=== PATIENT | female | born 1970 | race Caucasian/White ===

== ENCOUNTER 2017-04-27 04:14 | Emergency (ER) | payer OTHER ==
[2017-04-27] MEDS ORDERED: LORazepam 2 MG/ML MDV IVPUSH ONE (04:35)
[2017-04-27] MEDS ORDERED: Ondansetron 4 MG/2 ML SDV IVPUSH ONE (04:35)
[2017-04-27] MEDS ORDERED: Morphine 2 MG/ML Syringe IVPUSH ONE (04:37)
[2017-04-27] MEDS ORDERED: Sodium Chloride 0.9% 1,000 ML IV SCH (04:45)
--- NOTE | 2017-04-27 07:30 | EDM.PDOC ---
<Hodan Holguin - Last Filed: 04/27/17 07:24> ED HPI GENERAL MEDICAL PROBLEM - General Chief Complaint: Gastrointestinal Problem Stated Complaint: VOMITING Time Seen by Provider: 04/27/17 07:24 Source of Information: Reports: Patient History Limitations: Reports: No Limitations - History of Present Illness INITIAL COMMENTS - FREE TEXT/NARRATIVE: pt arrived with marked vomiting from the percocet for the shoulder surgery she had today. She has not been able to hold anything down. Onset: Today Duration: Hour(s): Location: Reports: Upper Extremity, Left Associated Symptoms: Reports: No Other Symptoms left shoulder pain. Pain Score (Numeric/FACES): 9 abdominal pain Pain Score (Numeric/FACES): 5 - Related Data Allergies Allergy/AdvReac Type Severity Reaction Status Date / Time hydromorphone [From Dilaudid] Allergy Nausea Verified 04/27/17 04:55 oxycodone Allergy Nausea and Verified 04/27/17 04:55 Vomiting Home Meds: Home Meds Levonorgestrel-Ethin Estradiol [Orsythia-28 Tablet] 1 tab PO DAILY 09/09/13 [ History] Valsartan/Hydrochlorothiazide [Valsartan-Hctz 80-12.5 mg Tab] 1 tab PO DAILY [History] Ca Citrate/Mgox/Vit D3/B6/Min [Calcium Citrate Plus Tablet] 1,200 mg PO DAILY [History] Fluticasone Propionate [Flonase] 2 spray NASBOTH DAILY PRN 04/03/14 [History] Omeprazole 20 mg PO BIDAC 04/03/14 [History] Topiramate [Topamax] 50 mg PO DAILY 04/03/14 [History] Cyanocobalamin (Vitamin B-12) [Vitamin B-12] 1,000 mcg SL DAILY 09/12/14 [ History] Multivitamin/Iron/Folic Acid [Multi-Day Plus Iron Tablet] 1 tab PO BID 10/24/14 [History] Dicyclomine [Bentyl] 10 mg PO QIDACANDBED PRN 09/23/16 [History] Metoclopramide HCl [Reglan] 10 mg PO Q6H PRN 09/23/16 [History] Ondansetron [Zofran ODT] 4 mg PO Q4H PRN 09/23/16 [History] Oxybutynin Chloride [Ditropan Xl] 5 mg PO DAILY 09/23/16 [History] Pantoprazole Sodium [Protonix] 40 mg PO BID 09/23/16 [History] Cyanocobalamin (Vitamin B-12) [Vitamin B-12] 1,000 mcg SL DAILY 04/27/17 [ History] Gabapentin [Neurontin] 300 mg PO BID 04/27/17 [History] Potassium Chloride [Klor-Con M10] 10 meq PO BID 04/27/17 [History] Thiamine [Vitamin B-1] 100 mg PO DAILY 04/27/17 [History] oxyCODONE [Oxycodone HCl] 10 mg PO Q4H PRN 04/27/17 [History] Past Medical History 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: Reports: Hypertension 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: - Infectious Disease History Infectious Disease History: Reports: Chicken Pox - Past Surgical History HEENT Surgical History: Reports: Tonsillectomy GI Surgical History: Reports: Appendectomy, Bariatric Procedure, Cholecystectomy , EGD, Hernia Repair/Other, Small Bowel Female Surgical History: Reports: Section Endocrine Surgical History: Reports: Other (See Below) Other Endocrine Surgeries/Procedures: partial thyroidectomy Musculoskeletal Surgical History: Reports: Knee Replacement, Shoulder Surgery Social & Family History - Tobacco Use Smoking Status *Q: Never Smoker Years of Tobacco use: 10 Used Tobacco, but Quit: Yes Month Tobacco Last Used: Dec 1995 Second Hand Smoke Exposure: No - Caffeine Use Caffeine Use: Reports: Soda - Alcohol Use Days Per Week of Alcohol Use: 0 Number of Drinks Per Day: 1 Total Drinks Per Week: 0 - Recreational Drug Use Recreational Drug Use: No ED ROS GENERAL - Review of Systems Review Of Systems: See Below Constitutional: Reports: No Symptoms HEENT: Reports: No Symptoms Respiratory: Reports: No Symptoms 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: Reports: No Symptoms Endocrine: Reports: No Symptoms GI/Abdominal: Reports: Vomiting : Reports: No Symptoms Musculoskeletal: Reports: No Symptoms Skin: Reports: No Symptoms ED EXAM, GI/ABD - Physical Exam Exam: See Below Text/Narrative:: pt had shoulder surgery today. She was given percocet and became very ill from that. She has vomited for many hours. Exam Limited By: No Limitations General Appearance: Alert, Anxious, Moderate Distress, Other (pt has uncontrolled pain in the shoulder) Eyes: Bilateral: Normal Appearance, EOMI Ears: Normal TMs Nose: Normal Inspection Throat/Mouth: Normal Inspection Head: Atraumatic Neck: Normal Inspection Respiratory/Chest: No Respiratory Distress 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: Regular Rate, Rhythm GI/Abdominal: Soft, Non-Tender, Other (pt has uncontrolled vomiting. ) Rectal (Female) Exam: Deferred Back Exam: Normal Inspection Extremities: Normal Inspection Neurological: Alert, Oriented, Normal Cognition Course - Vital Signs Last Recorded V/S: Last Vital Signs Temp 99.7 F 04/27/17 08:01 Pulse 76 04/27/17 08:01 Resp 16 04/27/17 08:01 BP 129/78 04/27/17 08:01 Pulse Ox 95 04/27/17 08:01 - Orders/Labs/Meds Orders: Active Orders 24 hr Category Date Time Status Sodium Chloride 0.9% [Normal Saline] 1,000 ml Med 04/27/17 04:45 Active IV ASDIRECTED Medication Orders Sodium Chloride (Normal Saline) 1,000 mls @ 999 mls/hr IV ASDIRECTED JOSE CRUZ Last Admin: 04/27/17 05:57 Dose: 999 mls/hr Meds: Medications Generic Name Dose Route Start Last Admin Trade Name Freq PRN Reason Stop Dose Admin Sodium Chloride 1,000 mls @ 999 mls/hr 04/27/17 04:45 04/27/17 05:57 Normal Saline IV 999 mls/hr ASDIRECTED JOSE CRUZ Administration Discontinued Medications Generic Name Dose Route Start Last Admin Trade Name Freq PRN Reason Stop Dose Admin Lorazepam 0.5 mg 04/27/17 04:35 04/27/17 05:41 Ativan IVPUSH 04/27/17 04:36 0.5 mg ONETIME ONE Administration Morphine Sulfate 2 mg 04/27/17 04:37 04/27/17 06:13 Morphine IVPUSH 04/27/17 04:38 2 mg ONETIME ONE Administration Ondansetron HCl 4 mg 04/27/17 04:35 04/27/17 04:55 Zofran IVPUSH 04/27/17 04:36 4 mg ONETIME ONE Administration - Re-Assessments/Exams Free Text/Narrative Re-Assessment/Exam: 04/27/17 07:31 pt was given zoforan and it appeared to make the vomiting worse. She was given ativan which helped/ She was given morphine 2 mg and the pain was better. Departure - Departure Time of Disposition: 07:43 Disposition: Home, Self-Care 01 Condition: fair Clinical Impression: Postoperative nausea and vomiting Medication side effect Qualifiers: Encounter type: initial encounter Qualified Code(s): T88.7XXA - Unspecified adverse effect of drug or medicament, initial encounter - Discharge Information Referrals: Todd Haines MD [Primary Care Provider] - Forms: ED Department Discharge Care Plan Goals: Advance diet as tolerated, and use hydrocodone for pain and avoid oxycodone. Call orthopedics for an update of your condition and for any treatment for nausea. <Abdirizak Rosales - Last Filed: 04/27/17 08:08> Course - Re-Assessments/Exams Free Text/Narrative Re-Assessment/Exam: 04/27/17 08:06 Patient slowly improved and rested quietly. She'll be discharged with 20 hydrocodone for pain, will hold the Percocet and update orthopedics this morning for any additional medications or treatment for nausea.
[2017-04-27 08:03] VITALS: BP 129/78
== END 2017-04-27 09:26 | disposition home or self-care (01) ==
LOC: JP.ED 04:14
DX: R11.2 Nausea with vomiting, unspecified (principal); T39.1X5A Adverse effect of 4-Aminophenol derivatives, initial encounter; M96.89 Other intraoperative and postprocedural complications and disorders of the musculoskeletal system; I10 Essential (primary) hypertension; Z90.49 Acquired absence of other specified parts of digestive tract; Z96.659 Presence of unspecified artificial knee joint; Z90.89 Acquired absence of other organs; Z79.899 Other long term (current) drug therapy; Z88.8 Allergy status to other drugs, medicaments and biological substances
CPT/HCPCS: 96361; 96374; 96375; 99284; J2060; J2270; J2405; J7040

== ENCOUNTER 2017-06-04 00:11 | Inpatient (IN) | payer OTHER ==
[2017-06-04] MEDS ORDERED: Ondansetron 4 MG/2 ML SDV IVPUSH ONE (00:37)
[2017-06-04] MEDS ORDERED: Sodium Chloride 0.9% 1,000 ML IV SCH (00:45)
[2017-06-04] MEDS ORDERED: Iopamidol 612 MG/ML 100 ML Bottle IV PRN (01:08)
[2017-06-04] MEDS ORDERED: Potassium Chloride 20 MEQ in Premix Bag 1 BAG IV ONE (02:23)
[2017-06-04] MEDS ORDERED: Ondansetron 4 MG Tab.DIS PO PRN (02:29)
[2017-06-04] MEDS ORDERED: Fluticasone Propionate Nasal Spray 16 GM Bottle NASBOTH PRN (02:29)
[2017-06-04] MEDS ORDERED: Albuterol 0.083% 2.5 MG/3 ML Neb Soln NEB PRN (02:29)
[2017-06-04] MEDS ORDERED: Zolpidem 5 MG Tab PO PRN (02:29)
--- NOTE | 2017-06-04 02:31 | EDM.PDOC ---
ED HPI GENERAL MEDICAL PROBLEM - General Chief Complaint: Gastrointestinal Problem Stated Complaint: NAUSEA / VOMITING Time Seen by Provider: 06/04/17 00:34 Source of Information: Reports: Patient, Family History Limitations: Reports: No Limitations - History of Present Illness INITIAL COMMENTS - FREE TEXT/NARRATIVE: nausea and vomiting; corinne landa is a 46 year old female presents to ER with , reports one days hisotyr of nausea, vomiting and diarrhea. She was at a all day, then drove back home to [place]. wWhe she did't feel good, then devlopes acute abdominal. reports nausea, vomiting, watery diarrhea and abdominal pain last meal someting today. 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 Upper Abdomen Pain Score (Numeric/FACES): 4 - Related Data Allergies Allergy/AdvReac Type Severity Reaction Status Date / Time hydromorphone [From Dilaudid] Allergy Nausea Verified 06/04/17 00:21 oxycodone Allergy Nausea and Verified 06/04/17 00:21 Vomiting Home Meds: Home Meds Levonorgestrel-Ethin Estradiol [Orsythia-28 Tablet] 1 tab PO DAILY 09/09/13 [ History] Valsartan/Hydrochlorothiazide [Valsartan-Hctz 80-12.5 mg Tab] 1 tab PO DAILY [History] Ca Citrate/Mgox/Vit D3/B6/Min [Calcium Citrate Plus Tablet] 1,200 mg PO DAILY [History] Fluticasone Propionate [Flonase] 2 spray NASBOTH DAILY PRN 04/03/14 [History] Omeprazole 20 mg PO BIDAC 04/03/14 [History] Topiramate [Topamax] 50 mg PO DAILY 04/03/14 [History] Multivitamin/Iron/Folic Acid [Multi-Day Plus Iron Tablet] 1 tab PO BID 10/24/14 [History] Dicyclomine [Bentyl] 10 mg PO QIDACANDBED PRN 09/23/16 [History] Metoclopramide HCl [Reglan] 10 mg PO Q6H PRN 09/23/16 [History] Ondansetron [Zofran ODT] 4 mg PO Q4H PRN 09/23/16 [History] Oxybutynin Chloride [Ditropan Xl] 5 mg PO DAILY 09/23/16 [History] Pantoprazole Sodium [Protonix] 40 mg PO BID 09/23/16 [History] Cyanocobalamin (Vitamin B-12) [Vitamin B-12] 1,000 mcg SL DAILY 04/27/17 [ History] Gabapentin [Neurontin] 300 mg PO BID 04/27/17 [History] Potassium Chloride [Klor-Con M10] 10 meq PO BID 04/27/17 [History] Thiamine [Vitamin B-1] 100 mg PO DAILY 04/27/17 [History] Past Medical History 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: Reports: Hypertension 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: - Infectious Disease History Infectious Disease History: Reports: Chicken Pox - Past Surgical History HEENT Surgical History: Reports: Tonsillectomy GI Surgical History: Reports: Appendectomy, Bariatric Procedure, Cholecystectomy , EGD, Hernia Repair/Other, Small Bowel Female Surgical History: Reports: Section Endocrine Surgical History: Reports: Other (See Below) Other Endocrine Surgeries/Procedures: partial thyroidectomy Musculoskeletal Surgical History: Reports: Knee Replacement, Shoulder Surgery Social & Family History - Tobacco Use Smoking Status *Q: Never Smoker Years of Tobacco use: 10 Used Tobacco, but Quit: Yes Month Tobacco Last Used: Dec 1995 Second Hand Smoke Exposure: No - Caffeine Use Caffeine Use: Reports: Soda - Alcohol Use Days Per Week of Alcohol Use: 0 Number of Drinks Per Day: 1 Total Drinks Per Week: 0 - Recreational Drug Use Recreational Drug Use: No - Living Situation & Occupation Living situation: Reports: (lives in [place], [place]. with , 10 children in ages 21 yr to 5 yrs. (10 adopted)) ED ROS GENERAL - Review of Systems Review Of Systems: See Below Constitutional: Reports: Fever, Chills, Malaise, Weight Gain Respiratory: Reports: No Symptoms 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: Reports: No Symptoms Endocrine: Reports: No Symptoms GI/Abdominal: Reports: Abdominal Pain, Diarrhea, Nausea, Vomiting : Reports: No Symptoms Musculoskeletal: Reports: Shoulder Pain (shoulder surgery 3 weeks ago.) Skin: Reports: Other (deer tick 2 weeks ago) Neurological: Reports: No Symptoms Psychiatric: Reports: No Symptoms Hematologic/Lymphatic: Reports: No Symptoms Immunologic: Reports: No Symptoms ED EXAM, GENERAL - Physical Exam Exam: See Below Exam Limited By: No Limitations General Appearance: Alert, WD/WN, Mild Distress Eye Exam: Bilateral Eye: Normal Inspection Ears: Normal External Exam, Normal Canal, Hearing Grossly Normal, Normal TMs Ear Exam: Bilateral Ear: Auricle Normal, Canal Normal, TM normal Nose: Normal Inspection Throat/Mouth: Normal Inspection, Normal Lips, Normal Teeth, Normal Gums, Normal Oropharynx, Normal Voice, No Airway Compromise Head: Atraumatic Neck: Normal Inspection, Supple, Non-Tender, Full Range of Motion Respiratory/Chest: No Respiratory Distress, Lungs Clear, Normal Breath Sounds, No Accessory Muscle Use, Chest Non-Tender 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: Normal Peripheral Pulses, Regular Rate, Rhythm, No Murmur GI/Abdominal: No Organomegaly, No Mass, Tender (epigastric area) (Female) Exam: Deferred Rectal (Female) Exam: Deferred Back Exam: Normal Inspection, Full Range of Motion, NT Extremities: Normal Inspection, Normal Range of Motion, Non-Tender, Normal Capillary Refill, No Pedal Edema Neurological: No Motor/Sensory Deficits Psychiatric: Normal Affect, Normal Mood Skin Exam: Warm, Dry, Intact, Normal Color, No Rash Lymphatic: No Adenopathy Course - Vital Signs Last Recorded V/S: Last Vital Signs Temp 36.7 C 06/04/17 01:30 Pulse 77 06/04/17 01:30 Resp 14 06/04/17 01:30 BP 134/64 06/04/17 01:30 Pulse Ox 98 06/04/17 01:30 - Orders/Labs/Meds Orders: Active Orders 24 hr Category Date Time Status Patient Status Manage Transfer [TRANSFER] Routine ADT 06/04/17 02:00 Active Abdomen Pelvis w Cont [CT] Stat Exams 06/04/17 00:38 Taken Sodium Chloride 0.9% [Normal Saline] 1,000 ml Med 06/04/17 00:45 Active IV ASDIRECTED Resuscitation Status Routine Resus Stat 06/04/17 02:01 Ordered Medication Orders Sodium Chloride (Normal Saline) 1,000 mls @ 999 mls/hr IV ASDIRECTED JOSE CRUZ Last Admin: 06/04/17 00:53 Dose: 999 mls/hr Potassium Chloride 20 meq/ (Premix) 100 mls @ 50 mls/hr IV ONETIME ONE Stop: 06/04/17 04:22 Labs: Laboratory Tests 06/04/17 06/04/17 06/04/17 Range/Units 00:47 00:47 01:08 WBC 14.4 H (4.5-11.0) K/uL RBC 4.29 (3.30-5.50) M/uL Hgb 13.3 (12.0-15.0) g/dL Hct 38.2 (36.0-48.0) % MCV 89 (80-98) fL MCH 31 (27-31) pg MCHC 35 (32-36) % Plt Count 295 (150-400) K/uL Neut % (Auto) 80 H (36-66) % Lymph % (Auto) 15 L (24-44) % [place] % (Auto) 5 (2-6) % Eos % (Auto) 1 L (2-4) % Baso % (Auto) 0 (0-1) % Sodium 141 (140-148) mmol/L Potassium 3.1 L (3.6-5.2) mmol/L Chloride 106 (100-108) mmol/L Carbon Dioxide 26 (21-32) mmol/L Anion Gap 12.1 (5.0-14.0) mmol/L BUN 16 (7-18) mg/dL Creatinine 0.7 (0.6-1.0) mg/dL Est Cr Clr Drug Dosing 82.16 mL/min Estimated GFR (MDRD) > 60 (>60) Glucose 113 H (74-106) mg/dL Calcium 8.5 (8.5-10.1) mg/dL Magnesium 2.1 (1.8-2.4) mg/dL Total Bilirubin 0.3 (0.2-1.0) mg/dL AST 26 (15-37) U/L ALT 45 (12-78) U/L Alkaline Phosphatase 74 (46-116) U/L Troponin I < 0.017 (0.000-0.056) ng/mL Total Protein 7.4 (6.4-8.2) g/dL Albumin 3.7 (3.4-5.0) g/dL Globulin 3.7 H (2.3-3.5) g/dL Albumin/Globulin Ratio 1.0 L (1.2-2.2) Amylase 147 H D (25-115) U/L Lipase 1850 H (73-393) U/L Urine Color Yellow Urine Appearance Clear Urine pH 5.0 (4.5-8.0) Ur Specific [place] 1.020 (1.008-1.030) Urine Protein Negative (NEGATIVE) mg/dL Urine Glucose (UA) Normal (NEGATIVE) mg/dL Urine Ketones Negative (NEGATIVE) mg/dL Urine Occult Blood Large (NEGATIVE) Urine Nitrite Negative (NEGATIVE) Urine Bilirubin Small (NEGATIVE) Urine Urobilinogen Normal (NORMAL) mg/dL Ur Leukocyte Esterase Negative (NEGATIVE) Urine RBC 0-5 (0-5) Urine WBC 0-5 (0-5) Ur Epithelial Cells Few Amorphous Sediment Not seen Urine Bacteria Few Urine Mucus Not seen Meds: Medications Generic Name Dose Route Start Last Admin Trade Name Freq PRN Reason Stop Dose Admin Sodium Chloride 1,000 mls @ 999 mls/hr 06/04/17 00:45 06/04/17 00:53 Normal Saline IV 999 mls/hr ASDIRECTED JOSE CRUZ Administration Potassium Chloride 20 meq/ 100 mls @ 50 mls/hr 06/04/17 02:23 Premix IV 06/04/17 04:22 ONETIME ONE Discontinued Medications Generic Name Dose Route Start Last Admin Trade Name Freq PRN Reason Stop Dose Admin Sodium Chloride 70 mls @ 3 mls/sec 06/04/17 01:08 06/04/17 01:14 Normal Saline IV 06/04/17 01:09 3 mls/sec ASDIRECTED ONE Administration Iopamidol 100 ml 06/04/17 01:08 06/04/17 01:14 Isovue-300 (61%) IV 06/04/17 01:09 100 ml . DIRECTED PRN Administration RADIOLOGY EXAM Ondansetron HCl 4 mg 06/04/17 00:37 06/04/17 00:52 Zofran IVPUSH 06/04/17 00:38 4 mg ONETIME ONE Administration - Re-Assessments/Exams Free Text/Narrative Re-Assessment/Exam: 06/04/17 02:39 IV fluids, Iv zofran given in ER with improvement labs; K+3.1, glucose 113, amylase 147, lipase 1850, cr 0.69 CT abdomen pelvis impression; findings worrisone mfor atleast partial small bowel obstruction with transition point near the distal small bowel anastomosis for gastric bypass involving the biliary enteric limb. fecal loading of the colon. plan; admit for small bowel obstruction and acute pancreatitis consult to Dr. Stevens in the morning. Departure - Departure Time of Disposition: 02:46 Disposition: Admitted As Inpatient 65 Condition: Fair Clinical Impression: Small bowel obstruction, Pancreatitis - Discharge Information - My Orders Last 24 Hours: My Active Orders 06/04/17 00:38 Abdomen Pelvis w Cont [CT] Stat 06/04/17 00:45 Sodium Chloride 0.9% [Normal Saline] 1,000 ml IV ASDIRECTED 06/04/17 02:00 Patient Status Manage Transfer [TRANSFER] Routine 06/04/17 02:01 Resuscitation Status Routine - Assessment/Plan Last 24 Hours: My Active Orders 06/04/17 00:38 Abdomen Pelvis w Cont [CT] Stat 06/04/17 00:45 Sodium Chloride 0.9% [Normal Saline] 1,000 ml IV ASDIRECTED 06/04/17 02:00 Patient Status Manage Transfer [TRANSFER] Routine 06/04/17 02:01 Resuscitation Status Routine
[2017-06-04] MEDS: Lactated Ringers 1,000 ML IV SCH ×3 (02:39→17:53)
--- NOTE | 2017-06-04 03:03 | PCM.HP ---
H&P History of Present Illness - General Date of Service: 06/04/17 Admit Problem/Dx: small bowel obstruction, panceatitis Source of Information: Patient, Family () - History of Present Illness Initial Comments - Free Text/Narative: abdominal pain for one day. this is a 46 year old female presents to ER with ,concerns of abdominal pain , nausea, vomiting since early afternoon. She reports a past history of pancreatitis, this is similar to past illness. hx of gastric bypass. -last meal at 6pm -intermittent watery diarrha -nauesea all day, vomiting this afternoon and evening. Duration of Symptoms: Reports: Constant, Getting Worse Location: Reports: Abdomen Quality: Reports: Same as Previous Episode Improves with: Reports: None Worsens with: Reports: None Associated Symptoms: Reports: Fever/Chills, Nausea/Vomiting Upper Abdomen Pain Score (Numeric/FACES): 4 - Related Data Allergies/Adverse Reactions: Allergies Allergy/AdvReac Type Severity Reaction Status Date / Time hydromorphone [From Dilaudid] Allergy Nausea Verified 06/04/17 00:21 oxycodone Allergy Nausea and Verified 06/04/17 00:21 Vomiting Home Medications: Home Meds Levonorgestrel-Ethin Estradiol [Orsythia-28 Tablet] 1 tab PO DAILY 09/09/13 [ History] Valsartan/Hydrochlorothiazide [Valsartan-Hctz 80-12.5 mg Tab] 1 tab PO DAILY [History] Ca Citrate/Mgox/Vit D3/B6/Min [Calcium Citrate Plus Tablet] 1,200 mg PO DAILY [History] Fluticasone Propionate [Flonase] 2 spray NASBOTH DAILY PRN 04/03/14 [History] Omeprazole 20 mg PO BIDAC 04/03/14 [History] Topiramate [Topamax] 50 mg PO DAILY 04/03/14 [History] Multivitamin/Iron/Folic Acid [Multi-Day Plus Iron Tablet] 1 tab PO BID 10/24/14 [History] Dicyclomine [Bentyl] 10 mg PO QIDACANDBED PRN 09/23/16 [History] Metoclopramide HCl [Reglan] 10 mg PO Q6H PRN 09/23/16 [History] Ondansetron [Zofran ODT] 4 mg PO Q4H PRN 09/23/16 [History] Oxybutynin Chloride [Ditropan Xl] 5 mg PO DAILY 09/23/16 [History] Pantoprazole Sodium [Protonix] 40 mg PO BID 09/23/16 [History] Cyanocobalamin (Vitamin B-12) [Vitamin B-12] 1,000 mcg SL DAILY 04/27/17 [ History] Gabapentin [Neurontin] 300 mg PO BID 04/27/17 [History] Potassium Chloride [Klor-Con M10] 10 meq PO BID 04/27/17 [History] Thiamine [Vitamin B-1] 100 mg PO DAILY 04/27/17 [History] Past Medical History 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: Reports: Hypertension [employer]ING [employer]INE [employer]ATOR History: Reports: - Infectious Disease History Infectious Disease History: Reports: Chicken Pox - Past Surgical History HEENT Surgical History: Reports: Tonsillectomy GI Surgical History: Reports: Appendectomy, Bariatric Procedure, Cholecystectomy , EGD, Hernia Repair/Other, Small Bowel Female Surgical History: Reports: Section Endocrine Surgical History: Reports: Other (See Below) Other Endocrine Surgeries/Procedures: partial thyroidectomy Musculoskeletal Surgical History: Reports: Knee Replacement, Shoulder Surgery Social & Family History - Tobacco Use Smoking Status *Q: Never Smoker Years of Tobacco use: 10 Used Tobacco, but Quit: Yes Month Tobacco Last Used: Dec 1995 Second Hand Smoke Exposure: No - Caffeine Use Caffeine Use: Reports: Soda - Alcohol Use Days Per Week of Alcohol Use: 0 Number of Drinks Per Day: 1 Total Drinks Per Week: 0 - Recreational Drug Use Recreational Drug Use: No - Living Situation & Occupation Living situation: Reports: (lives in [place], [place]. with , 10 children in ages 21 yr to 5 yrs. (10 adopted)) H&P Review of Systems - Review of Systems: Review Of Systems: See Below General: Reports: Fever, Chills HEENT: Reports: No Symptoms Pulmonary: Reports: No Symptoms 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: Reports: No Symptoms Gastrointestinal: Reports: Abdominal Pain, Decreased Appetite, Distension, Nausea, Vomiting Genitourinary: Reports: No Symptoms Musculoskeletal: Reports: Shoulder Pain (left; surgery 3 - 4 weeks ago) Skin: Reports: Pallor Psychiatric: Reports: No Symptoms Neurological: Reports: No Symptoms Hematologic/Lymphatic: Reports: No Symptoms Immunologic: Reports: No Symptoms Exam - Exam Exam: See Below - Vital Signs Vital Signs: Last Vital Signs Temp 36.7 C 06/04/17 01:30 Pulse 77 06/04/17 01:30 Resp 14 06/04/17 01:30 BP 134/64 06/04/17 01:30 Pulse Ox 98 06/04/17 01:30 Weight: 68.039 kg - Exam General: Alert, Oriented, Mild Distress HEENT: PERRLA, Hearing Intact, Mucosa Moist & [place], Nares Patent, Normal Nasal Septum, Posterior Pharynx Clear, Conjunctiva Clear, EOMI, EACs Clear, TMs Clear Neck: Supple, Trachea Midline, 2 Lungs: Clear to Auscultation, Normal Respiratory Effort 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: Regular Rate, Normal S1, Normal S2 Abdomen: Soft, Pelvis Stable, Tenderness, Hypoactive Bowel Sounds (Female) Exam: Deferred Rectal (Female) Exam: Deferred Back Exam: Normal Inspection Extremities: Normal Inspection Skin: Warm, Dry, Intact, Incision Neurological: Strength Equal Bilateral Neuro Extensive - Mental Status: Alert, Oriented x3, Normal Mood/Affect, Normal Cognition, Memory Intact Neuro Extensive - Motor, Sensory, Reflexes: Normal Gait, Normal Reflexes Psychiatric: Alert, Normal Affect, Normal Mood - Patient Data Result Diagrams: 06/04/17 00:47 06/04/17 00:47 *Q Meaningful Use (ADM) - VTE *Q VTE Criteria *Q: - Stroke *Q Stroke Criteria *Q: - AMI *Q AMI Criteria *Q: - Problem List (1) Pancreatitis SNOMED Code(s): 16275207 ICD Code: K85.90 - ACUTE PANCREATITIS WITHOUT NECROSIS OR INFECTION, UNSP Status: Acute Priority: High Current Visit: Yes Qualifiers: Chronicity: acute Pancreatitis type: unspecified pancreatitis type Acute pancreatitis complication: unspecified Qualified Code(s): K85.90 - Acute pancreatitis without necrosis or infection, unspecified (2) Small bowel obstruction SNOMED Code(s): 696287616 ICD Code: K56.69 - OTHER INTESTINAL OBSTRUCTION Status: Acute Priority: High Current Visit: Yes (3) Hx of bariatric surgery SNOMED Code(s): 104919213, 705324903 ICD Code: Z98.84 - BARIATRIC SURGERY STATUS Status: Chronic Priority: High Current Visit: Yes (4) Hypokalemia SNOMED Code(s): 51196791 ICD Code: E87.6 - HYPOKALEMIA Status: Acute Priority: High Current Visit: Yes Problem List Initiated/Reviewed/Updated: Yes Orders Last 24hrs: Active Orders 24 hr Category Date Time Status Hydrochlorothiazide Med 06/04/17 09:00 Active 12.5 mg PO DAILY Potassium Chloride [KCL 20 MEQ in Water 100 ML] 20 meq Med 06/04/17 02:23 Ordered Premix Bag 1 bag IV ONETIME Medication Orders Hydrocodone Bitart/Acetaminophen ([place] 325-5 Mg) 1 tab PO Q4H PRN PRN Reason: Abdominal Pain Albuterol (Proventil Neb Soln) 2.5 mg NEB Q4H PRN PRN Reason: Shortness Of Breath/wheezing Fluticasone Propionate (Flonase) 0 gm NASBOTH DAILY PRN PRN Reason: Allergies Gabapentin (Neurontin) 300 mg PO BID JOSE CRUZ Hydrochlorothiazide (Hydrochlorothiazide) 12.5 mg PO DAILY JOSE CRUZ Potassium Chloride 20 meq/ (Premix) 100 mls @ 50 mls/hr IV ONETIME ONE Stop: 06/04/17 04:22 Lactated Ringer's (Ringers, Lactated) 1,000 mls @ 125 mls/hr IV ASDIRECTED JOSE CRUZ Last Admin: 06/04/17 02:39 Dose: 125 mls/hr Lorazepam (Ativan) 1 mg IV Q6H PRN PRN Reason: Nausea/Vomiting Non-Formulary Medication (Levonorgestrel-Ethin Estradiol [Orsythia-28 Tablet]) 1 tab PO DAILY JOSE CRUZ Ondansetron HCl (Zofran Odt) 4 mg PO Q6H PRN PRN Reason: Nausea able to take PO Pantoprazole Sodium (Protonix Iv) 40 mg IV DAILY [facility] Potassium Chloride (Potassium Chloride) 10 meq PO BIDMEALS JOSE CRUZ Thiamine HCl (Vitamin B-1) 100 mg PO DAILY JOSE CRUZ Topiramate (Topamax) 50 mg PO DAILY JOSE CRUZ Valsartan (Diovan) 80 mg PO DAILY JOSE CRUZ Zolpidem Tartrate (Ambien) 5 mg PO BEDTIME PRN PRN Reason: Sleep Assessment/Plan Comment:: ASSESSMENT / PLAN -This is a 46 year old female present to ER with complaints of abdominal pain starting in afternoon, she decided to come to the hospital/ER for further care and treatment Plan Small Bowel Obstruction Pancreatitis hx of gastric bypass -keep NPO -IV LR -consult to Surgery Team; Dr. Fabricio Stevens -labs order for am Hypokalemia -IV Potassium 20 meq -order for am PO Potassium -repeat bmp Maintenance issues -Orders home meds: -Nutrition: NPO diet -Zamora catheter not indicated at this time -DVT: SCD -PPI; IV Protonix 40mg daily CODE STATUS: FULL CODE Admission status: Admit to [address] [place] [address] Admission justification. This patient will be admitted for inpatient services and is medically appropriate meeting medical necessity for inpatient admission as outlined in my documentation. I reasonably expect the patient will require inpatient services that span. Time over 2 midnights. I reasonably expect this patient to be discharged or transferred within 96 hours after admission to the [facility]. Disposition; home Primary care provider: Hospitalist: Dr. Pineda
[2017-06-04] MEDS: LORazepam 2 MG/ML MDV IV PRN (03:42)
[2017-06-04] MEDS: Potassium Chloride 10 MEQ Cap.ER PO SCH ×2 (08:32→17:41)
[2017-06-04] MEDS: Topiramate 25 MG Tab PO SCH (08:33)
[2017-06-04] MEDS: Thiamine 100 MG Tab PO SCH (08:34)
[2017-06-04] MEDS: Hydrochlorothiazide 12.5 MG Cap PO SCH (08:35)
[2017-06-04] MEDS: Gabapentin 300 MG Cap PO SCH ×2 (08:35→20:52)
[2017-06-04] MEDS: Pantoprazole 40 MG Vial IV SCH (08:45)
[2017-06-04] MEDS ORDERED: LEVONORGESTREL ETHIN ESTRADIOL PO SCH (09:00)
[2017-06-04] MEDS: Oxybutynin 5 MG Tab PO SCH ×2 (10:41→20:52)
[2017-06-04] MEDS: Ondansetron 4 MG/2 ML SDV IV PRN ×3 (12:03→22:24)
[2017-06-04] MEDS: ETHINYL ESTRADIOL PO SCH (12:07)
[2017-06-04] MEDS: LEVONORGESTREL PO SCH (12:07)
[2017-06-04] MEDS: Acetaminophen/HYDROcodone 325-5 MG Tab PO PRN ×3 (13:52→22:24)
[2017-06-05] MEDS: Lactated Ringers 1,000 ML IV SCH (03:15)
[2017-06-05] MEDS: Ondansetron 4 MG/2 ML SDV IV PRN ×2 (03:24→19:34)
[2017-06-05] MEDS: Acetaminophen/HYDROcodone 325-5 MG Tab PO PRN ×3 (03:24→23:33)
[2017-06-05] MEDS: LORazepam 2 MG/ML MDV IV PRN (04:40)
[2017-06-05] MEDS ORDERED: SODIUM CHLORIDE 0.9% IV ONE (05:40)
[2017-06-05] MEDS ORDERED: POTASSIUM ACETATE IV ONE (05:40)
[2017-06-05] MEDS ORDERED: Bupivacaine 0.5%/EPINEPHrine 1:200,000 50 ML MDV ONE (06:48)
[2017-06-05] MEDS ORDERED: Ondansetron 4 MG/2 ML SDV ONE (07:18)
[2017-06-05] MEDS ORDERED: Rocuronium 50 MG/5 ML Vial ONE (07:18)
[2017-06-05] MEDS ORDERED: Neostigmine Methylsulfate 1 MG/ML 5 ML Syringe ONE (07:18)
[2017-06-05] MEDS ORDERED: Succinylcholine/Normal Saline 200 MG/10 ML Syringe ONE (07:18)
[2017-06-05] MEDS ORDERED: fentaNYL 250 MCG/5 ML SDV ONE ×2 (07:18→09:23)
[2017-06-05] MEDS ORDERED: Dexamethasone 4 MG/ML SDV ONE (07:18)
[2017-06-05] MEDS ORDERED: Propofol 200 MG/20 ML SDV ONE (07:18)
[2017-06-05] MEDS ORDERED: Meropenem 500 MG SDV ONE (07:55)
[2017-06-05] MEDS: Potassium Chloride 10 MEQ Cap.ER PO SCH ×2 (07:56→18:03)
[2017-06-05] MEDS: Hydrochlorothiazide 12.5 MG Cap PO SCH (08:09)
[2017-06-05] MEDS: Thiamine 100 MG Tab PO SCH (08:10)
[2017-06-05] MEDS: Oxybutynin 5 MG Tab PO SCH ×2 (08:10→21:05)
[2017-06-05] MEDS: Topiramate 25 MG Tab PO SCH (08:10)
[2017-06-05] MEDS: Gabapentin 300 MG Cap PO SCH ×2 (08:10→21:06)
[2017-06-05] MEDS ORDERED: cefOXitin 2 GM in Sodium Chloride 0.9% 50 ML IV ONE ×2 (09:30→11:00)
[2017-06-05] MEDS ORDERED: Lactated Ringers 1,000 ML ONE (09:32)
[2017-06-05] MEDS ORDERED: Meperidine 300 MG/30 ML PCA Vial IV PRN (10:07)
[2017-06-05] MEDS ORDERED: Naloxone 0.4 MG/ML SDV IV PRN (10:07)
[2017-06-05] MEDS ORDERED: hydrOXYzine HCl 100 MG/2 ML SDV IM ONE (10:30)
--- NOTE | 2017-06-05 10:59 | PN ---
DATE OF SERVICE: 06/04/2017 The patient has been afebrile with stable vital signs overnight. Generally, she looks very comfortable at this point. She does report that the abdominal discomfort that she had quite severely yesterday has been present for several weeks intermittently indicating we are dealing with more of a chronic partial obstruction. Of note, her amylase and lipase are mildly elevated, but liver function tests are unremarkable. It is uncertain what the cause of that would be, but overall, it appeared we are primarily dealing with a partial small bowel obstruction. Her abdomen is nontender this morning and only minimally distended. The patient will be to have things decompressed somewhat today. We will proceed with a laparoscopy, possible laparotomy tomorrow with small bowel obstruction release along with bowel resection if indicated. However, we will restart some of her oral pain medications today. Recheck some labs tomorrow, particularly looking at the amylase and lipase once again and work on maximizing activity and pulmonary toilet. Fabricio Stevens MD /[id number]
[2017-06-05] MEDS: Potassium Acetate 20 MEQ, Lidocaine 1% 2 ML in Sodium Chloride 0.9% 100 ML IV SCH ×2 (11:48→15:48)
[2017-06-05] MEDS: Pantoprazole 40 MG Vial IV SCH (11:50)
[2017-06-05] MEDS ORDERED: Dextrose 5%-Lactated Ringers 1,000 ML IV SCH (12:15)
[2017-06-05] MEDS: cefOXitin 2 GM in Sodium Chloride 0.9% 50 ML IV SCH ×2 (14:15→21:01)
[2017-06-05] MEDS: ETHINYL ESTRADIOL PO SCH (14:16)
[2017-06-05] MEDS: LEVONORGESTREL PO SCH (14:16)
[2017-06-05] MEDS: diphenhydrAMINE 50 MG/ML SDV IVPUSH PRN (21:44)
[2017-06-06] MEDS: cefOXitin 2 GM in Sodium Chloride 0.9% 50 ML IV SCH (01:55)
[2017-06-06] MEDS: LORazepam 2 MG/ML MDV IV PRN ×2 (01:55→19:30)
[2017-06-06] MEDS ORDERED: Iohexol 647 MG/ML 50 ML SDV PO STA (02:11)
[2017-06-06] MEDS: Acetaminophen/HYDROcodone 325-5 MG Tab PO PRN (04:19)
[2017-06-06] MEDS ORDERED: Sodium Chloride 0.9% 10 ML Syringe IV SCH (07:45)
[2017-06-06] MEDS ORDERED: Dextrose 5%-Lactated Ringers 1,000 ML IV SCH (07:45)
[2017-06-06] MEDS: Acetaminophen/HYDROcodone 325-7.5 MG Tab PO PRN ×4 (07:59→20:51)
[2017-06-06] MEDS: Hydrochlorothiazide 12.5 MG Cap PO SCH (08:00)
[2017-06-06] MEDS: Oxybutynin 5 MG Tab PO SCH ×2 (08:02→20:53)
[2017-06-06] MEDS: Potassium Chloride 10 MEQ Cap.ER PO SCH ×2 (08:02→16:17)
[2017-06-06] MEDS: Thiamine 100 MG Tab PO SCH (08:02)
[2017-06-06] MEDS: Topiramate 25 MG Tab PO SCH (08:06)
[2017-06-06] MEDS: Pantoprazole 40 MG Vial IV SCH (08:12)
--- NOTE | 2017-06-06 09:18 | CR ---
UGI wo KUB HISTORY: Pain, prior gastric bypass. COMPARISON: CT scan 06/04/2017. FINDINGS: 2 KUB images after oral contrast was administered. There is no obstruction or extravasatio n of contrast. No free air seen. The second image demonstrates contrast within normal caliber distal small bowel. Impression: No acute findings.
[2017-06-06] MEDS: Polyethylene Glycol 3350 Powder 119 GM Bottle PO SCH ×2 (09:50→14:25)
[2017-06-06] MEDS: Gabapentin 300 MG Cap PO SCH ×2 (10:03→20:54)
[2017-06-06] MEDS: ETHINYL ESTRADIOL PO SCH (11:46)
[2017-06-06] MEDS: LEVONORGESTREL PO SCH (11:46)
[2017-06-06] MEDS: Magnesium Sulfate/Water 2 GM in Premix Bag 1 BAG IV SCH ×2 (11:55→18:09)
[2017-06-07] MEDS: Acetaminophen/HYDROcodone 325-7.5 MG Tab PO PRN (00:19)
[2017-06-07] MEDS: Magnesium Sulfate/Water 2 GM in Premix Bag 1 BAG IV SCH ×2 (00:20→05:29)
[2017-06-07] MEDS: diphenhydrAMINE 50 MG/ML SDV IVPUSH PRN (00:56)
[2017-06-07] MEDS ORDERED: hydrOXYzine HCl 100 MG/2 ML SDV IM ONE (03:02)
[2017-06-07] MEDS ORDERED: Meperidine PF 75 MG/ML Syringe IM ONE (03:02)
[2017-06-07] MEDS ORDERED: Pantoprazole 40 MG Tab.CR PO SCH (07:30)
[2017-06-07] MEDS: Potassium Chloride 10 MEQ Cap.ER PO SCH (07:40)
[2017-06-07] MEDS ORDERED: Celecoxib 200 MG Cap PO ONE (09:00)
[2017-06-07] MEDS: Hydrochlorothiazide 12.5 MG Cap PO SCH (11:02)
[2017-06-07] MEDS: Gabapentin 300 MG Cap PO SCH (11:03)
[2017-06-07] MEDS: Oxybutynin 5 MG Tab PO SCH (11:05)
[2017-06-07 11:07] VITALS: BP 126/72
[2017-06-07] MEDS: ETHINYL ESTRADIOL PO SCH (11:07)
[2017-06-07] MEDS: Topiramate 25 MG Tab PO SCH (11:07)
[2017-06-07] MEDS: LEVONORGESTREL PO SCH (11:07)
[2017-06-07] MEDS: Thiamine 100 MG Tab PO SCH (11:08)
--- NOTE | 2017-06-07 11:32 | CR ---
Abdomen 2V AP Flat Upright HISTORY: Follow-up of obstipation. COMPARISON: Plain films 06/06/2017. FINDINGS: Lotus George administered oral contrast that was in the small bowel is now seen within cary l caliber colon. There is some gas diffusely throughout small and large bowel presumably representin g ileus.
--- NOTE | 2017-06-08 11:10 | PN ---
DATE OF SERVICE: 06/06/2017 The patient has been afebrile with stable vital signs. Her upper GI x-ray looks good this morning, and overall, her oral intake has been very satisfactory on a regular diet. We will turn the IV down to 40 mL an hour and then saline lock, if she continues to eat well. Her biggest problem is on x-ray she has a very large amount of stool and air in the colon. There is no significant small bowel distention. We will give 2 doses of MiraLAX 119 g today to get the bowels going. We will have her get in the shower and repeat her x-rays in the morning. She will be likely be ready for home tomorrow. Fabricio Stevens MD /[id number]
--- NOTE | 2017-06-08 14:49 | DISCH ---
FINAL DIAGNOSIS: Partial obstruction of the biliopancreatic limb of gastric bypass. SECONDARY DIAGNOSES: 1. History of hyperlipidemia. 2. History of hypothyroidism, treated. 3. Bariatric surgery status. 4. History of hypertension. OPERATIVE PROCEDURE: This was done on 06/05/2017. It was a diagnostic laparoscopy with lysis of adhesions and 1. Revision of jejunojejunostomy with additional anastomosis between common limb and biliopancreatic limb. 2. Placement of Interceed mesh to reduce recurrent adhesion formation. SUMMARY: This 46-year-old female presenting with a several-week history of increasing abdominal pain. On admission, it was noted on a CT scan to have a distended biliopancreatic limb. Of note, her amylase and lipase were up somewhat and it is uncertain as to what the cause of that was, but the lipase next day had normalized. At the time of diagnostic laparoscopy was noted to have somewhat of a dilated biliopancreatic limb and an additional anastomosis between the biliopancreatic limb and the common limb was then constructed to facilitate drainage of the biliopancreatic limb. The patient is quite aware of adhesions and Interceed mesh was placed to limit recurrent adhesion formation between visceral and the pelvic abdominal wall. Postoperatively, she has been somewhat constipated, I think she probably has a significant degree of chronic constipation as her colon is quite elongated and wide in terms of overall dimension. We did keep her an extra day and gave her MiraLAX yesterday and she did move her bowels this morning. Most of stool has gone out of her colon, but she has a large amount of air present in the colon. The patient will be discharged home. She will be on her usual home medications plus Celebrex 200 mg p.o. daily. We will start this in an attempt to decrease the amount of narcotic that she uses and [place] 10/325, 1-2 tabs q.4 hours p.r.n. pain #40, Senna Plus 2 tablets daily, and MiraLAX p.r.n. She will be following up with Nat Xiong in [facility] on 06/15.
--- NOTE | 2017-06-14 12:44 | OR ---
DATE OF PROCEDURE: 06/05/2017 PREOPERATIVE DIAGNOSIS: Partial small bowel obstruction of the biliary pancreatic limb of the jejunojejunostomy. POSTOPERATIVE DIAGNOSES: 1. Partial small bowel obstruction of the biliary pancreatic limb of the jejunojejunostomy. 2. Extensive adhesions between the small bowel and anterior abdominal wall and pelvic sidewall. OPERATIVE PROCEDURES: Diagnostic laparoscopy with lysis of adhesions: 1. Revision of the jejunojejunostomy with additional anastomosis between the common limb and the biliopancreatic limb (10284). 2. Placement of Intercede mesh to displace small bowel and other viscera from pelvic and abdominal wall (23265). ANESTHESIA: General. INDICATION FOR PROCEDURE: This is a 46-year-old presenting with a picture of a partial small bowel obstruction. This had been going on for at least several weeks and the plan is to proceed with a diagnostic laparoscopy and laparotomy if necessary, and/or release of the small bowel obstruction with bowel resection as indicated. Potential risks including bleeding, infection, leaks from any GI tract closures, problems with persistence or recurrence of symptoms over time were all reviewed along with more possibly cardiopulmonary, septic, or hemorrhagic complications leading to and the patient wishes to proceed. DETAILS OF PROCEDURE: The patient was taken to the operating room. After general endotracheal anesthesia was induced, she was placed in a lithotomy position. Zamora catheter was inserted and the abdomen was prepped and draped. In the left lower quadrant, a transverse incision was made and the peritoneal cavity entered under direct vision with an Optiview trocar inflated to 15 mmHg pressure with CO2. Laparoscope was then reinserted. No underlying trocar insertion site injuries were seen. Following this, eventually 4 additional trocars were placed across the upper mid abdomen and general exploration was undertaken as one traced down the Calli limb to the area of the jejunojejunostomy, that section of the anastomosis leading on to common limbs appeared to be unremarkable. However, as one pulled up toward the biliary pancreatic limb, there was obviously some distortion of that and the biliary pancreatic limb was quite distended. This was not associated with any adhesions, appeared to be related to the tension on the mesentery after the patient's weight loss causing a distortion of the entrance of the biliopancreatic limb into the jejunojejunostomy. After initially examined, there were quite extensive adhesions between the omentum, small bowel, and some mesh placed in the left side of the abdomen as well as scattered adhesions and this were down to the area of the pelvis. These had been taken down with a combination of Harmonic scalpel or close to the bowel with sharp dissection. The decision was made to proceed with an additional anastomosis between the common limb and the biliary pancreatic limb, which should alleviate the partial obstruction at the additional anastomosis. The two segments of the bowel were flipped up against each other, and 2-0 Ethibond sutures were placed proximal and distal to the site of the anastomosis to help align these up. Enterotomies were then placed in each portion of the bowel and firing of the MANNY handy box loader was made. This was 60 mm firing, common openings were then closed transversely with the purple box loader and at that point, the anastomosis was inspected, some minor bleeding was controlled with electrocautery. There appeared to be no significant additional problems at this point. One additional stitch was placed distal to the anastomosis to maintain a smooth alignment through that area, this also with an Ethibond stitch. At this point, the abdomen was irrigated with a meropenem-containing saline solution. No additional problems were noted. Trocars were removed. The peritoneal cavity was deflated. The fascia at the 12 mm sites was closed with 0 Vicryl stitch and the skin with a 4-0 Vicryl skin stitch. Dressing was applied. The patient was taken to the recovery room in a satisfactory condition. Fabricio Stevens MD /[id number]
== END 2017-06-07 11:15 | disposition still patient (30) | DRG 331 ==
LOC: JP.ED 00:11 → JP.2SS 02:16
PROVIDERS: ADMIT Hospitalist; ATTEND Surgery
DX: K56.5 Intestinal adhesions [bands] with obstruction (postinfection) (principal); E78.5 Hyperlipidemia, unspecified; E03.9 Hypothyroidism, unspecified; I10 Essential (primary) hypertension; E87.6 Hypokalemia; Z79.899 Other long term (current) drug therapy; Z98.84 Bariatric surgery status; Z88.8 Allergy status to other drugs, medicaments and biological substances; Z88.5 Allergy status to narcotic agent; Z87.891 Personal history of nicotine dependence; K59.09 Other constipation; Z96.659 Presence of unspecified artificial knee joint; R85.0 Abnormal level of enzymes in specimens from digestive organs and abdominal cavity
CPT/HCPCS: 36415; 74020; 74020-26; 74177; 74240; 74240-26; 80048; 80053; 81001; 82150; 83690; 83735; 84100; 84484; 85025; 85027; 87493; 94762; 96361; 96374; 97110-GP; 97161-GP; 99285-25; A9270-GY; C9113; J0694; J1100; J1200; J2060; J2175; J2185; J2405; J2704; J3010; J3410; J3475; J3480; J3490; J7030; J7040; J7042; J7050; J7120; Q9967

== ENCOUNTER 2017-06-22 00:11 | Emergency (ER) | payer OTHER ==
[2017-06-22] MEDS ORDERED: Ondansetron 4 MG/2 ML SDV IVPUSH ONE (00:47)
[2017-06-22] MEDS ORDERED: Lactated Ringers 1,000 ML IV SCH (01:00)
--- NOTE | 2017-06-22 02:40 | EDM.PDOC ---
ED HPI GENERAL MEDICAL PROBLEM - General Chief Complaint: Gastrointestinal Problem Stated Complaint: VOMITING/POST SURGERY Time Seen by Provider: 06/22/17 00:41 Source of Information: Reports: Patient History Limitations: Reports: No Limitations - History of Present Illness INITIAL COMMENTS - FREE TEXT/NARRATIVE: History of present illness: [46-year-old female presenting with a history of having had surgery [address] Stevens. I believe she had a hernia repair and some adhesion takedown. She now presents with nausea and vomiting since 4 PM this afternoon. She was out at [place] with her children and they stopped and had some ice cream and then she developed some nausea and vomiting after this. She's vomited several times and just can't seem to stop vomiting and so presents the ER for treatment for this. She is really not having any abdominal pain with this. No fever or chills. ] Review of systems: As per history of present illness and below otherwise all systems reviewed and negative. Past medical history: As per history of present illness and as reviewed below otherwise noncontributory. Surgical history: As per history of present illness and as reviewed below otherwise noncontributory. Social history: No reported history of drug or alcohol abuse. Family history: As per history of present illness and as reviewed below otherwise noncontributory. Physical exam: HEENT: Atraumatic, normocephalic, pupils reactive, negative for conjunctival pallor or scleral icterus, mucous membranes moist, throat clear, neck supple, nontender, trachea midline. Lungs: Clear to auscultation, breath sounds equal bilaterally, chest nontender. Heart: S1S2, regular, negative for clicks, rubs, or JVD. Abdomen: Soft, nondistended, nontender. Negative for masses or hepatosplenomegaly. Negative for costovertebral tenderness. Pelvis: Stable nontender. Genitourinary: Deferred. Rectal: Deferred. Extremities: Atraumatic, negative for cords or calf pain. Neurovascular unremarkable. Neuro: Awake, alert, oriented. Cranial nerves II through XII unremarkable. Cerebellum unremarkable. Motor and sensory unremarkable throughout. Exam nonfocal. Diagnostics: [CBC complete metabolic panel and UA were done. None of the results were concerning. Flat and upright of the abdomen were obtained and no free air or evidence for bowel obstruction were seen.] Therapeutics: [She received IV fluids and IV Zofran while here and her stomach seemed to settle down and she felt that she can go home and get some sleep.] Impression: [Nausea and vomiting] Plan: [She will follow-up with Dr. Stevens that this problem persists.] Definitive disposition and diagnosis as appropriate pending reevaluation and review of above. - Related Data Allergies Allergy/AdvReac Type Severity Reaction Status Date / Time hydromorphone [From Dilaudid] AdvReac Nausea Verified 06/04/17 07:33 oxycodone AdvReac Nausea and Verified 06/04/17 07:33 Vomiting Home Meds: Home Meds Levonorgestrel-Ethin Estradiol [Orsythia-28 Tablet] 1 tab PO DAILY 09/09/13 [ History] Valsartan/Hydrochlorothiazide [Valsartan-Hctz 80-12.5 mg Tab] 1 tab PO DAILY [History] Ca Citrate/Mgox/Vit D3/B6/Min [Calcium Citrate Plus Tablet] 1,200 mg PO DAILY [History] Fluticasone Propionate [Flonase] 2 spray NASBOTH DAILY PRN 04/03/14 [History] Omeprazole 20 mg PO BIDAC 04/03/14 [History] Topiramate [Topamax] 50 mg PO DAILY 04/03/14 [History] Multivitamin/Iron/Folic Acid [Multi-Day Plus Iron Tablet] 1 tab PO BID 10/24/14 [History] Dicyclomine [Bentyl] 10 mg PO QIDACANDBED PRN 09/23/16 [History] Metoclopramide HCl [Reglan] 10 mg PO Q6H PRN 09/23/16 [History] Ondansetron [Zofran ODT] 4 mg PO Q4H PRN 09/23/16 [History] Oxybutynin Chloride [Ditropan Xl] 5 mg PO DAILY 09/23/16 [History] Pantoprazole Sodium [Protonix] 40 mg PO BID 09/23/16 [History] Cyanocobalamin (Vitamin B-12) [Vitamin B-12] 1,000 mcg SL DAILY 04/27/17 [ History] Gabapentin [Neurontin] 300 mg PO BID 04/27/17 [History] Potassium Chloride [Klor-Con M10] 10 meq PO BID 04/27/17 [History] Thiamine [Vitamin B-1] 100 mg PO DAILY 04/27/17 [History] Past Medical History 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: Reports: Hypertension Gastrointestinal History: Reports: Bowel Obstruction, Pancreatitis Genitourinary History: Reports: Other (See Below) 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 OB/BYN History: has 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 Neurological History: Reports: Migraines Hematologic History: Reports: Anemia, B12 Deficiency, Iron Deficiency, Other ( See Below) Other Hematologic History: potassium defeciency - Infectious Disease History Infectious Disease History: Reports: Chicken Pox - Past Surgical History HEENT Surgical History: Reports: Tonsillectomy GI Surgical History: Reports: Appendectomy, Bariatric Procedure, Cholecystectomy , EGD, Hernia Repair/Other, Small Bowel Female Surgical History: Reports: Section Endocrine Surgical History: Reports: Other (See Below) Other Endocrine Surgeries/Procedures: partial thyroidectomy Musculoskeletal Surgical History: Reports: Knee Replacement, Shoulder Surgery Social & Family History - Family History Family Medical History: Noncontributory - Tobacco Use Smoking Status *Q: Never Smoker Years of Tobacco use: 10 Used Tobacco, but Quit: Yes Month Tobacco Last Used: Dec 1995 Second Hand Smoke Exposure: No - Caffeine Use Caffeine Use: Reports: Soda - Alcohol Use Days Per Week of Alcohol Use: 0 Number of Drinks Per Day: 1 Total Drinks Per Week: 0 - Recreational Drug Use Recreational Drug Use: No - Living Situation & Occupation Living situation: Reports: (lives in [place], [place]. with , 10 children in ages 21 yr to 5 yrs. (10 adopted)) ED ROS GENERAL - Review of Systems Review Of Systems: ROS reveals no pertinent complaints other than HPI. ED EXAM, GI/ABD - Physical Exam Exam: See Below Course - Vital Signs Last Recorded V/S: Last Vital Signs Temp 36.4 C 06/22/17 00:28 Pulse 75 06/22/17 00:28 Resp 18 06/22/17 00:28 BP 124/79 06/22/17 00:28 Pulse Ox 96 06/22/17 00:28 - Orders/Labs/Meds Orders: Active Orders 24 hr Category Date Time Status Abdomen 2V AP Flat Upright [CR] Stat Exams 06/22/17 00:47 Taken Lactated Ringers [Ringers, Lactated] 1,000 ml Med 06/22/17 01:00 Active IV ASDIRECTED Medication Orders Lactated Ringer's (Ringers, Lactated) 1,000 mls @ 999 mls/hr IV ASDIRECTED JOSE CRUZ Last Admin: 06/22/17 01:08 Dose: 999 mls/hr Labs: Laboratory Tests 06/22/17 06/22/17 06/22/17 Range/Units 00:58 00:58 01:50 WBC 12.9 H (4.5-11.0) K/uL RBC 3.90 (3.30-5.50) M/uL Hgb 12.0 (12.0-15.0) g/dL Hct 35.9 L (36.0-48.0) % MCV 92 (80-98) fL MCH 31 (27-31) pg MCHC 33 (32-36) % Plt Count 367 (150-400) K/uL Neut % (Auto) 63 (36-66) % Lymph % (Auto) 24 (24-44) % [place] % (Auto) 6 (2-6) % Eos % (Auto) 6 H (2-4) % Baso % (Auto) 1 (0-1) % Sodium 140 (140-148) mmol/L Potassium 3.9 (3.6-5.2) mmol/L Chloride 106 (100-108) mmol/L Carbon Dioxide 23 (21-32) mmol/L Anion Gap 10.7 (5.0-14.0) mmol/L BUN 15 D (7-18) mg/dL Creatinine 0.8 (0.6-1.0) mg/dL Est Cr Clr Drug Dosing 68.16 mL/min Estimated GFR (MDRD) > 60 (>60) Glucose 86 (74-106) mg/dL Calcium 8.4 L (8.5-10.1) mg/dL Total Bilirubin 0.4 (0.2-1.0) mg/dL AST 19 (15-37) U/L ALT 33 (12-78) U/L Alkaline Phosphatase 74 (46-116) U/L Total Protein 6.7 (6.4-8.2) g/dL Albumin 3.2 L (3.4-5.0) g/dL Globulin 3.5 (2.3-3.5) g/dL Albumin/Globulin Ratio 0.9 L (1.2-2.2) Amylase 43 (25-115) U/L Lipase 229 (73-393) U/L Urine Color Yellow Urine Appearance Clear Urine pH 5.0 (4.5-8.0) Ur Specific [place] 1.020 (1.008-1.030) Urine Protein Negative (NEGATIVE) mg/dL Urine Glucose (UA) Normal (NEGATIVE) mg/dL Urine Ketones Negative (NEGATIVE) mg/dL Urine Occult Blood Moderate (NEGATIVE) Urine Nitrite Negative (NEGATIVE) Urine Bilirubin Small (NEGATIVE) Urine Urobilinogen Normal (NORMAL) mg/dL Ur Leukocyte Esterase Negative (NEGATIVE) Urine RBC 0-5 (0-5) Urine WBC 0-5 (0-5) Ur Epithelial Cells Few Amorphous Sediment Few Urine Bacteria Few Urine Mucus Not seen Meds: Medications Generic Name Dose Route Start Last Admin Trade Name Freq PRN Reason Stop Dose Admin Lactated Ringer's 1,000 mls @ 999 mls/hr 06/22/17 01:00 06/22/17 01:08 Ringers, Lactated IV 999 mls/hr ASDIRECTED JOSE CRUZ Administration Discontinued Medications Generic Name Dose Route Start Last Admin Trade Name Freq PRN Reason Stop Dose Admin Ondansetron HCl 4 mg 06/22/17 00:47 06/22/17 01:08 Zofran IVPUSH 06/22/17 00:48 4 mg ONETIME ONE Administration Departure - Departure Time of Disposition: 02:40 Disposition: Home, Self-Care 01 Condition: Good Clinical Impression: Nausea and vomiting Qualifiers: Vomiting type: unspecified Vomiting Intractability: non-intractable Qualified Code(s): R11.2 - Nausea with vomiting, unspecified - Discharge Information Forms: ED Department Discharge - My Orders Last 24 Hours: My Active Orders 06/22/17 00:47 Abdomen 2V AP Flat Upright [CR] Stat 06/22/17 01:00 Lactated Ringers [Ringers, Lactated] 1,000 ml IV ASDIRECTED - Assessment/Plan Last 24 Hours: My Active Orders 06/22/17 00:47 Abdomen 2V AP Flat Upright [CR] Stat 06/22/17 01:00 Lactated Ringers [Ringers, Lactated] 1,000 ml IV ASDIRECTED
[2017-06-22 02:53] VITALS: BP 114/70
--- NOTE | 2017-06-22 11:17 | CR ---
Mild prominent small bowel loop left upper quadrant. This is nonspecific. Early obstruction cannot b e excluded. There is less gaseous distention compared to 06/07/2017 examination. Moderate fecal resid ual. Nonspecific bowel gas pattern.
== END 2017-06-22 02:52 | disposition home or self-care (01) ==
LOC: JP.ED 00:11
DX: R11.2 Nausea with vomiting, unspecified (principal); I10 Essential (primary) hypertension; G43.909 Migraine, unspecified, not intractable, without status migrainosus; D64.9 Anemia, unspecified; Z90.49 Acquired absence of other specified parts of digestive tract; Z98.890 Other specified postprocedural states; Z96.659 Presence of unspecified artificial knee joint; Z98.84 Bariatric surgery status; Z79.899 Other long term (current) drug therapy; Z88.6 Allergy status to analgesic agent
CPT/HCPCS: 36415; 74020; 80053; 81001; 82150; 83690; 85025; 96361; 96374; 99284; J2405; J7120

== ENCOUNTER 2019-02-08 06:25 | Day surgery (SDC) | payer OTHER ==
[2019-02-08] MEDS ORDERED: Acetaminophen 500 MG Tab PO ONE (06:45)
[2019-02-08] MEDS ORDERED: Gabapentin 300 MG Cap PO ONE (06:45)
[2019-02-08] MEDS: Dextrose 5%-Lactated Ringers 1,000 ML IV SCH ×2 (06:55→17:26)
[2019-02-08] MEDS ORDERED: Succinylcholine 200 MG/10 ML MDV ONE (07:12)
[2019-02-08] MEDS ORDERED: Propofol 200 MG/20 ML SDV ONE (07:12)
[2019-02-08] MEDS ORDERED: Rocuronium 50 MG/5 ML Vial ONE (07:12)
[2019-02-08] MEDS ORDERED: fentaNYL 250 MCG/5 ML SDV ONE (07:12)
[2019-02-08] MEDS ORDERED: Dexamethasone 4 MG/ML SDV ONE (07:12)
[2019-02-08] MEDS ORDERED: Neostigmine Methylsulfate 1 MG/ML 5 ML Syringe ONE (07:12)
[2019-02-08] MEDS ORDERED: Ondansetron 4 MG/2 ML SDV ONE (07:12)
[2019-02-08] MEDS ORDERED: Glycopyrrolate 0.2 MG/ML 5 ML MDV ONE (07:12)
[2019-02-08] MEDS ORDERED: Midazolam 1 MG/ML 2 ML SDV ONE (07:12)
[2019-02-08] MEDS ORDERED: Naloxone 0.4 MG/ML SDV IVPUSH PRN (07:46)
[2019-02-08] MEDS ORDERED: Albuterol/Ipratropium 3.0-0.5 MG/3 ML Neb Soln NEB ONE (08:00)
[2019-02-08] MEDS ORDERED: ceFAZolin 2 GM in Premix Bag 1 BAG IV ONE (08:15)
[2019-02-08] MEDS ORDERED: Lactated Ringers 1,000 ML ONE (10:12)
[2019-02-08] MEDS ORDERED: fentaNYL 100 MCG/2 ML SDV IVPUSH ONE ×2 (11:07→11:17)
[2019-02-08] MEDS: fentaNYL 100 MCG/2 ML SDV ONE ×2 (11:20→13:35)
[2019-02-08] MEDS: fentaNYL/Normal Saline 600 MCG/30 ML PCA Vial IV PRN (11:26)
[2019-02-08] MEDS ORDERED: Ondansetron 4 MG/2 ML SDV IVPUSH PRN (12:40)
[2019-02-08] MEDS ORDERED: Gabapentin 300 MG Cap PO PRN (12:42)
[2019-02-08] MEDS ORDERED: Albuterol/Ipratropium 3.0-0.5 MG/3 ML Neb Soln INH PRN (12:43)
[2019-02-08] MEDS: Vitamin A 100,000 Units/2 ML SDV IM SCH (13:43)
[2019-02-08] MEDS: Acetaminophen Soln 650 MG/20.3 ML UD Cup PO SCH ×2 (14:23→21:17)
[2019-02-08] MEDS: Albuterol/Ipratropium 3.0-0.5 MG/3 ML Neb Soln INH SCH ×2 (14:50→21:17)
[2019-02-08] MEDS: ceFAZolin 2 GM in Premix Bag 1 BAG IV SCH (15:28)
[2019-02-08] MEDS: Benzonatate 100 MG Cap PO PRN (15:31)
[2019-02-08] MEDS: hydrOXYzine HCl 100 MG/2 ML SDV IM PRN ×2 (17:19→21:21)
[2019-02-09] MEDS: ceFAZolin 2 GM in Premix Bag 1 BAG IV SCH ×2 (00:59→08:16)
[2019-02-09] MEDS: Acetaminophen Soln 650 MG/20.3 ML UD Cup PO SCH ×2 (01:01→12:30)
[2019-02-09] MEDS: Benzonatate 100 MG Cap PO PRN ×2 (01:07→10:54)
[2019-02-09] MEDS: Dextrose 5%-Lactated Ringers 1,000 ML IV SCH (02:37)
[2019-02-09] MEDS: fentaNYL/Normal Saline 600 MCG/30 ML PCA Vial IV PRN (02:38)
[2019-02-09] MEDS ORDERED: Potassium Chloride 20 MEQ in Premix Bag 3 BAG IV ONE (05:55)
[2019-02-09] MEDS ORDERED: Potassium Chloride 20 MEQ in Premix Bag 1 BAG IV SCH (06:00)
[2019-02-09] MEDS: Albuterol/Ipratropium 3.0-0.5 MG/3 ML Neb Soln INH SCH ×4 (07:11→20:02)
[2019-02-09] MEDS ORDERED: Fluticasone Propionate Nasal Spray 16 GM Bottle NASBOTH PRN (08:30)
[2019-02-09] MEDS ORDERED: hydrOXYzine HCl 25 MG Tab PO PRN (08:30)
[2019-02-09] MEDS ORDERED: Topiramate 25 MG Tab PO PRN (08:30)
[2019-02-09] MEDS ORDERED: Gabapentin 300 MG Cap PO PRN (08:30)
[2019-02-09] MEDS: Potassium Chloride 20 MEQ, Lidocaine 1% 2 ML in Sodium Chloride 0.9% 100 ML IV SCH ×2 (08:35→10:44)
[2019-02-09] MEDS: Hydrochlorothiazide 12.5 MG Cap PO SCH (09:50)
[2019-02-09] MEDS: Acetaminophen/HYDROcodone 325-5 MG Tab PO PRN ×4 (09:54→23:20)
--- NOTE | 2019-02-09 09:59 | PN ---
DATE OF SERVICE: 02/09/2019 SUBJECTIVE: Bertha states her pain is controlled using the NEUROSURGEON. Vital signs have been stable. Oral intake 1440. Urine output 2600. REVIEW OF SYSTEMS: Remainder of review of systems negative for any pertinent positives and negatives. LABORATORY DATA: Potassium is 2.8, magnesium 1.8, phosphorus is 3.9, and calcium 8.5. OBJECTIVE: GENERAL: Bertha Phoenix is a 48-year-old female. VITAL SIGNS: Height is 5 feet 2.5 inches. Weight is 147 pounds. TPR 97.7, 91, 16, and blood pressure 101/54. HEENT: Negative. Voice is normal. No hoarseness noted. NECK: Supple. Neck dressing is dry and intact. HEART: Regular rate and rhythm. LUNGS: Clear. ABDOMEN: Abdominal dressing is dry and intact. 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 Date of surgery, 02/08/2019. PLAN: 1. Discontinue NEUROSURGEON. 2. [place] 5/325 mg 1 to 2 every 4 hours p.r.n. pain. 3. Regular diet. 4. Check CMP in a.m. 5. We will evaluate. Nat Xiong PA-C /[id number]
[2019-02-09] MEDS ORDERED: Zinc (Zinc Gluconate) 50 MG Tab PO SCH (11:30)
[2019-02-09] MEDS: Vitamin A 100,000 Units/2 ML SDV IM SCH (12:50)
[2019-02-09] MEDS: Ondansetron 4 MG Tab.DIS PO PRN ×2 (13:57→19:06)
[2019-02-09] MEDS: hydrOXYzine HCl 100 MG/2 ML SDV IM PRN (14:02)
[2019-02-10] MEDS: Acetaminophen/HYDROcodone 325-5 MG Tab PO PRN ×3 (03:22→12:09)
[2019-02-10] MEDS: Albuterol/Ipratropium 3.0-0.5 MG/3 ML Neb Soln INH SCH ×2 (07:10→10:36)
[2019-02-10 08:24] VITALS: BP 105/56
[2019-02-10] MEDS: Hydrochlorothiazide 12.5 MG Cap PO SCH (08:24)
--- NOTE | 2019-02-10 09:09 | DISCH ---
ADMISSION DIAGNOSES: 1. Atypical cells, bilateral thyroid, on fine-needle aspiration. 2. Fatigue. 3. Postsurgical malabsorption. 4. B12 deficiency. 5. Vitamin B complex deficiency. 6. Vitamin A deficiency. 7. Copper deficiency. 8. Chronic pancreatitis. 9. Vitamin D deficiency. 10.Hypothyroidism. 11.Hyperlipidemia. 12.Hypertension. 13.Chronic low potassium. 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 Date of surgery, 02/08/2019. Surgeon, Fabricio Stevens MD. HISTORY: Bertha Phoenix noticed some lumps in her neck. After preoperative evaluation and discussion of possible risks and possible complications, she wished to proceed with surgical procedure. HOSPITAL COURSE: Bertha had her surgery on 02/08/2019. She had no operative complications. On postoperative day #1, potassium was 2.8. This was replaced with IV potassium. Her phosphorus was 3.9 and calcium was 8.1. She was started on a regular diet and changed to oral pain medication. On postoperative day #2, potassium was 4, calcium 8.5, phosphorus 3.8, and magnesium was 1.7. The pain was managed. Oral intake adequate. Vital signs were stable. She was able to be discharged to home. PHYSICAL EXAMINATION: GENERAL: Bertha Phoenix is a 48-year-old female. VITAL SIGNS: Height is 5 feet 2.5 inches. Weight is 147 pounds. BMI is 26. TPR 97.7, 93, 18, and blood pressure 106/49. HEENT: Negative. NECK: Supple. Steri-Strips in place. Minimal swelling around incision and voice is strong. HEART: Regular rate and rhythm. LUNGS: Clear. EXTREMITIES: Without peripheral edema. DISPOSITION: Discharged to home. CONDITION: Stable and improving. FOLLOWUP: Followup appointment with Fabricio Stevens MD, at [facility] on 02/20/2019 at 9:30 a.m. To come at 9:00 a.m. for CBC, CMP, mag, and phos. Labs to be drawn. DISCHARGE MEDICATIONS: Home Medications: 1. [place] 5/325 mg 1 to 2 every 4 hours p.r.n. pain, #56. 2. Synthroid 100 mcg oral before breakfast, #60. 3. Potassium chloride 40 mEq daily, one year supply is given. To resume home medications of, 1. Proventil inhaler, use as directed. 2. Tessalon Perles 200 mg three times a day p.r.n. cough. 3. Vitamin D3 5000 international units daily. 4. Copper 4 mg oral twice daily. 5. Vitamin B12 1000 mcg IM every 30 days. 6. Flonase two sprays in each nostril. 7. Neurontin 300 mg oral twice daily. 8. Linzess 145 mcg oral daily. 9. Multivitamin one tablet twice daily. 10.Zofran 4 mg every 4 hours p.r.n. nausea. 11.Topamax 50 mg oral daily for headaches. 12.Valsartan/hydrochlorothiazide 80/12.5 mg one daily. 13.Vitamin E 400 units oral daily. 14.Zinc mg oral daily. 15.Guaifenesin 5 mL every 4 hours p.r.n. cough. 16.Vistaril 25 mg four times a day for itching. DIET: Usual diet as tolerated. Drink 8 to 10 glasses of water a day. ACTIVITY: As tolerated. No lifting over 10 pounds for 4 weeks. Avoid repetitive neck movement. Driving: Do not drive for one week and until you can turn your head without pain or stiffness and while on pain medication. Shower/bathing, may shower. DISCHARGE INSTRUCTIONS: Notify provider if any fever, increased pain, swelling, redness, drainage, nausea, or vomiting. Keep site clean and dry. Special instruction; if any tingling around mouth, take two Tums every 2 hours and call clinic at [phone] or hospital at [phone].
[2019-02-10] MEDS ORDERED: Potassium Chloride 20 MEQ Tab.ER PO ONE (10:00)
[2019-02-10] MEDS ORDERED: Vitamin A 100,000 Units/2 ML SDV IM SCH (10:00)
--- NOTE | 2019-02-18 13:30 | OR ---
DATE OF PROCEDURE: 02/08/2019 PREOPERATIVE DIAGNOSIS: Atypical cells bilaterally on fine-needle aspirations of thyroid nodules. POSTOPERATIVE DIAGNOSES: 1. Atypical cells bilaterally on fine-needle aspirations of thyroid nodules. 2. Thyroid gland diffusely fibrotic suggestive of possible lymphocytic thyroiditis (frozen section showing no evidence of malignancy). OPERATIVE PROCEDURE: Thyroid exploration with total thyroidectomy ([id number]). ANESTHESIA: General. ASSISTANTS: Nat Xiong PA-C, and KENDALL Armenta. INDICATIONS FOR PROCEDURE: This is a 48-year-old presenting with some discomfort in her right neck with associated palpable and somewhat enlarged thyroid gland at that level. Ultrasound was obtained, which showed 3 thyroid nodules, 2 on the right and 1 on the left, which met criteria for fine-needle aspiration. The fine-needle aspiration showed one of the nodule on each side showing atypical cells. Given this, the plan at this point is to proceed with a total thyroidectomy. If one side is found to be difficult initially, the other side, we might do more of a subtotal thyroidectomy to minimize chances of a long-term recurrent laryngeal nerve injury or parathyroid insufficiency. The potential risks per se including bleeding, infection, possibility of needing additional treatment such as I-131 treatment if a malignancy is identified, possible injury to the recurrent laryngeal nerve and/or parathyroid glands with the sequelae of those having been reviewed with the patient were all gone over, and the patient wishes to proceed. DETAILS OF PROCEDURE: The patient was taken to the operating room and after general endotracheal anesthesia was induced, she was placed in a supine position with the neck somewhat extended. The upper chest and neck areas were then prepped and draped. Two fingerbreadths above the sternal notch, in one of the skin creases, a transverse incision was made and carried down through the skin and subcutaneous tissue and platysmal layers. Subplatysmal flaps were then raised superiorly and inferiorly, and the midline fascia was divided. In the beginning, on the right side, the strap muscles were retracted off the thyroid tissue. Thyroid tissue was diffusely white and fibrotic in appearance. There was some adherence to the strap muscles, which appeared to be an inflammatory-type response. There was no central lymphadenopathy identified. At this point, the inferior thyroid vein was divided with a Harmonic scalpel. The upper pole was also then taken down with Harmonic scalpel. This then allowed a gradual medial mobilization of the right thyroid lobe. The branches of the inferior thyroid artery were then taken with Harmonic scalpel more or less against capsule of the thyroid as the identifiable parathyroid glands were reflected laterally dissection proceeded. At this point, the isthmus was divided at the junction of the isthmus and left lobe thyroid, and the tracheal attachments were then divided at the isthmus and right thyroid lobe up to the level of the ligament of [place], which was taken last and the right thyroid lobe and isthmus were delivered from the field for frozen section, which did not show any evidence of malignancy. The recurrent laryngeal nerve was identified as it entered the larynx and appeared to be intact for the length of the dissection. Attention was then taken to the left side. Identical dissection was then accomplished. This site was also fibrotic, but not as intensely as the right side. Once again, upon removal of the left lobe, the parathyroid glands were confirmed to be intact with evidently good blood supply, and the recurrent laryngeal nerve likewise appeared to be uninjured. At this point, no bleeding or other problems were noted. Drain was not felt to be necessary. Strap muscles were approximated with a 3-0 Vicryl stitch, the platysmal layer with 4-0 Vicryl stitch, and the skin with 5-0 Vicryl subcuticular stitch. Steri-Strips were applied. The patient was taken to the recovery room in satisfactory condition. Physician corporate administrative assistant, Nat Xiong, played an essential role in assisting in this case, helping to position the patient, retract structures as needed, as well as suturing and cutting sutures when indicated. Her presence improved patient safety and decreased the operative time. Fabricio Stevens MD /[id number]
== END 2019-02-10 12:49 | disposition home or self-care (01) ==
LOC: JP.SDS 06:25 → UNDOADMIN 06:25 → JP.SDSSCHI 06:25 → EDSTATUS 08:15 → JP.MS 10:40 → JP.2SS 10:40 → JP.SDSSCHI 10:40 → JP.SDS 02-09 09:25 → JP.MS 02-09 09:25 → UNDOADMOB 02-09 09:29 → UNDODISIN 02-10 12:35 → JP.SDS 02-10 12:49 → UNDODISOB 02-10 12:49 → JP.MS 02-10 12:49
PROVIDERS: ATTEND Surgery
DX: E06.1 Subacute thyroiditis (principal); E53.9 Vitamin B deficiency, unspecified; E50.9 Vitamin A deficiency, unspecified; E53.8 Deficiency of other specified B group vitamins; E55.9 Vitamin D deficiency, unspecified; E61.0 Copper deficiency; K86.1 Other chronic pancreatitis; I10 Essential (primary) hypertension; E03.9 Hypothyroidism, unspecified; K91.2 Postsurgical malabsorption, not elsewhere classified; Z98.84 Bariatric surgery status
CPT/HCPCS: 36415; 60240; 80048; 81025; 83735; 84100; 88307; 88331; 88332; 94640; 94762; A9270; J0330; J0690; J1100; J2001; J2020; J2250; J2405; J2704; J2710; J3010; J3410; J3480; J3490; J7030; J7042; J7120; J7620-GY

== ENCOUNTER 2020-05-15 00:43 | Emergency (ER) | payer OTHER ==
[2020-05-15 00:57] VITALS: BP 126/78; PULSE 67
--- NOTE | 2020-05-15 01:30 | EDM.PDOC ---
ED HPI GENERAL MEDICAL PROBLEM - General Chief Complaint: Chest Pain Stated Complaint: CHEST PAIN Time Seen by Provider: 05/15/20 01:29 Source of Information: Reports: Patient, Family, Old Records, RN History Limitations: Reports: No Limitations - History of Present Illness INITIAL COMMENTS - FREE TEXT/NARRATIVE: 49 yo female presents with resolved chest pain. She awoke with nausea and diaphoresis. Did not vomit. Then developed substernal burning. The burning was severe and lasted for about 10 minutes. She has no hx of CAD, but does have a FHx of CAD. Has a pHx of cholecystectomy and gastric bypass and has had some of her small intestine removed. It is not unusual for her to awake and vomit most nights. She took Zofran before coming to the ER. Onset: Today, Sudden Onset Date: 05/15/20 Duration: Minutes:, Resolved Prior to Arrival Location: Reports: Chest Quality: Reports: Burning Severity: Severe Improves with: Reports: Other (time) Worsens with: Reports: Other (unknown) Context: Reports: Other (See HPI) Associated Symptoms: Reports: Chest Pain (substernal burning), Diaphoresis (transient), Nausea/Vomiting (no vomiting). 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 (see below) (Zofran ODT) chest Pain Score (Numeric/FACES): 3 - Related Data Allergies Allergy/AdvReac Type Severity Reaction Status Date / Time hydromorphone [From Dilaudid] AdvReac Itching Verified 05/15/20 01:25 oxycodone AdvReac Nausea and Verified 05/15/20 01:25 Vomiting Home Meds: Home Meds Valsartan/Hydrochlorothiazide [Valsartan-Hctz 80-12.5 mg Tab] 1 tab PO DAILY 1 [History] Fluticasone Propionate [Flonase] 2 spray NASBOTH DAILY PRN 04/03/14 [History] Topiramate [Topamax] 50 mg PO DAILY PRN 04/03/14 [History] Multivitamin/Iron/Folic Acid [Multi-Day Plus Iron Tablet] 1 tab PO DAILY 10/24/14 [History] Gabapentin [Neurontin] 300 mg PO BID PRN 04/27/17 [History] Cyanocobalamin (Vitamin B12) [Vitamin B12] 1,000 mcg IM Q30D 09/30/18 [History] Albuterol [Proventil Neb Soln] 3 ml INH Q6HR PRN 01/18/19 [History] Benzonatate [Tessalon Perle] 200 mg PO TID PRN 01/18/19 [History] Linaclotide [Linzess] 145 mcg PO DAILY 01/18/19 [History] Zinc Amino Acid Chelate [Zinc] 50 mg PO DAILY 01/18/19 [History] Cholecalciferol (Vitamin D3) [Vitamin D3] 5,000 unit PO DAILY 02/06/19 [History] Ondansetron [Zofran ODT] 4 mg PO Q4H PRN 02/06/19 [History] guaiFENesin 5 ml PO Q4H PRN 02/06/19 [History] hydrOXYzine pamoate [Vistaril] 25 mg PO QID PRN 02/06/19 [History] Acetaminophen/HYDROcodone [[place] 325-5 MG] 1 - 2 tab PO Q6H PRN #40 tab 02/10/19 [Rx] Levothyroxine Sodium [Synthroid] 88 mcg PO ACBREAKFAST 05/15/20 [History] estradioL [Estradiol] 1 mg PO DAILY 05/15/20 [History] Past Medical History HEENT History: Reports: Other (See Below) Other HEENT History: seasonal allergies 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: Reports: Hypertension Gastrointestinal History: Reports: Bowel Obstruction, Pancreatitis Genitourinary History: Reports: Other (See Below) 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: has 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 Neurological History: Reports: Migraines Endocrine/Metabolic History: Reports: Other (See Below) Other Endocrine/Metabolic History: thyroidectomy Hematologic History: Reports: Anemia, B12 Deficiency, Iron Deficiency, Other (See Below) Other Hematologic History: potassium defeciency - Infectious Disease History Infectious Disease History: Reports: Chicken Pox - Past Surgical History HEENT Surgical History: Reports: Adenoidectomy, LASIK, Tonsillectomy GI Surgical History: Reports: Appendectomy, Bariatric Procedure, Cholecystectomy, EGD, Hernia Repair/Other, Small Bowel Female Surgical History: Reports: Breast Biopsy, Section, Tubal Ligation Endocrine Surgical History: Reports: Thyroid Biopsy Musculoskeletal Surgical History: Reports: Shoulder Surgery, Other (See Below) Other Musculoskeletal Surgeries/Procedures:: knee reconstruction Social & Family History - Family History Family Medical History: Noncontributory - Caffeine Use Caffeine Use: Reports: Soda - Living Situation & Occupation Living situation: Reports: (lives in [place], [place]. with , 10 children in ages 21 yr to 5 yrs. (10 adopted)) ED ROS GENERAL - Review of Systems Review Of Systems: See Below Constitutional: Reports: No Symptoms HEENT: Reports: No Symptoms Respiratory: Reports: No Symptoms 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: Reports: Chest Pain GI/Abdominal: Reports: Nausea. Denies: Vomiting : Reports: No Symptoms Musculoskeletal: Reports: No Symptoms Skin: Reports: No Symptoms Neurological: Reports: No Symptoms ED EXAM, GENERAL - Physical Exam Exam: See Below Exam Limited By: No Limitations General Appearance: Alert, WD/WN, No Apparent Distress Eye Exam: Bilateral Eye: Normal Inspection Ears: Normal External Exam, Normal Canal, Hearing Grossly Normal, Normal TMs Ear Exam: Bilateral Ear: Auricle Normal, Canal Normal, TM normal Nose: Normal Inspection, No Blood Throat/Mouth: Normal Inspection, Normal Lips, Normal Oropharynx, Normal Voice, No Airway Compromise Head: Atraumatic, Normocephalic Neck: Normal Inspection Respiratory/Chest: No Respiratory Distress, Lungs Clear, Normal Breath Sounds, No Accessory Muscle Use 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: Regular Rate, Rhythm, No Edema GI/Abdominal: Normal Bowel Sounds, Soft, Non-Tender, No Distention Back Exam: Normal Inspection. No: CVA Tenderness (R), CVA Tenderness (L) Extremities: Normal Inspection, Normal Range of Motion, Non-Tender, No Pedal Edema Neurological: Alert, Oriented, CN II-XII Intact, Normal Cognition, No Motor/Sensory Deficits Psychiatric: Normal Affect, Normal Mood Skin Exam: Warm, Dry, Intact, Normal Color, No Rash EKG INTERPRETATION EKG Date: 05/15/20 Time: 01:00 Rhythm: NSR Rate (Beats/Min): 65 [place]: Normal P-Wave: Present QRS: Normal ST-T: Normal QT: Normal Comparison: NA - No Prior EKG Course - Vital Signs Last Recorded V/S: Last Vital Signs Temp 37.1 C 05/15/20 01:32 Pulse 67 05/15/20 01:32 Resp 16 05/15/20 01:32 BP 126/78 05/15/20 01:32 Pulse Ox 97 05/15/20 01:32 - Orders/Labs/Meds Orders: Active Orders 24 hr Category Date Time Status Cardiac Monitoring [RC] .As Directed Care 05/15/20 00:45 Active EKG Documentation Completion [RC] ASDIRECTED Care 05/15/20 00:45 Active EKG 12 Lead [EK] Routine Ther 05/15/20 00:45 Ordered Departure - Departure Time of Disposition: 01:48 Disposition: Home, Self-Care 01 Condition: Good Clinical Impression: Esophageal pain Referrals: Todd Haines MD [Primary Care Provider] - Forms: ED Department Discharge Additional Instructions: Try Gaviscon 30 ml at bedtime and as needed for symptoms. Return if worse. See your provider for recheck. Sepsis Event Note (ED) - Focused Exam Vital Signs: Vital Signs Temp Pulse Resp BP Pulse Ox 05/15/20 01:32 37.1 C 67 16 126/78 97 05/15/20 00:56 37.1 C 67 16 126/78 97 - My Orders Last 24 Hours: My Active Orders 05/15/20 00:45 Cardiac Monitoring [RC] .As Directed EKG Documentation Completion [RC] ASDIRECTED EKG 12 Lead [EK] Routine - Assessment/Plan Last 24 Hours: My Active Orders 05/15/20 00:45 Cardiac Monitoring [RC] .As Directed EKG Documentation Completion [RC] ASDIRECTED EKG 12 Lead [EK] Routine
== END 2020-05-15 02:03 | disposition home or self-care (01) ==
LOC: JP.ED 00:43
DX: K22.8 Other specified diseases of esophagus (principal); I10 Essential (primary) hypertension; Z88.5 Allergy status to narcotic agent; Z79.899 Other long term (current) drug therapy
CPT/HCPCS: 93005; 99284-25

== ENCOUNTER 2020-05-27 19:54 | Inpatient (IN) | payer OTHER ==
--- NOTE | 2020-05-27 20:49 | EDM.PDOC ---
ED HPI GENERAL MEDICAL PROBLEM - General Chief Complaint: Abdominal Pain Stated Complaint: STOMACH/BACK PAIN Time Seen by Provider: 05/27/20 20:30 Source of Information: Reports: Patient, Family History Limitations: Reports: No Limitations - History of Present Illness INITIAL COMMENTS - FREE TEXT/NARRATIVE: 49-year-old female with worsening abdominal discomfort, back pain, increased nausea and vomiting over the past 2 weeks. She was seen a week ago and started on Prilosec, it seems to be worsening. She has chronic emesis in the evening, however over the past 2 weeks it is gone from twice daily to every time she tries to eat something. Pain is in her back mostly, and often in the lower abdomen. She does not feel distended, she has no urinary symptoms, she has no fever or chills. She was seen again yesterday and had a significant number of labs, white count was normal, amylase and lipase were normal and electrolytes were normal. Today every time she tried to eat something however she had emesis and was having increased back pain so came in. Onset: Gradual Duration: Week(s): (Gradually worsening over the past 2 to 3 weeks) Associated Symptoms: Reports: Nausea/Vomiting, Other (Back pain is persistent and slowly worsening.) Abdomen Pain Score (Numeric/FACES): 6 - Related Data Allergies Allergy/AdvReac Type Severity Reaction Status Date / Time hydromorphone [From Dilaudid] AdvReac Itching Verified 05/27/20 20:11 oxycodone AdvReac Nausea and Verified 05/27/20 20:11 Vomiting Home Meds: Home Meds Valsartan/Hydrochlorothiazide [Valsartan-Hctz 80-12.5 mg Tab] 1 tab PO DAILY 09/09/13 [History] Fluticasone Propionate [Flonase] 2 spray NASBOTH DAILY PRN 04/03/14 [History] Topiramate [Topamax] 50 mg PO DAILY PRN 04/03/14 [History] Multivitamin/Iron/Folic Acid [Multi-Day Plus Iron Tablet] 1 tab PO DAILY 10/24/14 [History] Gabapentin [Neurontin] 300 mg PO BID PRN 04/27/17 [History] Cyanocobalamin (Vitamin B12) [Vitamin B12] 1,000 mcg IM Q30D 09/30/18 [History] Albuterol [Proventil Neb Soln] 3 ml INH Q6HR PRN 01/18/19 [History] Benzonatate [Tessalon Perle] 200 mg PO TID PRN 01/18/19 [History] Linaclotide [Linzess] 145 mcg PO DAILY 01/18/19 [History] Zinc Amino Acid Chelate [Zinc] 50 mg PO DAILY 01/18/19 [History] Cholecalciferol (Vitamin D3) [Vitamin D3] 5,000 unit PO DAILY 02/06/19 [History] Ondansetron [Zofran ODT] 4 mg PO Q4H PRN 02/06/19 [History] guaiFENesin 5 ml PO Q4H PRN 02/06/19 [History] hydrOXYzine pamoate [Vistaril] 25 mg PO QID PRN 02/06/19 [History] Levothyroxine Sodium [Synthroid] 88 mcg PO ACBREAKFAST 05/15/20 [History] estradioL [Estradiol] 1 mg PO DAILY 05/15/20 [History] Past Medical History HEENT History: Reports: Other (See Below) Other HEENT History: seasonal allergies 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: Reports: Hypertension Gastrointestinal History: Reports: Bowel Obstruction, Pancreatitis Genitourinary History: Reports: Other (See Below) 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 Neurological History: Reports: Migraines Endocrine/Metabolic History: Reports: Other (See Below) Other Endocrine/Metabolic History: thyroidectomy Hematologic History: Reports: Anemia, B12 Deficiency, Iron Deficiency, Other (See Below) Other Hematologic History: potassium defeciency - Infectious Disease History Infectious Disease History: Reports: Chicken Pox - Past Surgical History HEENT Surgical History: Reports: Adenoidectomy, LASIK, Tonsillectomy GI Surgical History: Reports: Appendectomy, Bariatric Procedure, Cholecystectomy, Colonoscopy, EGD, Hernia Repair/Other, Small Bowel Female Surgical History: Reports: Breast Biopsy, Section, Tubal Ligation Endocrine Surgical History: Reports: Thyroid Biopsy Musculoskeletal Surgical History: Reports: Shoulder Surgery, Other (See Below) Other Musculoskeletal Surgeries/Procedures:: L knee reconstruction Social & Family History - Family History Family Medical History: Noncontributory - Tobacco Use Smoking Status *Q: Former Smoker Used Tobacco, but Quit: Yes Month/Year Tobacco Last Used: 1995 - Caffeine Use Caffeine Use: Reports: Soda Other Caffeine Use: diet pepsi - Recreational Drug Use Recreational Drug Use: No - Living Situation & Occupation Living situation: Reports: (lives in [place], [place]. with , 10 children in ages 21 yr to 5 yrs. (10 adopted)) ED ROS GENERAL - Review of Systems Review Of Systems: See Below Constitutional: Reports: Malaise. Denies: Fever, Chills Respiratory: Denies: Shortness of Breath 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: Reports: Chest Pain (Patient is been having episodes of burning chest pain for the past 2 weeks, it is not responding to an acid therapy) GI/Abdominal: Reports: Abdominal Pain, Nausea, Vomiting Musculoskeletal: Reports: Back Pain Skin: Reports: No Symptoms Neurological: Reports: No Symptoms ED EXAM, GI/ABD - Physical Exam Exam: See Below Exam Limited By: No Limitations General Appearance: Alert, WD/WN, No Apparent Distress, Other (Patient is fairly comfortable at this time) Eyes: Bilateral: Normal Appearance (No jaundice, hydration is normal) Throat/Mouth: Normal Inspection Head: Atraumatic Respiratory/Chest: No Respiratory Distress 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: Regular Rate, Rhythm. No: Tachycardia Extremities: Normal Inspection. No: No Pedal Edema Neurological: Alert, Oriented Psychiatric: Normal Affect, Normal Mood Skin Exam: Warm, Dry Course - Vital Signs Last Recorded V/S: Last Vital Signs Temp 100.2 F 05/28/20 01:00 Pulse 89 05/27/20 23:36 Resp 16 05/27/20 23:36 BP 109/64 05/27/20 23:36 Pulse Ox 98 05/27/20 23:36 - Orders/Labs/Meds Orders: Active Orders 24 hr Category Date Time Status Iopamidol [Isovue-300 (61%)] Med 05/27/20 21:00 Active 100 ml IV . DIRECTED Sodium Chloride 0.9% [Normal Saline] 1,000 ml Med 05/27/20 21:00 Active IV ASDIRECTED Sodium Chloride 0.9% [Normal Saline] 80 ml Med 05/27/20 21:00 Active IV ASDIRECTED Sodium Chloride 0.9% [Saline Flush] Med 05/27/20 20:51 Active 10 ml FLUSH ASDIRECTED PRN Medication Orders Sodium Chloride (Normal Saline) 80 mls @ 3 mls/sec IV ASDIRECTED JOSE CRUZ Last Admin: 05/27/20 21:07 Dose: 3 mls/sec Documented by: NICHOL Sodium Chloride (Normal Saline) 1,000 mls @ 1,000 mls/hr IV ASDIRECTED [facility] Last Admin: 05/27/20 21:12 Dose: 1,000 mls/hr Documented by: RAIZA Dextrose/Lactated Ringer's (Dextrose 5%-Lactated Ringers) 1,000 mls @ 150 mls/hr IV ASDIRECTED [facility] Last Admin: 05/27/20 23:45 Dose: 150 mls/hr Documented by: SONDRA Acetaminophen 1,000 mg/ Premix 100 mls @ 400 mls/hr IV Q6H PRN PRN Reason: Fever Stop: 05/28/20 23:44 Last Admin: 05/28/20 00:17 Dose: 400 mls/hr Documented by: SONDRA Iopamidol (Isovue-300 (61%)) 100 ml IV . DIRECTED [facility] Last Admin: 05/27/20 21:17 Dose: 100 ml Documented by: NICHOL Morphine Sulfate (Morphine) 2 mg IVPUSH Q2H PRN PRN Reason: Pain Last Admin: 05/27/20 23:57 Dose: 2 mg Documented by: SONDRA Ondansetron HCl (Zofran) 4 mg IVPUSH Q4H PRN PRN Reason: Nausea/Vomiting Last Admin: 05/28/20 00:12 Dose: 4 mg Documented by: SONDRA Pantoprazole Sodium (Protonix Iv) 40 mg IVPUSH DAILY [facility] Last Admin: 05/27/20 23:53 Dose: 40 mg Documented by: SONDRA Sodium Chloride (Saline Flush) 10 ml FLUSH ASDIRECTED PRN PRN Reason: Keep Vein Open Last Admin: 05/27/20 21:07 Dose: 10 ml Documented by: NICHOL Meds: Medications Generic Name Dose Route Start Last Admin Trade Name Freq PRN Reason Stop Dose Admin Sodium Chloride 80 mls @ 3 mls/sec 05/27/20 21:00 05/27/20 21:07 Normal Saline IV 3 mls/sec ASDIRECTED [facility] Administration Sodium Chloride 1,000 mls @ 1,000 mls/hr 05/27/20 21:00 05/27/20 21:12 Normal Saline IV 1,000 mls/hr ASDIRECTED JOSE CRUZ Administration Dextrose/Lactated Ringer's 1,000 mls @ 150 mls/hr 05/27/20 23:15 05/27/20 23:45 Dextrose 5%-Lactated Ringers IV 150 mls/hr ASDIRECTED JOSE CRUZ Administration Acetaminophen 1,000 mg/ Premix 100 mls @ 400 mls/hr 05/27/20 23:43 05/28/20 00:17 IV 05/28/20 23:44 400 mls/hr Q6H PRN Administration Fever Iopamidol 100 ml 05/27/20 21:00 05/27/20 21:17 Isovue-300 (61%) IV 100 ml . DIRECTED JOSE CRUZ Administration Morphine Sulfate 2 mg 05/27/20 23:14 05/27/20 23:57 Morphine IVPUSH 2 mg Q2H PRN Administration Pain Ondansetron HCl 4 mg 05/27/20 23:14 05/28/20 00:12 Zofran IVPUSH 4 mg Q4H PRN Administration Nausea/Vomiting Pantoprazole Sodium 40 mg 05/27/20 23:15 05/27/20 23:53 Protonix Iv IVPUSH 40 mg DAILY JOSE CRUZ Administration Sodium Chloride 10 ml 05/27/20 20:51 05/27/20 21:07 Saline Flush FLUSH 10 ml ASDIRECTED PRN Administration Keep Vein Open - Re-Assessments/Exams Free Text/Narrative Re-Assessment/Exam: 05/27/20 22:50 GI tract: Post gastric bypass changes again seen. A focally dilated left abdominal small bowel segment at the small bowel anastomosis. Borderline dilated fluid and gas-filled left abdominal and pelvic small bowel segments more distally without a discrete transition point seen, and mild dilatation extends to the terminal ileum. The appendix is not seen with possible post appendectomy changes. No significant pericolonic changes. Stool throughout the colon. IMPRESSION: Borderline dilated fluid and gas-filled left abdominal small bowel segments without a discrete transition point, which could represent enteritis, ileus or partial obstruction. 05/27/20 22:[address] findings were reported to Nat Xiong, surgery department and agreements were made to admit the patient for surgical consultation tomorrow. Patient was agreeable with the plan. Departure - Departure Time of Disposition: 23:38 Disposition: Admitted As Inpatient 65 Clinical Impression: Small bowel obstruction - Discharge Information Sepsis Event Note (ED) - Evaluation Sepsis Screening Result: No Definite Risk - Focused Exam Vital Signs: Vital Signs Temp Pulse Resp BP Pulse Ox 05/27/20 22:12 79 136/70 05/27/20 21:32 92 126/62 99 05/27/20 20:20 98.3 F 86 16 122/79 91 L 05/27/20 20:08 98.3 F 86 16 122/79 91 L - My Orders Last 24 Hours: My Active Orders 05/27/20 20:51 Sodium Chloride 0.9% [Saline Flush] 10 ml FLUSH ASDIRECTED PRN 05/27/20 21:00 Iopamidol [Isovue-300 (61%)] 100 ml IV . DIRECTED Sodium Chloride 0.9% [Normal Saline] 1,000 ml IV ASDIRECTED Sodium Chloride 0.9% [Normal Saline] 80 ml IV ASDIRECTED - Assessment/Plan Last 24 Hours: My Active Orders 05/27/20 20:51 Sodium Chloride 0.9% [Saline Flush] 10 ml FLUSH ASDIRECTED PRN 05/27/20 21:00 Iopamidol [Isovue-300 (61%)] 100 ml IV . DIRECTED Sodium Chloride 0.9% [Normal Saline] 1,000 ml IV ASDIRECTED Sodium Chloride 0.9% [Normal Saline] 80 ml IV ASDIRECTED
[2020-05-27] MEDS ORDERED: Sodium Chloride 0.9% 10 ML Syringe FLUSH PRN (20:51)
[2020-05-27] MEDS ORDERED: Iopamidol 612 MG/ML 100 ML Bottle IV SCH (21:00)
[2020-05-27] MEDS ORDERED: Sodium Chloride 0.9% 1,000 ML IV SCH (21:00)
[2020-05-27] MEDS: Sodium Chloride 0.9% 80 ML IV SCH (21:07)
--- NOTE | 2020-05-27 22:35 | CRLCT ---
INDICATION: Abdominal pain. Nausea and vomiting. TECHNIQUE: CT abdomen and pelvis acquired with IV contrast. 100 mL of Isovue-300 administered. COMPARISON: 09/30/2018 FINDINGS: Lower chest: Unremarkable. Liver: Focal fatty infiltration in the anterior aspect of the medial segment of the left hepatic lobe. Spleen: Unremarkable. Pancreas: Unremarkable. Gallbladder and bile ducts: Cholecystectomy. Adrenal glands: Unremarkable. Kidneys: Unremarkable. GI tract: Post gastric bypass changes again seen. A focally dilated left abdominal small bowel segment at the small bowel anastomosis. Borderline dilated fluid and gas-filled left abdominal and pelvic small bowel segments more distally without a discrete transition point seen, and mild dilatation extends to the terminal ileum. The appendix is not seen with possible post appendectomy changes. No significant pericolonic changes. Stool throughout the colon. Vascular structures: Mild atherosclerotic changes. Lymph nodes: No abnormally enlarged lymph nodes. Miscellaneous: No significant free fluid or free air. Pelvic Organs: Hysterectomy. No discrete bladder abnormality seen. Bones: Unremarkable for age. IMPRESSION: Borderline dilated fluid and gas-filled left abdominal small bowel segments without a discrete transition point, which could represent enteritis, ileus or partial obstruction. Dictated by Dirk Doherty MD @ 05/27/2020 10:32:46 PM Please note that all CT scans at this facility use dose modulation, iterative reconstruction, and/or weight-based dosing when appropriate to reduce radiation dose to as low as reasonably achievable. Dictated by: Dirk Doherty MD @ 05/27/2020 22:34:03 (Electronically Signed)
[2020-05-27] MEDS ORDERED: Pantoprazole 40 MG Vial IVPUSH SCH (23:15)
[2020-05-27] MEDS: Dextrose 5%-Lactated Ringers 1,000 ML IV SCH (23:45)
[2020-05-27] MEDS: Morphine 2 MG/ML SYRINGE IVPUSH PRN (23:57)
[2020-05-28] MEDS: Ondansetron 4 MG/2 ML SDV IVPUSH PRN ×5 (00:12→20:35)
[2020-05-28] MEDS: Acetaminophen 1,000 MG in Premix Bag 1 BAG IV PRN ×3 (00:17→20:44)
[2020-05-28] MEDS: Dextrose 5%-Lactated Ringers 1,000 ML IV SCH ×2 (06:10→17:06)
[2020-05-28] MEDS ORDERED: Fluticasone Propionate Nasal Spray 16 GM Bottle NASBOTH PRN (07:51)
[2020-05-28] MEDS ORDERED: Potassium Chloride 20 MEQ, Lidocaine 1% 2 ML in Sodium Chloride 0.9% 100 ML IV ONE (08:00)
[2020-05-28] MEDS: Losartan 50 MG Tab PO SCH (08:35)
[2020-05-28] MEDS: Estradiol 0.5 MG Tab PO SCH (08:35)
[2020-05-28] MEDS: Hydrochlorothiazide 12.5 MG Cap PO SCH (08:35)
[2020-05-28] MEDS: Morphine 2 MG/ML SYRINGE IVPUSH PRN ×4 (08:44→20:36)
[2020-05-28] MEDS ORDERED: Non-Formulary Medication 1 Each (Estradiol [Estradiol] 1 MG) PO SCH (09:00)
--- NOTE | 2020-05-28 10:27 | HP ---
HISTORY OF PRESENT ILLNESS: Bertha was admitted last evening close to midnight from the emergency room. She reports that she has had symptoms for 2 weeks. She developed mid epigastric abdominal pain that radiated to her back and also bilateral lower abdominal pain. She states it was would come and go. She did go to the clinic for the epigastric pain, thinking it was more her heart, was started on omeprazole, but that did not help. She most recently was seen by Allan Farley CNP for what she thought was a flareup of pancreatitis, which she has had before. Bertha states normally she will have one emesis after supper, and she has done that since her revision of her gastric bypass surgery, March 01, 2013, and she states that is her normal. Within the past 2 weeks, she started vomiting more frequently, and within the last couple of days, she states it is every time she eats or drinks. Bowel movements have been either watery or regular. Prior to last evening in the emergency room, she was there 2 weeks ago. EKG was normal and then seen by Allan Farley on 05/25/2020. She had blood tests to rule out pancreatitis, and these were negative. Yesterday morning, the pain became so severe, and did not let up, that she went to the emergency room. On admission to the hospital, she had a temperature max of 101.5. She was started on IV Tylenol and at 0100, temp was 100.2. Last temp was taken at 0314, and it was 97.5. Her blood cultures are pending. She reports that, this morning, pain is 2 to 3, but she has not had anything to eat. Denies any other associated signs and symptoms. Date of laparoscopic Calli-en-Y gastric bypass surgery, 02/06/2006. Consult weight 215.5. Date of revision of Clali-en-Y gastric bypass surgery, 03/01/2013. Consult weight 183. Today's weight is 142 pounds. CURRENT MEDICATIONS: Synthroid 88 mcg mg 1 tablet daily, Estrace 1 mg 1 tablet daily, Diovan HCT 80/12.5 mg 1 tablet daily, Colace 100 mg b.i.d., vitamin B12 1000 mcg injection once monthly, D3 1000 International Units daily, Robitussin liquid 5 mL by mouth every 4 hours p.r.n. cough, Tessalon 1 cap 3 times a day p.r.n. cough, Zofran ODT 4 mg every 4 hours p.r.n. nausea, Linzess 1 tablet 1 daily. Neurontin 300 mg 1 capsule 3 times a day, the patient is taking it p.r.n., Vistaril 25 mg 1 capsule by mouth 4 times a day p.r.n. itching or other pain, Albuterol Ventolin 3 mL by nebulizer every 6 hours p.r.n. wheezing or shortness of breath, multivitamin 1 tablet twice a day, calcium citrate 1200 mg 1 time daily, and Flonase 2 sprays in each nostril once daily. PAST MEDICAL HISTORY: Includes nonspecific postoperative malabsorption, status post Calli-en- Y gastric bypass surgery. History of chronic pancreatitis. Chronic nausea and vomiting one time after supper. History of hypokalemia, chronic constipation with use of Linzess. Vitamin B12 deficiency, vitamin D deficiency, bilateral acromioclavicular arthrosis, cervicalgia, osteoarthritis of knee, hyperlipidemia, and hypertension. PAST SURGICAL HISTORY: 1. 07/31/2019, laparoscopic lysis of adhesions; surgeon Wilberto Brink. 2. Appendectomy as a child. 3. Arthroscopy of left knee. 4. Breast biopsy, 04/11/2014. 5. section x2. 6. Laparoscopic cholecystectomy, 06/18/2007. 7. Closure of gastrocolic fistula, 03/01/2013. 8. D and C, 07/26/2018. 9. EGD; 03/24/2006, 09/15/2014, 04/04/2014 and 02/14/2013. 10.Endometrial ablation, 07/26/2018. 11.Hysterectomy, 07/31/2019. 12.Revision of Calli-en-Y gastric bypass surgery, 03/01/2013. 13.Colon resection, 10/27/2014. 14.Calli-en-Y gastric bypass surgery, 02/06/2006. 15.Left shoulder acromioplasty, resection distal clavicle, 04/26/2017. 16.Left shoulder acromioplasty and resection of distal clavicle on the left, 07/20/2018. 17.Reduction of volvulus and intussusception, internal hernia, 10/27/2014 with repair of internal hernia. 18.Repair of recurrent incisional hernia, 09/26/2008. 19.Right lower thyroid lobe needle aspiration, 01/29/2019. 20.Total thyroidectomy, 02/08/2019. 21.Upper GI endoscopy, 05/20/2008 and 10/18/2016. SOCIAL HISTORY: . Employment: Does not work outside of her home. Children: 2 biological children and 11 adopted children. Living Situation: Lives in [place] with , 13 children, ages 24 to 5. FAMILY HISTORY: Noncontributory. SOCIAL HISTORY: Does not smoke. Caffeine: Drinks 4 Diet Pepsi per day. Alcohol use: Rare. REVIEW OF SYSTEMS: CONSTITUTIONAL: Denies any fever, chills, night sweats, or fatigue. Was surprised she had a fever when she got into the hospital. SKIN: No rashes or changes in skin lesions. HEENT: Negative for headache, dizziness, loss of coordination. CARDIOVASCULAR: Has midepigastric abdominal pain. Denies any fast or irregular heartbeat. RESPIRATORY: No cough or shortness of breath. ENDOCRINE: No polyuria, polydipsia, skin or hair changes, heat or cold intolerance. HEMATOLOGIC: Negative. LYMPHATIC: Denies any lymph node tenderness or swelling. GASTROINTESTINAL: As above. GENITOURINARY: Negative for any UTI signs and symptoms. MUSCULOSKELETAL: No new joint pain or swelling. Has chronic joint pain. NEUROLOGIC: No history of neurological symptoms, spells, memory changes. PSYCHIATRIC: No significant anxiety, depression or panic attacks. Remainder of review of systems negative for any pertinent positives or negatives. DIET: Regular, step 4 diet. Protein varies, thinks she gets close to 65 g a day. Exercises by walking. Fluids decreased, gets about 16 ounces of water a day. Vitamins: Takes all the recommended vitamins post bariatric surgery. OBJECTIVE: GENERAL: Bertha Phoenix is a pleasant 49-year-old female. She is alert, orientated, in no acute distress. VITAL SIGNS: Height is 5 feet 3 inches. Weight is 142 pounds. TPR at 0314; 97.5, 64, 16. Blood pressure 106/63. HEENT: Negative. NECK: Supple. HEART: Regular rate and rhythm without murmur, gallop, or rub. LUNGS: Clear to auscultation in all 4 astudillo. No wheezing, rales, or rhonchi. ABDOMEN: Minimal midepigastric abdominal pain. Slight distention. Minimal tenderness below the umbilicus, right and left quadrants. EXTREMITIES: Without edema. SKIN: Without rash. NEUROLOGIC: Cranial nerves 2 through 12 intact. MUSCULOSKELETAL: Deep tendon reflexes are 2+ and equal bilaterally. PSYCHIATRIC: Mood and affect appropriate, orientated x3 and memory intact. ASSESSMENT: 1. Postprandial abdominal pain. 2. Status post Calli-en-Y gastric bypass surgery. 3. Nonspecific surgical malabsorption. 4. B12 deficiency. 5. Vitamin D deficiency. 6. Status post thyroidectomy. 7. Surgical hypothyroidism. PLAN: N.p.o. until further evaluation by Stas Ho MD, surgeon on-call. Vital signs. Hemoglobin 9.7 and compared to labs in clinic 2 days ago, hemoglobin was 10.7. Potassium is 3.5. White count 11.3. Glucose 116, amylase 23 and lipase 68. COVID virus test negative. CT scan: Impression, borderline dilated fluid and gas-filled left abdominal small bowel segments without a discrete transition point, could represent enteritis, ileus ,or partial obstruction. New orders, potassium 20 mEq IV now. Home medications were started with sips of water. Remain n.p.o. We will evaluate p.r.n. or in a.m., depending on consultation. Nat Xiong PA-C /[id number]
[2020-05-28] MEDS: Levothyroxine 88 MCG Tab PO SCH (10:45)
[2020-05-28] MEDS ORDERED: Iohexol 647 MG/ML 10 ML SDV PO SCH (11:45)
[2020-05-28] MEDS ORDERED: Iohexol 300 MG/ML 30 ML Bottle PO SCH (12:00)
[2020-05-28] MEDS ORDERED: Pantoprazole 40 MG Vial IVPUSH SCH (12:00)
[2020-05-28] MEDS ORDERED: Iopamidol 612 MG/ML 500 ML Multipack Bottle IV ONE (13:18)
[2020-05-28] MEDS ORDERED: Sodium Chloride 0.9% 10 ML Syringe FLUSH ONE (13:18)
[2020-05-28] MEDS ORDERED: Sodium Chloride 0.9% 75 ML IV SCH (13:30)
[2020-05-28] MEDS: Sodium Chloride 0.9% 80 ML IV SCH (13:37)
--- NOTE | 2020-05-28 14:11 | CT ---
Abdomen Pelvis w Cont CLINICAL HISTORY: Possible partial SBO COMPARISON: 05/27/2020. TECHNIQUE: Axial tomographic images are obtained from the dome of the diaphragm to the pubic symphysis without IV contrast enhancement. Oral contrast was used. Auto dosage reduction and iterative reconstruction techniques employed. FINDINGS: The lung bases are clear. The liver shows no mass or biliary dilatation. The gallbladder has been removed. The spleen has a normal size and shape. The pancreas shows no mass or inflammatory change. The adrenal glands appear normal bilaterally. The kidneys have a normal appearance bilaterally. The aorta has a normal caliber. There is no suspicious retroperitoneal adenopathy. There are a few scattered nonspecific lymph nodes in the mesentery. There is some counterclockwise rotation of the descending mesenteric vessels in the left lower quadrant. There is persistent gaseous distention of the colon. There is no significant small bowel distention. There is now some free fluid in the pelvis this is not obvious on prior study. Bladder has a normal contour. The appendix is not definitively identified. IMPRESSION: Persistent gaseous distention of the colon similar to prior study Decrease in small bowel distention when compared to prior study. New free fluid in the pelvis There is some counterclockwise rotation of the descending mesenteric vessels. This is not seen on the prior study.
[2020-05-28] MEDS: Acetaminophen/Caffeine 500-65 MG Tab PO PRN (16:26)
[2020-05-29] MEDS: Ondansetron 4 MG/2 ML SDV IVPUSH PRN ×2 (00:54→05:04)
[2020-05-29] MEDS: Sodium Chloride 0.9% 1,000 ML IV SCH ×2 (00:57→08:15)
[2020-05-29] MEDS: Acetaminophen/Caffeine 500-65 MG Tab PO PRN (01:07)
--- NOTE | 2020-05-29 05:16 | CRLCR ---
Indication: Follow up partial small bowel obstruction Technique: Upright view of the abdomen Comparison: CT abdomen pelvis 05/28/2020 Findings/Impression: No abnormally distended air-filled small bowel loops are appreciated. Oral contrast is seen in the ascending and transverse colon. There is persistent mild air distention of the sigmoid colon. Dictated by Jacey Calvin MD @ May 29 2020 5:12AM Signed by Dr. Jacey Calvin @ May 29 2020 5:15AM
[2020-05-29] MEDS ORDERED: Levothyroxine 100 MCG Tab PO SCH (07:30)
[2020-05-29 07:51] VITALS: BP 133/72; PULSE 57
[2020-05-29] MEDS: Levothyroxine 88 MCG Tab PO SCH (07:55)
[2020-05-29] MEDS: Estradiol 0.5 MG Tab PO SCH (08:00)
[2020-05-29] MEDS: Hydrochlorothiazide 12.5 MG Cap PO SCH (08:00)
[2020-05-29] MEDS: Losartan 50 MG Tab PO SCH (08:00)
--- NOTE | 2020-05-29 10:00 | PN ---
DATE OF SERVICE: 05/29/2020 SUBJECTIVE: Bertha reports that she continues to have abdominal pain. It is more intermittent in the mid epigastric area and in the lower abdominal quadrants, which radiates to her back. She has had a caffeine headache, normally drinks up to 4 cans of Diet Coke daily, and this has been managed with Excedrin Free (Tylenol with codeine) 2 tablets p.r.n. Had 1 emesis of 10 mL, otherwise has not been nauseated. Oral intake on a clear liquid 1200, and urine output 4600. REVIEW OF SYSTEMS: HEENT: Headache improved as above. NECK: Negative. CHEST: No chest pain, shortness of breath, fast or irregular heartbeat. LUNGS: No cough. ABDOMEN: Has had 1 emesis as stated. Continues with pain as above. Has not had a bowel movement. GENITOURINARY: Negative for UTI signs and symptoms. EXTREMITIES: Negative. NEUROLOGIC: Negative. SKIN: Negative. PSYCHIATRIC: Missing her children. Remainder of review of systems negative for any pertinent positives and negatives. OBJECTIVE: GENERAL: Bertha Phoenix is a pleasant 49-year-old female, alert and orientated. Color pale. VITAL SIGNS: TPR at 0017, 95, 49, 18, blood pressure 103/58. HEENT: Negative. NECK: Supple. HEART: Regular rate and rhythm. LUNGS: Clear. ABDOMEN: Tender with involuntary guarding in the mid epigastric area and bilateral lower quadrants and, she reports, with light palpation in the right and left lower quadrants, radiates to her lower back. SKIN: Without rash. NEUROLOGIC: Cranial nerves 2 through 12 intact. EXTREMITIES: Negative for peripheral edema. PSYCHIATRIC: Mood and affect appropriate. ASSESSMENT: 1. Postprandial abdominal pain. 2. Status post Calli-en-Y gastric bypass surgery. 3. Nonspecific surgical malabsorption. 4. B12 deficiency. 5. Vitamin D deficiency. 6. Status post thyroidectomy. 7. Surgical hypothyroidism. PLAN: The patient will be seen by Stas Ho MD, and plan will be made at that time. We will evaluate p.r.n. or in a.m. IV will be DICTATION ENDS HERE Nat Xiong PA-C /[id number]
--- NOTE | 2020-05-29 13:35 | PN ---
DATE OF SERVICE: 05/29/2020 SUBJECTIVE: The patient is doing very well. Pain is well controlled. No nausea, vomiting, shortness of breath, or chest pain. She is having bowel movements. OBJECTIVE: VITAL SIGNS: Stable. CARDIOVASCULAR: Regular rhythm and rate. RESPIRATORY: Lungs clear to auscultation bilaterally. ASSESSMENT AND PLAN: The patient is reported to be passing gas and having small bowel movements. Furthermore, the oral contrast goes into her colon past any area of concern for bowel obstruction. Therefore, we will advance the patient and consider discharge in the next 24 hours. Stas Ho MD /[id number]
--- NOTE | 2020-05-29 19:24 | DISCH ---
ADMISSION DIAGNOSES: 1. Partial small bowel obstruction. 2. Status post Calli-en-Y gastric bypass surgery. 3. Unspecified surgical malabsorption. 4. B12 deficiency. 5. Status post thyroidectomy. 6. Surgical hypothyroidism. DISCHARGE DIAGNOSES: 1. Small bowel obstruction, resolved. 2. Status post Calli-en-Y gastric bypass surgery. 3. Unspecified surgical malabsorption. 4. B12 deficiency. 5. Vitamin D deficiency. 6. Status post thyroidectomy. 7. Surgical hypothyroidism. HISTORY: Jonelle was admitted on 05/26/2020, after presenting to the emergency room with severe abdominal pain. She was worked up prior to going to the emergency room by the primary care provider and had pancreatitis ruled out. Abdominal pain persisted. She did go to the emergency room. Admission CT showed a focally dilated left abdominal small wall segment at a small bowel anastomosis, borderline dilated fluid and gas-filled left abdominal and pelvic small bowel segment more distally without a discrete transition point and mild dilation extends to the terminal ileum. HOSPITAL COURSE: Jonelle was in the hospital, treated and placed n.p.o., IV fluids. Consulted Stas Ho, Surgeon. An abdominal x-ray was obtained and revealed distended air-filled small bowel loops and oral contrast is not seen in the ascending and transverse colon. There is persistent mild air distention of the sigmoid colon. Vital signs remained stable. Oral intake on clear liquid was 1200, output 4600. Passing flatus. Abdominal pain did get better and she felt like she was able to be discharged to home. PHYSICAL EXAMINATION: GENERAL: Bertha Phoenix is a pleasant 49-year-old female. She is alert and orientated. VITAL SIGNS: Height is 5 feet, 2.9 inches. Weight is 141 pounds. TPR at 0748 is 95.4, 57, 16, blood pressure 132/72. HEENT: Negative. NECK: Supple. HEART: Regular rate and rhythm. LUNGS: Clear. ABDOMEN: Tender with involuntary guarding in the mid epigastric area and bilateral lower quadrants, and she reports with light palpation, pain in the right lower quadrant that radiates to her lower back. NEUROLOGIC: Cranial nerves 2 through 12 intact. EXTREMITIES: Negative, DISPOSITION: Discharged to home. FOLLOWUP: Follow up with Nat Xiong PA-C, on 06/03/2020, at 9 a.m. required clinic appointment. MEDICATIONS: New Prescriptions: [place] 5/325 mg 1 tab every 4 hours p.r.n. pain. To resume home medications. DISCHARGE INSTRUCTIONS: Diet: To advanced diet slowly, mainly stay with clear liquids or full liquids. Drink 8 to 10 glasses of water daily. May shower. Notify provider if any fever, increased pain, nausea, or vomiting.
== END 2020-05-29 11:15 | disposition home or self-care (01) | DRG 389 ==
LOC: JP.ED 19:54 → JP.MS 22:54
PROVIDERS: ADMIT Physician Assistant Medical; ATTEND Physician Assistant Medical
DX: K56.600 Partial intestinal obstruction, unspecified as to cause (principal); K91.2 Postsurgical malabsorption, not elsewhere classified; E55.9 Vitamin D deficiency, unspecified; E53.8 Deficiency of other specified B group vitamins; E89.0 Postprocedural hypothyroidism; Z20.828 Contact with and (suspected) exposure to other viral communicable diseases; E78.5 Hyperlipidemia, unspecified; I10 Essential (primary) hypertension; M17.10 Unilateral primary osteoarthritis, unspecified knee; Z98.84 Bariatric surgery status; Z79.899 Other long term (current) drug therapy; Z90.49 Acquired absence of other specified parts of digestive tract; Z90.710 Acquired absence of both cervix and uterus
CPT/HCPCS: 36415; 74019; 74177; 74177-26; 80053; 82150; 82728; 83690; 83735; 84100; 85027; 87040; 96360; 96361; 99285-25; A9270-GY; C9113; J0131; J2001; J2270; J2405; J3480; J7030; J7050; J7121; Q9967; U0002

== ENCOUNTER 2020-06-04 07:51 | Inpatient (IN) | payer OTHER ==
[~2020-06-04 07:51] MED LIST: Bupivacaine 0.5% 50 ML MDV ONE; Lidocaine 1% with EPINEPHrine 1:100,000 50 ML MDV ONE; Meropenem 500 MG SDV ONE
[2020-06-04] MEDS ORDERED: Celecoxib 200 MG Cap PO ONE (08:00)
[2020-06-04] MEDS ORDERED: Gabapentin 300 MG Cap PO ONE (08:00)
[2020-06-04] MEDS ORDERED: Acetaminophen 500 MG Tab PO ONE (08:00)
[2020-06-04] MEDS ORDERED: Scopolamine 1.5 MG Transdermal Patch TRDERM SCH (08:00)
[2020-06-04] MEDS ORDERED: Dextrose 5%-Lactated Ringers 1,000 ML IV SCH (08:30)
[2020-06-04] MEDS ORDERED: cefOXitin 2 GM in Sodium Chloride 0.9% 50 ML IV ONE (08:30)
[2020-06-04] MEDS ORDERED: Albuterol/Ipratropium 3.0-0.5 MG/3 ML Neb Soln NEB ONE (08:30)
[2020-06-04] MEDS ORDERED: Neostigmine Methylsulfate 1 MG/ML 5 ML Syringe ONE (08:33)
[2020-06-04] MEDS ORDERED: Rocuronium 50 MG/5 ML Vial ONE (08:33)
[2020-06-04] MEDS ORDERED: Glycopyrrolate 0.2 MG/ML 5 ML MDV ONE (08:33)
[2020-06-04] MEDS ORDERED: Dexamethasone 4 MG/ML SDV ONE (08:33)
[2020-06-04] MEDS ORDERED: Propofol 200 MG/20 ML SDV ONE (08:33)
[2020-06-04] MEDS ORDERED: Succinylcholine 200 MG/10 ML MDV ONE (08:33)
[2020-06-04] MEDS ORDERED: Ondansetron 4 MG/2 ML SDV ONE (08:33)
[2020-06-04] MEDS ORDERED: fentaNYL 250 MCG/5 ML SDV ONE ×2 (08:34→10:29)
[2020-06-04] MEDS ORDERED: Ketamine 50 MG in Sodium Chloride 0.9% 49.5 ML IV SCH (09:45)
[2020-06-04] MEDS ORDERED: Ketamine 500 MG/5 ML MDV IV SCH (09:45)
[2020-06-04] MEDS ORDERED: Magnesium Sulfate 1.8 GM in Sodium Chloride 0.9% 100 ML IV SCH (09:45)
[2020-06-04] MEDS ORDERED: Lactated Ringers 1,000 ML ONE (10:50)
[2020-06-04] MEDS ORDERED: Naloxone 0.4 MG/ML SDV IV PRN (11:00)
[2020-06-04] MEDS: fentaNYL/Normal Saline 600 MCG/30 ML PCA Vial IV PRN (11:57)
[2020-06-04] MEDS ORDERED: Ondansetron 4 MG/2 ML SDV IVPUSH ONE (12:28)
[2020-06-04] MEDS: Metoclopramide 10 MG/2 ML SDV IVPUSH PRN (13:46)
[2020-06-04] MEDS ORDERED: Albuterol/Ipratropium 3.0-0.5 MG/3 ML Neb Soln INH PRN (13:48)
[2020-06-04] MEDS ORDERED: Ondansetron 4 MG/2 ML SDV IVPUSH PRN (14:00)
[2020-06-04] MEDS ORDERED: Calcium Gluconate 10% 1 GM/10 ML SDV IVPUSH PRN (14:00)
[2020-06-04] MEDS ORDERED: diphenhydrAMINE 50 MG/ML SDV IVPUSH PRN (14:00)
[2020-06-04] MEDS ORDERED: Labetalol 20 MG/4 ML Syringe IVPUSH PRN (14:00)
[2020-06-04] MEDS: Acetaminophen 500 MG Tab PO SCH ×2 (15:23→21:05)
[2020-06-04] MEDS ORDERED: Pantoprazole 40 MG Vial IVPUSH SCH (16:00)
[2020-06-04] MEDS ORDERED: MVI, Adult with Vitamin K 10 ML, Thiamine 200 MG, Chromium/Copper/Mang/Selen/Zn 1 ML in... IV SCH ×4 (16:00)
[2020-06-04] MEDS: Cyclobenzaprine 10 MG Tab PO PRN (16:05)
[2020-06-04] MEDS: Albuterol/Ipratropium 3.0-0.5 MG/3 ML Neb Soln INH SCH ×2 (16:31→21:06)
[2020-06-04] MEDS: cefOXitin 2 GM in Sodium Chloride 0.9% 50 ML IV SCH ×2 (16:44→21:05)
[2020-06-04] MEDS: Docusate Sodium 100 MG Cap PO SCH (21:05)
[2020-06-04] MEDS: Heparin Sodium 5,000 Units/ML Vial SUBCUT SCH (21:06)
[2020-06-04] MEDS: Dextrose 5%-Lactated Ringers 1,000 ML IV SCH (22:04)
[2020-06-05] MEDS: Cyclobenzaprine 10 MG Tab PO PRN ×2 (01:16→10:41)
[2020-06-05] MEDS: Metoclopramide 10 MG/2 ML SDV IVPUSH PRN (01:16)
[2020-06-05] MEDS: Dextrose 5%-Lactated Ringers 1,000 ML IV SCH ×2 (03:24→07:33)
[2020-06-05] MEDS: cefOXitin 2 GM in Sodium Chloride 0.9% 50 ML IV SCH ×4 (03:24→21:25)
[2020-06-05] MEDS ORDERED: Iopamidol 612 MG/ML 50 ML SDV PO ONE (04:04)
[2020-06-05] MEDS: Acetaminophen 500 MG Tab PO SCH ×3 (06:07→21:25)
[2020-06-05] MEDS: Albuterol/Ipratropium 3.0-0.5 MG/3 ML Neb Soln INH SCH ×4 (07:03→21:20)
[2020-06-05] MEDS: fentaNYL/Normal Saline 600 MCG/30 ML PCA Vial IV PRN ×2 (07:31→22:34)
[2020-06-05] MEDS: Heparin Sodium 5,000 Units/ML Vial SUBCUT SCH ×2 (07:34→19:45)
[2020-06-05] MEDS: Levothyroxine 88 MCG Tab PO SCH (07:34)
--- NOTE | 2020-06-05 08:54 | PN ---
DATE OF SERVICE: 06/05/2020 SUBJECTIVE: Bertha states she had 1 episode during the night where her pain was uncontrolled. She felt like she fell asleep and then got behind on pushing her [employer] button. She is feeling better this morning. Vital signs have been stable. Oral intake 690. Urine output via Zamora catheter is 1345. REVIEW OF SYSTEMS: Remainder of review of systems negative for any pertinent positives and negatives. OBJECTIVE: GENERAL: Bertha Phoenix is a pleasant 49-year-old female, alert, but very tired and weak. VITAL SIGNS: TPR at 0715; 98.2, 80, 16. Blood pressure 105/57. HEENT: Negative. NECK: Supple. HEART: Regular rate and rhythm. LUNGS: Clear. ABDOMEN: Dressing dry and intact. Abdominal binder is on. EXTREMITIES: Without peripheral edema. SCDs are on. ASSESSMENT: Exploratory laparotomy with lysis of adhesions: 1. Small bowel resection. 2. Separate enterostomy to re-establish Calli-en-Y small bowel anatomy. 3. Resection of peritoneal implant mesentery Calli limb. 4. Resection of peritoneal nodule segment colon mesentery. 5. Rectosigmoid resection, coloproctostomy. 6. Repair of incisional hernia. 7. Placement of Interceed mesh. POSTOPERATIVE DIAGNOSES: 1. Partial small bowel obstruction secondary to adhesions and stricture at the jejunojejunostomy. 2. Chronic sigmoid colon volvulus. 3. Peritoneal nodules surface of Calli limb mesentery. 4. Peritoneal nodule sigmoid colon mesentery. 5. Incisional hernia. Date of procedure 06/04/2020. Surgeon: Fabricio Stevens MD. PLAN: 1. Step 2 gastric bypass diet with no cereal. 2. Decrease IV to 100 mL per hour. 3. Discontinue Zamora. 4. Continue good pulmonary toilet. 5. We will evaluate p.r.n. or in a.m. Nat Xiong PA-C /[id number]
[2020-06-05] MEDS: Celecoxib 200 MG Cap PO SCH ×2 (08:57→21:25)
[2020-06-05] MEDS: Bisacodyl 5 MG Tab PO SCH ×2 (08:58→21:25)
[2020-06-05] MEDS: Estradiol 0.5 MG Tab PO SCH (08:59)
[2020-06-05] MEDS: Docusate Sodium 100 MG Cap PO SCH ×2 (08:59→21:25)
[2020-06-05] MEDS: Hydrochlorothiazide 12.5 MG Cap PO SCH (08:59)
[2020-06-05] MEDS: SCOPOLAMINE PATCH CHECK TOP SCH (09:01)
[2020-06-05] MEDS: Losartan 50 MG Tab PO SCH (09:02)
--- NOTE | 2020-06-05 10:18 | CR ---
[employer] HISTORY: Postbariatric surgery FINDINGS: Patient swallowed water-soluble contrast. Upright views of the abdomen show no evidence of extravasation or obstruction. There is moderate retained stool in the right colon IMPRESSION: Status post bariatric surgery No extravasation or obstruction seen Moderate stool right colon
[2020-06-05] MEDS: Pantoprazole 40 MG Tab.CR PO SCH (11:21)
[2020-06-05] MEDS: hydrOXYzine HCL 100 MG/2 ML SDV IM PRN ×2 (14:54→21:25)
[2020-06-05] MEDS: MVI, Adult with Vitamin K 10 ML, Thiamine 200 MG, Chromium/Copper/Mang/Selen/Zn 1 ML in... IV SCH ×4 (16:26)
[2020-06-06] MEDS: Dextrose 5%-Lactated Ringers 1,000 ML IV SCH (03:59)
[2020-06-06] MEDS: Acetaminophen 500 MG Tab PO SCH (05:33)
[2020-06-06] MEDS: Albuterol/Ipratropium 3.0-0.5 MG/3 ML Neb Soln INH SCH ×4 (07:04→20:08)
[2020-06-06] MEDS: Levothyroxine 88 MCG Tab PO SCH (07:42)
[2020-06-06] MEDS: Pantoprazole 40 MG Tab.CR PO SCH (07:42)
[2020-06-06] MEDS: Heparin Sodium 5,000 Units/ML Vial SUBCUT SCH ×2 (07:42→20:08)
[2020-06-06] MEDS: Bisacodyl 5 MG Tab PO SCH ×2 (08:24→20:07)
[2020-06-06] MEDS: Docusate Sodium 100 MG Cap PO SCH ×2 (08:24→20:07)
[2020-06-06] MEDS: Celecoxib 200 MG Cap PO SCH ×2 (08:24→20:07)
[2020-06-06] MEDS: Hydrochlorothiazide 12.5 MG Cap PO SCH (08:24)
[2020-06-06] MEDS: Estradiol 0.5 MG Tab PO SCH (08:25)
[2020-06-06] MEDS: SCOPOLAMINE PATCH CHECK TOP SCH (08:26)
[2020-06-06] MEDS: Losartan 50 MG Tab PO SCH (08:28)
[2020-06-06] MEDS ORDERED: Cyanocobalamin (Vitamin B12) 1,000 MCG/ML SDV IM ONE (09:00)
--- NOTE | 2020-06-06 10:03 | PN ---
DATE OF SERVICE: 06/06/2020 The patient has been afebrile with stable vital signs. No major problems were noted. We will switch her to oral pain medication this afternoon. We will go up to a step 2 diet. Continue bowel stimulation. She may be ready for discharge home tomorrow. Fabricio Stevens MD /[id number]
[2020-06-06] MEDS: Acetaminophen/HYDROcodone 325-5 MG Tab PO PRN ×4 (10:10→22:20)
[2020-06-06] MEDS: MVI, Adult with Vitamin K 10 ML, Thiamine 200 MG, Chromium/Copper/Mang/Selen/Zn 1 ML in... IV SCH ×4 (15:14)
[2020-06-06] MEDS: Cyclobenzaprine 10 MG Tab PO PRN ×2 (15:19→23:50)
[2020-06-06] MEDS: Acetaminophen 500 MG Tab PO PRN (20:08)
[2020-06-07] MEDS: Acetaminophen/HYDROcodone 325-5 MG Tab PO PRN ×3 (02:17→10:45)
[2020-06-07] MEDS: Acetaminophen 500 MG Tab PO PRN (04:36)
[2020-06-07] MEDS: Albuterol/Ipratropium 3.0-0.5 MG/3 ML Neb Soln INH SCH (07:06)
[2020-06-07 07:58] VITALS: BP 108/62; PULSE 97
[2020-06-07] MEDS: Pantoprazole 40 MG Tab.CR PO SCH (08:20)
[2020-06-07] MEDS: Estradiol 0.5 MG Tab PO SCH (08:20)
[2020-06-07] MEDS: Losartan 50 MG Tab PO SCH (08:20)
[2020-06-07] MEDS: Celecoxib 200 MG Cap PO SCH (08:20)
[2020-06-07] MEDS: Heparin Sodium 5,000 Units/ML Vial SUBCUT SCH (08:21)
[2020-06-07] MEDS: Bisacodyl 5 MG Tab PO SCH (08:21)
[2020-06-07] MEDS: Hydrochlorothiazide 12.5 MG Cap PO SCH (08:21)
[2020-06-07] MEDS: Levothyroxine 88 MCG Tab PO SCH (08:21)
[2020-06-07] MEDS: Docusate Sodium 100 MG Cap PO SCH (08:21)
[2020-06-07] MEDS: Cyclobenzaprine 10 MG Tab PO PRN (08:22)
[2020-06-07] MEDS ORDERED: Magnesium Hydroxide 400 MG/5 ML Susp 30 ML Cup PO ONE (08:30)
--- NOTE | 2020-06-07 09:47 | DISCH ---
FINAL DIAGNOSES: 1. Partial small bowel obstruction secondary to adhesions and stricture at jejunojejunostomy. 2. Chronic sigmoid colon volvulus. 3. Peritoneal nodules involving surface of Calli limb and sigmoid colon. 4. Incisional hernia. 5. Bariatric surgery status. 6. History of hypertension. 7. History of hyperlipidemia. 8. Treated hypothyroidism. OPERATIVE PROCEDURES: Done on 06/04, exploratory laparotomy with lysis of adhesions and: 1. Small bowel resection. 2. Secondary enteroenterostomy for re-establishment of Calli-en-Y small bowel anatomy. 3. Resection of peritoneal implant on mesentery of Calli limb. 4. Resection of peritoneal implant on mesentery of sigmoid colon. 5. Rectosigmoid resection with coloproctostomy. 6. Repair of incisional hernia. 7. Placement of Interceed mesh to limit recurrent adhesion formation between pelvic and abdominal wall and underlying viscera. SUMMARY: This is a 49-year-old female, presenting with what appeared to be persistent partial small-bowel obstruction. On the date of admission, the patient underwent exploratory laparotomy and she was noted to have a significant degree of obstruction with fecalization of the small bowel contents and the Calli limb proximal to the jejunojejunostomy. That anastomosis was resected and reconstructed. The patient was also noted to have obvious twisting of the sigmoid colon where there was a crease across the base of the mesentery where it had been rotated, thus distal sigmoid colon resection was also undertaken with anastomosis between the mid sigmoid colon and the upper rectum. The patient had incisional hernia of the left lower quadrant, but there was repaired from within and 2 peritoneal nodules were noted and were sent as separate pathologic specimens. The patient at this point is tolerating a step-3 diet and oral pain medications. She has not moved her bowels as of yet and she will be instructed to restart the Linzess 145 mcg daily starting today. We will also give her Colace 100 mg p.o. b.i.d. x1 month and 2 doses of milk of magnesia to take as needed as well. She will be following up with Nat Xiong in [facility] on 06/12/2020 at 9:30 a.m.. Otherwise, she will be continuing her usual home medications and she will be instructed to stay on a step-3 diet until the first appointment.
--- NOTE | 2020-06-07 13:58 | OR ---
DATE OF PROCEDURE: 06/04/2020 SURGEON: Fabricio Stevens MD PREOPERATIVE DIAGNOSIS: Partial small bowel obstruction. POSTOPERATIVE DIAGNOSES: 1. Partial small bowel obstruction secondary to adhesions and stricture at jejunojejunostomy. 2. Chronic sigmoid colon volvulus. 3. Peritoneal nodule on the surface of Calli limb mesentery. 4. Peritoneal nodule in sigmoid colon mesentery. 5. Incisional hernia. OPERATIVE PROCEDURES: Exploratory laparotomy with lysis of adhesions and: 1. Small bowel resection (89644). 2. Separate enteroenterostomy to reestablish Calli-en-Y small bowel anatomy (18362). 3. Resection of peritoneal implant on mesentery of small bowel Calli limb (31521). 4. Resection of peritoneal nodule on mesentery of sigmoid colon (57268). 5. Rectosigmoid resection with coloproctostomy (48479). 6. Repair of incisional hernia (93049). 7. Placement of Interceed mesh to limit recurrent adhesion formation between pelvic and abdominal wall and underlying viscera ([id number]). ANESTHESIA: General. DIRECTOR GROUP SALES: Nat Xiong PA-C INDICATIONS FOR PROCEDURE: This is a 49-year-old female presenting with picture of persistent chronic partial small-bowel obstruction, status post previous Calli-en-Y gastric bypass. She also did have an incisional hernia located in the left lower abdomen, likely related to previous trocar site in that region. Plan is to proceed with exploratory laparotomy with release of small bowel obstruction, possible bowel resection, and repair of the hernia assuming that we are doing some open bowel work, we would not use mesh on the incisional hernia site. Potential risks of the procedure per se including bleeding, infection, injury to underlying viscera, recurrence of the bowel obstruction over time, leaks from GI tract closures, recurrence of the hernia, and remote possibility of cardiopulmonary, septic, or hemorrhagic complications leading to were discussed, and the patient wishes to proceed. DETAILS OF PROCEDURE: The patient was taken to the operating room, placed in a supine position. After general endotracheal anesthesia was induced, a Zamora catheter was inserted, and the abdomen prepped and draped. Initially, a midline incision was made from the umbilicus, roughly a handsbreadth towards the xiphoid and carried down through the full- thickness abdominal wall. Upon entering the abdomen, to access the hernia from within, incision needed to be extended somewhat inferiorly and this was done to roughly 3 fingerbreadths below the umbilicus. At that point, the adhesions between the omentum, small bowel, and anterior abdominal wall were taken down with blunt cautery dissection. The area of herniation was identified in the left lower quadrant. This was not associated with any significant adhesions, i.e. it was not incarcerated. Peritoneum overlying was excised at this point and the hernia was then repaired with fascia level from within with a running #1 Vicryl stitch. Attention was then taken to the small and large bowel. It was noted that the patient had a markedly distended sigmoid colon which appeared to chronically be rotated on itself with there being a crease at the base of the mesentery consistent with chronic sigmoid colon volvulus. Examination of the small bowel then showed an area of adhesions and stricturing at the jejunojejunostomy. Proximal to this within the Calli limb, there was some fecalization of the small bowel contents consistent with this being somewhat chronic as well. At this point, the plan was made to proceed with resection of the jejunojejunostomy. Much of the solid-type material was knocked down towards the jejunojejunostomy. Three components were then divided with MANNY alex as were the underlying mesenteric components and that specimen delivered from the field. The patient was fairly comfortable with her present weight, so no changes in the small bowel anatomy of significance were made. Initial GI tract continuity was then established with a [id number] enteroenterostomy with an internal firing of the Endo-MANNY 60 mm stapler between what had been the distal-most biliopancreatic limb and the proximal most common limb. This was accomplished with internal firing of the Endo-MANNY 60 mm stapler, followed by closure of the common opening with transversely oriented MANNY staple. The angles anastomosed and mesenteric defect were then approximated with some 3-0 Vicryl stitch and respectively 2-0 silk stitch. Calli-en-Y anatomy was then re-established with anastomosis between what had been the distal most Calli limb to the small bowel roughly 20 cm distal to the first anastomosis with the same sequence of alex and mesenteric closures as per the first anastomosis. Attention was then taken to the sigmoid colon. The sigmoid colon was brought up and the junction of the proximal and midportion of the sigmoid colon was divided initially and then the upper rectum divided with MANNY alex. The underlying mesentery was then likewise divided with alex and the segment of the bowel was resected. GI tract continuity was then accomplished with 2 internal firings of Endo-MANNY 60 mm stapler between the sigmoid colon and rectum, and the common opening was then closed with 2 firings of the MANNY purple loads. Angles anastomosed and mesenteric defect approximated with some 3-0 Vicryl stitch. At the end of this case, the anastomosis was reinforced with 4 mL of fibrin sealant as well. During the course of the dissection on the Calli limb, a nodular somewhat linear shaped peritoneal implant was noted. This was resected and sent for histologic evaluation. Upon removal, this measured in a long axis to be 5.3 cm and later in the case, smaller nodular lesion was located in the sigmoid colon mesentery. This measuring around 3 cm and this was likewise separately sent for histologic evaluation. At this point, the abdomen was irrigated with antibiotic-containing saline solution. Drain was felt not to be necessary. There was limited omentum to be placed underneath the incision and down toward the pelvis. Given this, Interceed mesh was placed from the area of the pelvic wall anteriorly and laterally and right underneath the incision, and the midline fascia was then approximated with #2 Vicryl stitch. The subcutaneous tissue with 2 layers of 3-0 and 4-0 Vicryl stitch deep and alex for the skin. Prior to closure, bilateral transversus abdominis plane blocks were then placed and the incision anesthetized with 1% lidocaine mixed with Marcaine as well. Dressing was applied. The patient was taken to the recovery room in satisfactory condition. There were no evident complications. Physician retail assistant manager, Nat Xiong, played an essential role in assisting in this case, helping to position the patient, retract structures as needed, as well as suturing and cutting sutures when indicated. Her presence improved patient safety and decreased operative time. Fabricio Stevens MD /[id number]
== END 2020-06-07 11:19 | disposition home or self-care (01) | DRG 326 ==
LOC: JP.SDSSCHI 07:51 → JP.SDS 07:52 → EDSTATUS 08:30 → JP.MS 12:15
PROVIDERS: ADMIT Surgery; ATTEND Surgery
PROC: 0D160ZA Bypass Stomach to Jejunum, Open Approach (ICD-10-PCS; principal; 2020-06-04)
PROC: 0WQF0ZZ Repair Abdominal Wall, Open Approach (ICD-10-PCS; 2020-06-04)
PROC: 0D1N0ZP Bypass Sigmoid Colon to Rectum, Open Approach (ICD-10-PCS; 2020-06-04)
PROC: 0DB80ZZ Excision of Small Intestine, Open Approach (ICD-10-PCS; 2020-06-04)
PROC: 0DBW0ZZ Excision of Peritoneum, Open Approach (ICD-10-PCS; 2020-06-04)
PROC: 0DBN0ZZ Excision of Sigmoid Colon, Open Approach (ICD-10-PCS; 2020-06-04)
PROC: 3E0M05Z Introduction of Adhesion Barrier into Peritoneal Cavity, Open Approach (ICD-10-PCS; 2020-06-04)
DX: K94.19 Other complications of enterostomy (principal); K56.2 Volvulus; Y83.8 Other surgical procedures as the cause of abnormal reaction of the patient, or of later complication, without mention of misadventure at the time of the procedure; K43.2 Incisional hernia without obstruction or gangrene; I10 Essential (primary) hypertension; E78.5 Hyperlipidemia, unspecified; E03.9 Hypothyroidism, unspecified; R19.09 Other intra-abdominal and pelvic swelling, mass and lump; Z98.84 Bariatric surgery status; Z20.828 Contact with and (suspected) exposure to other viral communicable diseases
CPT/HCPCS: 36415; 74240; 74240-26; 80053; 82150; 83690; 83735; 84100; 85027; 88302; 88305; 88307; 88341; 88342; 94640; 94762; A9270-GY; C9113; J0171; J0330; J0694; J1100; J1644; J2020; J2185; J2405; J2704; J2710; J2765; J2795; J3010; J3410; J3411; J3420; J3475; J3490; J7050; J7120; J7121; J7620-GY; Q9967; U0002

== ENCOUNTER 2020-08-19 12:56 | Inpatient (IN) | payer OTHER ==
[2020-08-19] MEDS ORDERED: Ondansetron 4 MG/2 ML SDV IVPUSH ONE (14:22)
[2020-08-19] MEDS ORDERED: Sodium Chloride 0.9% 1,000 ML IV SCH ×2 (14:30→16:30)
--- NOTE | 2020-08-19 14:48 | EDM.PDOC ---
<Hodan Holguin - Last Filed: 08/19/20 16:10> ED HPI GENERAL MEDICAL PROBLEM - General Chief Complaint: Abdominal Pain Stated Complaint: STOMACH AND BACK PAIN Time Seen by Provider: 08/19/20 14:39 Source of Information: Reports: Patient History Limitations: Reports: No Limitations - History of Present Illness INITIAL COMMENTS - FREE TEXT/NARRATIVE: pt was very distended yesterday. She was better this am and now she is still having the pain. Onset: Other ( started yesterday. She was distended yesterday. ) Duration: Hour(s): Location: Reports: Abdomen Lower Abdomen Pain Score (Numeric/FACES): 6 - Related Data Allergies Allergy/AdvReac Type Severity Reaction Status Date / Time hydromorphone [From Dilaudid] AdvReac Itching Verified 08/19/20 14:19 oxycodone AdvReac Nausea and Verified 08/19/20 14:19 Vomiting Home Meds: Home Meds Valsartan/Hydrochlorothiazide [Valsartan-Hctz 80-12.5 mg Tab] 1 tab PO DAILY 09/09/13 [History] Fluticasone Propionate [Flonase] 2 spray NASBOTH DAILY PRN 04/03/14 [History] Gabapentin [Neurontin] 300 mg PO TID PRN 04/27/17 [History] Cyanocobalamin (Vitamin B12) [Vitamin B12] 1,000 mcg IM Q30D 09/30/18 [History] Benzonatate [Tessalon Perle] 200 mg PO TID PRN 01/18/19 [History] Linaclotide [Linzess] 145 mcg PO ASDIRECTED 01/18/19 [History] Cholecalciferol (Vitamin D3) [Vitamin D3] 5,000 unit PO DAILY 02/06/19 [History] Ondansetron [Zofran ODT] 4 mg PO Q4H PRN 02/06/19 [History] guaiFENesin 5 ml PO Q4H PRN 02/06/19 [History] Levothyroxine Sodium [Synthroid] 88 mcg PO ACBREAKFAST 05/15/20 [History] estradioL [Estradiol] 1 mg PO DAILY 05/15/20 [History] Albuterol [Proventil HFA] 2 puff INH Q4H PRN 06/04/20 [History] Docusate Sodium [Colace] 100 mg PO BID #60 cap 06/07/20 [Rx] Calcium Carbonate [Calcium] 500 mg PO DAILY 08/19/20 [History] Multivitamin [Flintstones] 1 tab PO DAILY 08/19/20 [History] Vitamin B Complex 1 tab PO DAILY 08/19/20 [History] Past Medical History HEENT History: Reports: Other (See Below) Other HEENT History: seasonal allergies 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: Reports: Hypertension Gastrointestinal History: Reports: Bowel Obstruction, Pancreatitis Genitourinary History: Reports: Pyelonephritis 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 Musculoskeletal History: Reports: None Neurological History: Reports: Migraines Endocrine/Metabolic History: Reports: Other (See Below) Other Endocrine/Metabolic History: thyroidectomy Hematologic History: Reports: Anemia, B12 Deficiency, Blood Transfusion(s), Iron Deficiency, Other (See Below) Other Hematologic History: potassium deficiency - Infectious Disease History Infectious Disease History: Reports: Chicken Pox - Past Surgical History HEENT Surgical History: Reports: Adenoidectomy, LASIK, Tonsillectomy GI Surgical History: Reports: Appendectomy, Bariatric Procedure, Cholecystectomy, Colonoscopy, EGD, Hernia Repair/Other, Small Bowel Female Surgical History: Reports: Breast Biopsy, Section, Hysterectomy, Salpingo-Oophorectomy, Tubal Ligation Endocrine Surgical History: Reports: Thyroid Biopsy Musculoskeletal Surgical History: Reports: Shoulder Surgery, Other (See Below) Other Musculoskeletal Surgeries/Procedures:: L knee reconstruction Social & Family History - Family History Family Medical History: Noncontributory - Tobacco Use Smoking Status *Q: Former Smoker Used Tobacco, but Quit: Yes Month/Year Tobacco Last Used: 0 - Caffeine Use Caffeine Use: Reports: Soda Other Caffeine Use: diet pepsi - Recreational Drug Use Recreational Drug Use: No - Living Situation & Occupation Living situation: Reports: (lives in [place], [place]. with , 10 children in ages 21 yr to 5 yrs. (10 adopted)) ED ROS GENERAL - Review of Systems Review Of Systems: See Below Constitutional: Reports: No Symptoms, Decreased Appetite HEENT: Reports: No Symptoms Respiratory: Reports: No Symptoms 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: Reports: No Symptoms Endocrine: Reports: No Symptoms GI/Abdominal: Reports: Abdominal Pain, Decreased Appetite, Distension, Nausea : Reports: No Symptoms Musculoskeletal: Reports: No Symptoms Skin: Reports: No Symptoms ED EXAM, GI/ABD - Physical Exam Exam: See Below Text/Narrative:: pt arrived with history of 2 days of abdomanal distention and lower abdomanal pain. She has felt nauseated. She was very distended yesterday. She was better today. Exam Limited By: No Limitations General Appearance: Alert, Anxious, Moderate Distress Ears: Normal TMs Nose: Normal Inspection Throat/Mouth: Normal Inspection Head: Atraumatic Neck: Normal Inspection Respiratory/Chest: No Respiratory Distress 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: Regular Rate, Rhythm GI/Abdominal Exam: Tender, Other (pt is mildly distended. She is not actively vomiting, she is tender in the lower abdoman. ) (Female) Exam: Deferred Rectal (Female) Exam: Deferred Back Exam: Normal Inspection Extremities: Normal Inspection Neurological: Alert, Oriented, Normal Cognition Psychiatric: Anxious Course - Re-Assessments/Exams Free Text/Narrative Re-Assessment/Exam: 08/19/20 16:20 lab work looks good. Her cat scan of the abdoman shos a small bowel obstruction in the distal ileum. Departure - Departure Time of Disposition: 16:20 Disposition: Admitted As Inpatient 65 Condition: Fair Clinical Impression: Small bowel obstruction - Discharge Information Sepsis Event Note (ED) - Evaluation Sepsis Screening Result: No Definite Risk <Nat Xiong - Last Filed: 08/20/20 10:26> ED ROS GENERAL - Review of Systems Review Of Systems: See Below Constitutional: Reports: ROS unobtainable HEENT: Reports: No Symptoms Respiratory: Reports: No Symptoms 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: Reports: No Symptoms Endocrine: Reports: No Symptoms GI/Abdominal: Reports: Abdominal Pain, Decreased Appetite, Distension, Nausea : Reports: No Symptoms Musculoskeletal: Reports: No Symptoms Skin: Reports: No Symptoms Neurological: Reports: No Symptoms Psychiatric: Reports: No Symptoms Hematologic/Lymphatic: Reports: No Symptoms Immunologic: Reports: No Symptoms ED EXAM, GI/ABD - Physical Exam Exam: See Below Exam Limited By: Altered Mental Status General Appearance: Alert, Anxious, Moderate Distress Nose: Normal Inspection Throat/Mouth: Normal Inspection Head: Atraumatic, Normocephalic Neck: Normal Inspection Respiratory/Chest: Lungs Clear 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: Regular Rate, Rhythm GI/Abdominal Exam: Soft, Tender (in the right and left lower quadrants ) (Female) Exam: Deferred Rectal (Female) Exam: Deferred Back Exam: Normal Inspection Extremities: Normal Inspection Neurological: Alert, Oriented, Normal Cognition Psychiatric: Normal Affect Skin Exam: Warm, Dry, Normal Color Lymphatic: No Adenopathy Course - Vital Signs Last Recorded V/S: Last Vital Signs Temp 96.4 F L 08/20/20 07:00 Pulse 95 08/20/20 07:00 Resp 18 08/20/20 07:00 BP 127/53 L 08/20/20 08:38 Pulse Ox 98 08/20/20 07:23 - Orders/Labs/Meds Orders: Medication Orders Acetaminophen (Tylenol Extra Strength) 1,000 mg PO Q6H PRN PRN Reason: Pain Last Admin: 08/19/20 21:46 Dose: 1,000 mg Documented by: BAKARI Acetaminophen/Caffeine (Excedrin Tension Headache) 2 tab PO Q6H PRN PRN Reason: Headache Hydrocodone Bitart/Acetaminophen ([place] 325-5 Mg) 1 - 2 tab PO Q4H PRN PRN Reason: Pain Albuterol (Ventolin Hfa) 0 gm INH Q4H PRN PRN Reason: Shortness of Breath Albuterol (Proventil Neb Soln) 2.5 mg NEB Q4H PRN PRN Reason: Shortness Of Breath/wheezing Hydrochlorothiazide (Hydrochlorothiazide) 12.5 mg PO DAILY [facility] Last Admin: 08/20/20 08:38 Dose: 12.5 mg Documented by: EDSON Hydromorphone HCl (Dilaudid) 0.5 mg IVPUSH Q2H PRN PRN Reason: Pain Last Admin: 08/20/20 07:35 Dose: 0.5 mg Documented by: Admin: 08/20/20 02:31 Dose: 0.5 mg Documented by: Admin: 08/19/20 19:45 Dose: 0.5 mg Documented by: BAKARI Sodium Chloride (Normal Saline) 1,000 mls @ 300 mls/hr IV ASDIRECTED [facility] Last Admin: 08/19/20 16:48 Dose: 300 mls/hr Documented by: BRINDA Lactated Ringer's (Ringers, Lactated) 1,000 mls @ 125 mls/hr IV ASDIRECTED [facility] Last Admin: 08/20/20 04:13 Dose: 125 mls/hr Documented by: Infusion: 08/20/20 03:45 Dose: 125 mls/hr Documented by: Admin: 08/19/20 19:45 Dose: 125 mls/hr Documented by: BAKARI Potassium Chloride 20 meq/Lidocaine HCl 2 ml/ Sodium Chloride 112 mls @ 56 mls/hr IV Q2H JOSE CRUZ Stop: 08/20/20 15:59 Levothyroxine Sodium (Synthroid) 88 mcg PO ACBREAKFAST JOSE CRUZ Last Admin: 08/20/20 08:38 Dose: 88 mcg Documented by: EDSON Linaclotide (Linzess) 145 mcg PO ASDIRECTED PRN PRN Reason: IBS Losartan Potassium (Cozaar) 50 mg PO DAILY [facility] Last Admin: 08/20/20 08:38 Dose: 50 mg Documented by: EDSON Ondansetron HCl (Zofran) 4 mg IV Q4H PRN PRN Reason: Nausea/Vomiting Last Admin: 08/20/20 07:35 Dose: 4 mg Documented by: Admin: 08/20/20 03:01 Dose: 4 mg Documented by: Admin: 08/19/20 23:33 Dose: 4 mg Documented by: ONOFRE Pantoprazole Sodium (Protonix Iv) 40 mg IVPUSH Q24H [facility] Last Admin: 08/19/20 18:16 Dose: 40 mg Documented by: EDSON Sodium Chloride (Saline Flush) 10 ml FLUSH ASDIRECTED PRN PRN Reason: Keep Vein Open Labs: Laboratory Tests 08/19/20 08/19/20 08/19/20 Range/Units 14:19 14:29 14:29 WBC 10.4 (4.5-11.0) K/uL RBC 3.61 (3.30-5.50) M/uL Hgb 10.6 L (12.0-15.0) g/dL Hct 33.9 L (36.0-48.0) % MCV 94 (80-98) fL MCH 29 (27-31) pg MCHC 31 L (32-36) % Plt Count 361 (150-400) K/uL Neut % (Auto) 48 (36-66) % Lymph % (Auto) 41 (24-44) % [place] % (Auto) 8 H (2-6) % Eos % (Auto) 3 (2-4) % Baso % (Auto) 0 (0-1) % Sodium 139 L (140-148) mmol/L Potassium 4.2 (3.6-5.2) mmol/L Chloride 105 (100-108) mmol/L Carbon Dioxide 27 (21-32) mmol/L Anion Gap 11.2 (5.0-14.0) mmol/L BUN 17 (7-18) mg/dL Creatinine 0.8 (0.6-1.0) mg/dL Est Cr Clr Drug Dosing 69.59 mL/min Estimated GFR (MDRD) > 60 (>60) Glucose 85 (74-106) mg/dL Calcium 8.2 L (8.5-10.1) mg/dL Total Bilirubin 0.4 (0.2-1.0) mg/dL AST 24 (15-37) U/L ALT 28 (12-78) U/L Alkaline Phosphatase 83 (46-116) U/L C-Reactive Protein 0.42 H (0.0-0.3) mg/dL Total Protein 5.7 L (6.4-8.2) g/dL Albumin 2.8 L (3.4-5.0) g/dL Globulin 2.9 (2.3-3.5) g/dL Albumin/Globulin Ratio 1.0 L (1.2-2.2) Amylase (25-115) U/L Lipase (73-393) U/L Urine Color Yellow (YELLOW) Urine Appearance Clear (CLEAR) Urine pH 5.0 (5.0-8.0) Ur Specific [place] 1.025 (1.008-1.030) Urine Protein Negative (NEGATIVE) mg/dL Urine Glucose (UA) Negative (NEGATIVE) mg/dL Urine Ketones Negative (NEGATIVE) mg/dL Urine Occult Blood Negative (NEGATIVE) Urine Nitrite Negative (NEGATIVE) Urine Bilirubin Negative (NEGATIVE) Urine Urobilinogen 0.2 (0.2-1.0) EU/dL Ur Leukocyte Esterase Negative (NEGATIVE) Urine RBC 0-5 (0-5) Urine WBC 0-5 (0-5) Ur Epithelial Cells Few Amorphous Sediment Not seen Urine Bacteria Not seen Urine Mucus Not seen 08/19/20 08/19/20 Range/Units 14:39 14:40 WBC (4.5-11.0) K/uL RBC (3.30-5.50) M/uL Hgb (12.0-15.0) g/dL Hct (36.0-48.0) % MCV (80-98) fL MCH (27-31) pg MCHC (32-36) % Plt Count (150-400) K/uL Neut % (Auto) (36-66) % Lymph % (Auto) (24-44) % [place] % (Auto) (2-6) % Eos % (Auto) (2-4) % Baso % (Auto) (0-1) % Sodium (140-148) mmol/L Potassium (3.6-5.2) mmol/L Chloride (100-108) mmol/L Carbon Dioxide (21-32) mmol/L Anion Gap (5.0-14.0) mmol/L BUN (7-18) mg/dL Creatinine (0.6-1.0) mg/dL Est Cr Clr Drug Dosing mL/min Estimated GFR (MDRD) (>60) Glucose (74-106) mg/dL Calcium (8.5-10.1) mg/dL Total Bilirubin (0.2-1.0) mg/dL AST (15-37) U/L ALT (12-78) U/L Alkaline Phosphatase (46-116) U/L C-Reactive Protein (0.0-0.3) mg/dL Total Protein (6.4-8.2) g/dL Albumin (3.4-5.0) g/dL Globulin (2.3-3.5) g/dL Albumin/Globulin Ratio (1.2-2.2) Amylase 37 (25-115) U/L Lipase 116 (73-393) U/L Urine Color (YELLOW) Urine Appearance (CLEAR) Urine pH (5.0-8.0) Ur Specific [place] (1.008-1.030) Urine Protein (NEGATIVE) mg/dL Urine Glucose (UA) (NEGATIVE) mg/dL Urine Ketones (NEGATIVE) mg/dL Urine Occult Blood (NEGATIVE) Urine Nitrite (NEGATIVE) Urine Bilirubin (NEGATIVE) Urine Urobilinogen (0.2-1.0) EU/dL Ur Leukocyte Esterase (NEGATIVE) Urine RBC (0-5) Urine WBC (0-5) Ur Epithelial Cells Amorphous Sediment Urine Bacteria Urine Mucus Meds: Medications Generic Name Dose Route Start Last Admin Trade Name Freq PRN Reason Stop Dose Admin Acetaminophen 1,000 mg 08/19/20 21:20 08/19/20 21:46 Tylenol Extra Strength PO 1,000 mg Q6H PRN Administration Pain Acetaminophen/Caffeine 2 tab 08/20/20 07:47 Excedrin Tension Headache PO Q6H PRN Headache Hydrocodone Bitart/Acetaminophen 1 - 2 tab 08/20/20 07:48 [place] 325-5 Mg PO Q4H PRN Pain Albuterol 0 gm 08/19/20 17:07 Ventolin Hfa INH Q4H PRN Shortness of Breath Albuterol 2.5 mg 08/19/20 17:07 Proventil Neb Soln NEB Q4H PRN Shortness Of Breath/wheezing Hydrochlorothiazide 12.5 mg 08/20/20 09:00 08/20/20 08:38 Hydrochlorothiazide PO 12.5 mg DAILY JOSE CRUZ Administration Hydromorphone HCl 0.5 mg 08/19/20 17:07 08/20/20 07:35 Dilaudid IVPUSH 0.5 mg Q2H PRN Administration Pain Sodium Chloride 1,000 mls @ 300 mls/hr 08/19/20 16:30 08/19/20 16:48 Normal Saline IV 300 mls/hr ASDIRECTED JOSE CRUZ Administration Lactated Ringer's 1,000 mls @ 125 mls/hr 08/19/20 17:07 08/20/20 04:13 Ringers, Lactated IV 125 mls/hr ASDIRECTED JOSE CRUZ Administration Potassium Chloride 20 meq/ 112 mls @ 56 mls/hr 08/20/20 10:00 Lidocaine HCl 2 ml/ Sodium IV 08/20/20 15:59 Chloride Q2H JOSE CRUZ Levothyroxine Sodium 88 mcg 08/20/20 07:30 08/20/20 08:38 Synthroid PO 88 mcg ACBREAKFAST JOSE CRUZ Administration Linaclotide 145 mcg 08/19/20 17:07 Linzess PO ASDIRECTED PRN IBS Losartan Potassium 50 mg 08/20/20 09:00 08/20/20 08:38 Cozaar PO 50 mg DAILY JOSE CRUZ Administration Ondansetron HCl 4 mg 08/19/20 17:07 08/20/20 07:35 Zofran IV 4 mg Q4H PRN Administration Nausea/Vomiting Pantoprazole Sodium 40 mg 08/19/20 18:00 08/19/20 18:16 Protonix Iv IVPUSH 40 mg Q24H JOSE CRUZ Administration Sodium Chloride 10 ml 08/19/20 17:07 Saline Flush FLUSH ASDIRECTED PRN Keep Vein Open Discontinued Medications Generic Name Dose Route Start Last Admin Trade Name Burakq PRN Reason Stop Dose Admin Acetaminophen 1,000 mg 08/19/20 21:17 Tylenol PO Q6H PRN Pain Bisacodyl 10 mg 08/20/20 09:00 Dulcolax RECTAL 08/20/20 09:01 ONETIME ONE Bisacodyl 10 mg 08/20/20 07:45 08/20/20 09:30 Dulcolax RECTAL 08/20/20 07:46 10 mg BID ONE Administration Hydromorphone HCl 0.5 mg 08/19/20 16:17 08/19/20 16:49 Dilaudid IVPUSH 08/19/20 16:18 0.5 mg ONETIME ONE Administration Sodium Chloride 1,000 mls @ 999 mls/hr 08/19/20 14:30 08/19/20 14:39 Normal Saline IV 999 mls/hr ASDIRECTED JOSE CRUZ Administration Sodium Chloride 70 mls @ 3 mls/sec 08/19/20 15:15 08/19/20 15:17 Normal Saline IV 3 mls/sec ASDIRECTED JOSE CRUZ Administration Iopamidol 86 ml 08/19/20 15:15 08/19/20 15:17 Isovue-300 (61%) IV 86 ml . DIRECTED JOSE CRUZ Administration Ondansetron HCl 4 mg 08/19/20 14:22 08/19/20 14:39 Zofran IVPUSH 08/19/20 14:23 4 mg ONETIME ONE Administration Sodium Chloride 10 ml 08/19/20 15:08 08/19/20 15:17 Saline Flush FLUSH 08/19/20 15:09 10 ml ONETIME ONE Administration - Problem List Review Problem List Initiated/Reviewed/Updated: Yes - Assessment/Plan Assessment:: Assessment: Partial Small Bowel Obstruction Plan: 1. NPO with ice chips and sips of water 2. Saline Enema - 750 mls 3.Dulocolax suppository 1 hour after enema 4.Continue with Dulocolax suppository bid 5. Excedrin Free 1 - 2 every 6 hours prn caffeine headache 6. [place] 5 mg take 1 - 2 every 4 hours prn abdominal pain 7. Flat and Upright Abdominal X Ray in Am 08/21/2020 at 0400 8. KCL 60 meq IV with lidocaine in 3 divided doses today 9. Check labs in am Will evaluate prn or in AM
[2020-08-19] MEDS ORDERED: Sodium Chloride 0.9% 10 ML Syringe FLUSH ONE (15:08)
[2020-08-19] MEDS ORDERED: Iopamidol 612 MG/ML 100 ML Bottle IV SCH (15:15)
--- NOTE | 2020-08-19 16:03 | CRLCT ---
INDICATION: Lower abdominal pain. TECHNIQUE: Volumetric helical scanning of the abdomen and pelvis was performed with 100 cc of Isovue 300 contrast material IV. Coronal and sagittal reconstructions were obtained. COMPARISON: Abdomen/pelvis CT of 06/22/2020. FINDINGS: Postop changes of gastric bypass and sigmoid colon resection are again demonstrated. Numerous dilated small bowel loops containing stool are demonstrated. The transition point appears to be demonstrated on images 95-115 of series 2 in the posterior right pelvis. The transition site is in the distal ileum, 10 cm proximal to the ileocecal valve. No obstructing mass or inflammatory process is evident at this site. No small bowel wall thickening, free fluid or free air is demonstrated. The liver is normal in size, shape and attenuation. Post op changes of cholecystectomy are again demonstrated. No bile duct dilation is evident. The spleen is within normal limits. The adrenal glands are unremarkable. The pancreas is within normal limits. The kidneys are unremarkable. No lymphadenopathy is evident. Postop changes of total abdominal hysterectomy are again demonstrated. The lung bases are clear. The heart is normal in size. IMPRESSION: 1. Distal ileal obstruction with transition 10 cm proximal to the ileocecal valve. No obstructing mass or inflammatory process evident. Question adhesion. 2. Post gastric bypass, sigmoid colon resection, cholecystectomy and total abdominal hysterectomy. Please note that all CT scans at this facility use dose modulation, iterative reconstruction, and/or weight-based dosing when appropriate to reduce radiation dose to as low as reasonably achievable. Dictated by Malik Mendoza MD @ Aug 19 2020 3:49PM Signed by Dr. Malik Mendoza @ Aug 19 2020 4:01PM
[2020-08-19] MEDS ORDERED: HYDROmorphone 0.5 MG/0.5 ML Syringe IVPUSH ONE (16:17)
--- NOTE | 2020-08-19 16:24 | PCM.HP.2 ---
H&P History of Present Illness - General Date of Service: 08/19/20 Admit Problem/Dx: Admission Diagnosis/Problem Admission Diagnosis/Problem Abdominal pain Source of Information: Patient, Provider, RN Notes Reviewed History Limitations: Reports: No Limitations - History of Present Illness Initial Comments - Free Text/Narative: Ms. Phoenix is a 49-year-old woman who was admitted through the emergency department with back and abdominal pain, nausea, secondary to mechanical small bowel obstruction. She has a remote history of previous gastric bypass surgery. She has had recurrent difficulty with bowel obstructions requiring several surgeries. Most recent surgery for bowel obstruction was this past summer. She states that since then she has not felt well and has had progressive increase in abdominal and back pain which usually equates to her episodes of obstruction. Symptoms have been much worse over the past few days. She has had a bowel movement earlier today and has been passing gas throughout the day. Labs for the most part were unremarkable. CT scan of the abdomen pelvis shows evidence of bowel obstruction just proximal to the ileocecal valve. Lower Abdomen Pain Score (Numeric/FACES): 6 - Related Data Allergies/Adverse Reactions: Allergies Allergy/AdvReac Type Severity Reaction Status Date / Time hydromorphone [From Dilaudid] AdvReac Itching Verified 08/19/20 14:19 oxycodone AdvReac Nausea and Verified 08/19/20 14:19 Vomiting Home Medications: Home Meds Valsartan/Hydrochlorothiazide [Valsartan-Hctz 80-12.5 mg Tab] 1 tab PO DAILY 09/09/13 [History] Fluticasone Propionate [Flonase] 2 spray NASBOTH DAILY PRN 04/03/14 [History] Gabapentin [Neurontin] 300 mg PO TID PRN 04/27/17 [History] Cyanocobalamin (Vitamin B12) [Vitamin B12] 1,000 mcg IM Q30D 09/30/18 [History] Benzonatate [Tessalon Perle] 200 mg PO TID PRN 01/18/19 [History] Linaclotide [Linzess] 145 mcg PO ASDIRECTED 01/18/19 [History] Cholecalciferol (Vitamin D3) [Vitamin D3] 5,000 unit PO DAILY 02/06/19 [History] Ondansetron [Zofran ODT] 4 mg PO Q4H PRN 02/06/19 [History] guaiFENesin 5 ml PO Q4H PRN 02/06/19 [History] Levothyroxine Sodium [Synthroid] 88 mcg PO ACBREAKFAST 05/15/20 [History] estradioL [Estradiol] 1 mg PO DAILY 05/15/20 [History] Albuterol [Proventil HFA] 2 puff INH Q4H PRN 06/04/20 [History] Docusate Sodium [Colace] 100 mg PO BID #60 cap 06/07/20 [Rx] Calcium Carbonate [Calcium] 500 mg PO DAILY 08/19/20 [History] Multivitamin [Flintstones] 1 tab PO DAILY 08/19/20 [History] Vitamin B Complex 1 tab PO DAILY 08/19/20 [History] Past Medical History HEENT History: Reports: Other (See Below) Other HEENT History: seasonal allergies 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: Reports: Hypertension Gastrointestinal History: Reports: Bowel Obstruction, Pancreatitis Genitourinary History: Reports: Pyelonephritis [employer] History: Reports: Other OB/BYN History: has 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 Musculoskeletal History: Reports: None Neurological History: Reports: Migraines Endocrine/Metabolic History: Reports: Other (See Below) Other Endocrine/Metabolic History: thyroidectomy Hematologic History: Reports: Anemia, B12 Deficiency, Blood Transfusion(s), Iron Deficiency, Other (See Below) Other Hematologic History: potassium deficiency - Infectious Disease History Infectious Disease History: Reports: Chicken Pox - Past Surgical History HEENT Surgical History: Reports: Adenoidectomy, LASIK, Tonsillectomy GI Surgical History: Reports: Appendectomy, Bariatric Procedure, Cholecystectomy, Colonoscopy, EGD, Hernia Repair/Other, Small Bowel Female Surgical History: Reports: Breast Biopsy, Section, Hysterectomy, Salpingo-Oophorectomy, Tubal Ligation Endocrine Surgical History: Reports: Thyroid Biopsy Musculoskeletal Surgical History: Reports: Shoulder Surgery, Other (See Below) Other Musculoskeletal Surgeries/Procedures:: L knee reconstruction Social & Family History - Family History Family Medical History: Noncontributory - Tobacco Use Smoking Status *Q: Former Smoker Used Tobacco, but Quit: Yes Month/Year Tobacco Last Used: 0 - Caffeine Use Caffeine Use: Reports: Soda Other Caffeine Use: diet pepsi - Recreational Drug Use Recreational Drug Use: No - Living Situation & Occupation Living situation: Reports: (lives in [place], [place]. with , 10 children in ages 21 yr to 5 yrs. (10 adopted)) H&P Review of Systems - Review of Systems: Review Of Systems: See Below General: Reports: Malaise, Weakness. Denies: Fever, Chills HEENT: Reports: No Symptoms Pulmonary: Reports: No Symptoms 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: Reports: No Symptoms Gastrointestinal: Reports: Abdominal Pain, Distension, Nausea. Denies: Constipation, Diarrhea, Difficulty Swallowing, Hematemesis, Hematochezia, Melena, Vomiting Genitourinary: Reports: No Symptoms Musculoskeletal: Reports: No Symptoms Skin: Reports: No Symptoms Psychiatric: Reports: No Symptoms Neurological: Reports: No Symptoms Hematologic/Lymphatic: Reports: No Symptoms Immunologic: Reports: No Symptoms Exam - Exam Exam: See Below - Vital Signs Vital Signs: Last Vital Signs Temp 98.9 F 08/19/20 14:18 Pulse 82 08/19/20 14:18 Resp 16 08/19/20 14:18 BP 113/75 08/19/20 14:18 Pulse Ox 98 08/19/20 14:18 Weight: 126 lb - Exam Quality Assessment: DVT Prophylaxis General: Alert, Oriented, Cooperative, Moderate Distress HEENT: Conjunctiva Clear, Hearing Intact, Mucosa Moist & [employer], Normal Nasal Septum, Posterior Pharynx Clear, Pupils Equal Neck: Supple, Trachea Midline, +2 Carotid Pulse wo Bruit Lungs: Clear to Auscultation, Normal Respiratory Effort 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: Regular Rate, Regular Rhythm, Normal S1, Normal S2. No: Systolic Murmur, Diastolic Murmur GI/Abdominal Exam: Soft, No Organomegaly, Distended, Tender. No: Guarding, R igid, Rebound Back Exam: Normal Inspection, Full Range of Motion Extremities: Non-Tender, No Pedal Edema Skin: Warm, Dry, Intact Neurological: Cranial Nerves Intact, Strength Equal Bilateral, Normal Speech, Normal Tone, Sensation Intact. No: Focal Deficit Neuro Extensive - Mental Status: Alert, Oriented x3, Normal Mood/Affect, Normal Cognition, Memory Intact - Patient Data Lab Results Last 24 hrs: Laboratory Results - last 24 hr 08/19/20 08/19/20 08/19/20 Range/Units 14:19 14:29 14:29 WBC 10.4 (4.5-11.0) K/uL RBC 3.61 (3.30-5.50) M/uL Hgb 10.6 L (12.0-15.0) g/dL Hct 33.9 L (36.0-48.0) % MCV 94 (80-98) fL MCH 29 (27-31) pg MCHC 31 L (32-36) % Plt Count 361 (150-400) K/uL Neut % (Auto) 48 (36-66) % Lymph % (Auto) 41 (24-44) % [place] % (Auto) 8 H (2-6) % Eos % (Auto) 3 (2-4) % Baso % (Auto) 0 (0-1) % Sodium 139 L (140-148) mmol/L Potassium 4.2 (3.6-5.2) mmol/L Chloride 105 (100-108) mmol/L Carbon Dioxide 27 (21-32) mmol/L Anion Gap 11.2 (5.0-14.0) mmol/L BUN 17 (7-18) mg/dL Creatinine 0.8 (0.6-1.0) mg/dL Est Cr Clr Drug Dosing 69.59 mL/min Estimated GFR (MDRD) > 60 (>60) Glucose 85 (74-106) mg/dL Calcium 8.2 L (8.5-10.1) mg/dL Total Bilirubin 0.4 (0.2-1.0) mg/dL AST 24 (15-37) U/L ALT 28 (12-78) U/L Alkaline Phosphatase 83 (46-116) U/L C-Reactive Protein 0.42 H (0.0-0.3) mg/dL Total Protein 5.7 L (6.4-8.2) g/dL Albumin 2.8 L (3.4-5.0) g/dL Globulin 2.9 (2.3-3.5) g/dL Albumin/Globulin Ratio 1.0 L (1.2-2.2) Amylase (25-115) U/L Lipase (73-393) U/L Urine Color Yellow (YELLOW) Urine Appearance Clear (CLEAR) Urine pH 5.0 (5.0-8.0) Ur Specific Peggs 1.025 (1.008-1.030) Urine Protein Negative (NEGATIVE) mg/dL Urine Glucose (UA) Negative (NEGATIVE) mg/dL Urine Ketones Negative (NEGATIVE) mg/dL Urine Occult Blood Negative (NEGATIVE) Urine Nitrite Negative (NEGATIVE) Urine Bilirubin Negative (NEGATIVE) Urine Urobilinogen 0.2 (0.2-1.0) EU/dL Ur Leukocyte Esterase Negative (NEGATIVE) Urine RBC 0-5 (0-5) Urine WBC 0-5 (0-5) Ur Epithelial Cells Few Amorphous Sediment Not seen Urine Bacteria Not seen Urine Mucus Not seen 08/19/20 08/19/20 Range/Units 14:39 14:40 WBC (4.5-11.0) K/uL RBC (3.30-5.50) M/uL Hgb (12.0-15.0) g/dL Hct (36.0-48.0) % MCV (80-98) fL MCH (27-31) pg MCHC (32-36) % Plt Count (150-400) K/uL Neut % (Auto) (36-66) % Lymph % (Auto) (24-44) % [place] % (Auto) (2-6) % Eos % (Auto) (2-4) % Baso % (Auto) (0-1) % Sodium (140-148) mmol/L Potassium (3.6-5.2) mmol/L Chloride (100-108) mmol/L Carbon Dioxide (21-32) mmol/L Anion Gap (5.0-14.0) mmol/L BUN (7-18) mg/dL Creatinine (0.6-1.0) mg/dL Est Cr Clr Drug Dosing mL/min Estimated GFR (MDRD) (>60) Glucose (74-106) mg/dL Calcium (8.5-10.1) mg/dL Total Bilirubin (0.2-1.0) mg/dL AST (15-37) U/L ALT (12-78) U/L Alkaline Phosphatase (46-116) U/L C-Reactive Protein (0.0-0.3) mg/dL Total Protein (6.4-8.2) g/dL Albumin (3.4-5.0) g/dL Globulin (2.3-3.5) g/dL Albumin/Globulin Ratio (1.2-2.2) Amylase 37 (25-115) U/L Lipase 116 (73-393) U/L Urine Color (YELLOW) Urine Appearance (CLEAR) Urine pH (5.0-8.0) Ur Specific Peggs (1.008-1.030) Urine Protein (NEGATIVE) mg/dL Urine Glucose (UA) (NEGATIVE) mg/dL Urine Ketones (NEGATIVE) mg/dL Urine Occult Blood (NEGATIVE) Urine Nitrite (NEGATIVE) Urine Bilirubin (NEGATIVE) Urine Urobilinogen (0.2-1.0) EU/dL Ur Leukocyte Esterase (NEGATIVE) Urine RBC (0-5) Urine WBC (0-5) Ur Epithelial Cells Amorphous Sediment Urine Bacteria Urine Mucus Result Diagrams: 08/19/20 14:29 08/19/20 14:29 Sepsis Event Note - Evaluation Sepsis Screening Result: No Definite Risk - Focused Exam Vital Signs: Vital Signs Temp Pulse Resp BP Pulse Ox 08/19/20 14:18 98.9 F 82 16 113/75 98 08/19/20 14:03 98.9 F 82 16 113/75 98 *Q Meaningful Use (ADM) - VTE Risk Assess *Q Each Risk Factor Represents 1 Point: Age 41 - 59 years Total Score 1 Point Risk Factors: 1 Each Risk Factor Represents 2 Points: None Total Score 2 Point Risk Factors: 0 Each Risk Factor Represents 3 Points: None Total Score 3 Point Risk Factors: 0 Each Risk Factor Represents 5 Points: None Total Score 5 Point Risk Factors: 0 Venous Thromboembolism Risk Factor Score *Q: 1 Problem List Initiated/Reviewed/Updated: Yes Orders Last 24hrs: Active Orders 24 hr Category Date Time Status Patient Status Manage Transfer [TRANSFER] Routine ADT 08/19/20 16:17 Ordered Iopamidol [Isovue-300 (61%)] Med 08/19/20 15:15 Active 86 ml IV . DIRECTED Sodium Chloride 0.9% [Normal Saline] 1,000 ml Med 08/19/20 14:30 Active IV ASDIRECTED Sodium Chloride 0.9% [Normal Saline] 1,000 ml Med 08/19/20 16:30 Active IV ASDIRECTED Sodium Chloride 0.9% [Normal Saline] 70 ml Med 08/19/20 15:15 Active IV ASDIRECTED Resuscitation Status Routine Resus Stat 08/19/20 16:20 Ordered Medication Orders Sodium Chloride (Normal Saline) 1,000 mls @ 999 mls/hr IV ASDIRECTED JOSE CRUZ Last Admin: 08/19/20 14:39 Dose: 999 mls/hr Documented by: BRINDA Sodium Chloride (Normal Saline) 70 mls @ 3 mls/sec IV ASDIRECTED [facility] Last Admin: 08/19/20 15:17 Dose: 3 mls/sec Documented by: ADILENE Sodium Chloride (Normal Saline) 1,000 mls @ 300 mls/hr IV ASDIRECTED [facility] Iopamidol (Isovue-300 (61%)) 86 ml IV . DIRECTED [facility] Last Admin: 08/19/20 15:17 Dose: 86 ml Documented by: ADILENE Assessment/Plan Comment:: ASSESSMENT AND PLAN MECHANICAL SMALL BOWEL OBSTRUCTION-likely partial and that she has been passing some gas and did have a bowel movement earlier today. CT scan does show evidence of a transition point proximal to the ileocecal valve. -N.p.o. -IV fluids for hydration -Pain and nausea medication as needed -Follow-up abdominal x-ray in a.m. -Dr. Stevens to see in a.m. and assume care MAINTENANCE ISSUES -DVT prophylaxis; SCUDs -GI prophylaxis; not indicated -Zamora catheter; not indicated -Nutrition; n.p.o. -Nicotine dependence; not required CODE STATUS-FULL CODE ADMISSION STATUS-patient will be admitted to inpatient status, expect at least a 2 night hospital stay for evaluation and management of problems as outlined above. At the time of this admission I do not reasonably expected evaluation and management of this problem will require more than a 96 hour hospital stay. DISPOSITION-anticipate discharge to home after the hospital stay. PRIMARY CARE PROVIDER-Dr. Haines - Mortality Measure Prognosis:: Good
[2020-08-19] MEDS ORDERED: Albuterol 8 GM Inhaler INH PRN (17:07)
[2020-08-19] MEDS ORDERED: Sodium Chloride 0.9% 10 ML Syringe FLUSH PRN (17:07)
[2020-08-19] MEDS ORDERED: Albuterol 0.083% 2.5 MG/3 ML Neb Soln NEB PRN (17:07)
[2020-08-19] MEDS ORDERED: Pantoprazole 40 MG Vial IVPUSH SCH (18:00)
[2020-08-19] MEDS: Lactated Ringers 1,000 ML IV SCH (19:45)
[2020-08-19] MEDS: HYDROmorphone 0.5 MG/0.5 ML Syringe IVPUSH PRN (19:45)
[2020-08-19] MEDS ORDERED: Acetaminophen 325 MG Tab PO PRN (21:17)
[2020-08-19] MEDS ORDERED: Acetaminophen 500 MG Tab PO PRN (21:20)
[2020-08-19] MEDS: Ondansetron 4 MG/2 ML SDV IV PRN (23:33)
[2020-08-20] MEDS: HYDROmorphone 0.5 MG/0.5 ML Syringe IVPUSH PRN ×2 (02:31→07:35)
[2020-08-20] MEDS: Ondansetron 4 MG/2 ML SDV IV PRN ×4 (03:01→17:01)
[2020-08-20] MEDS: Lactated Ringers 1,000 ML IV SCH (04:13)
[2020-08-20] MEDS ORDERED: Bisacodyl 10 MG Supp RECTAL ONE ×2 (07:45→09:00)
[2020-08-20] MEDS ORDERED: Acetaminophen/Caffeine 500-65 MG Tab PO PRN (07:47)
[2020-08-20] MEDS: Losartan 50 MG Tab PO SCH (08:38)
[2020-08-20] MEDS: Hydrochlorothiazide 12.5 MG Cap PO SCH (08:38)
[2020-08-20] MEDS: Levothyroxine 88 MCG Tab PO SCH (08:38)
--- NOTE | 2020-08-20 09:11 | CR ---
Abdomen 2V AP Upright Decub CLINICAL HISTORY: Follow-up SBO FINDINGS: There is moderate retained stool in the right colon and rectum. There is mild gaseous distention of the transverse colon. There are scattered air-filled loops of small bowel in a nonspecific pattern. There has been previous abdominal surgery. IMPRESSION: Gaseous distention has increased slightly since the CT study of 08/19/2020 Moderate fecal retention in the right colon and rectum. Fecal impaction is not excluded
--- NOTE | 2020-08-20 10:09 | PCM.HP.2 ---
H&P History of Present Illness - General Date of Service: 08/20/20 Admit Problem/Dx: Admission Diagnosis/Problem Admission Diagnosis/Problem Abdominal pain Source of Information: Patient History Limitations: Reports: No Limitations - History of Present Illness Initial Comments - Free Text/Narative: Bertha was last seen in the clinic on 07/30/2020 for abdominal pain stating she has good days and bad days. routinely has 4 - 6 loose stools a day but still feels like she is constipated. States when she has the urge to have a BM she has to sit on the toilet for an extended amount of time and push. Bertha states she has pushed so hard that she has gotten hemorrhoids. Bertha r eports abdominal pain almost daily and she can usually handle it at home until last Monday the pain became more severe and didn't go away. If she takes Linzess she will have diarrhea stools but very urgent that if she can't get to a restroom fast enough she will be incontinent. Continues to vomit either during the evening meal or after the evening meal. Recently had an appointment with a GI Specialist. Onset of Symptoms: Reports: Gradual Location: Reports: Abdomen (lower mid abdomen and radiates to the back. ) Quality: Reports: Sharp, Stabbing Improves with: Reports: None Worsens with: Reports: None Associated Symptoms: Reports: Nausea/Vomiting Lower Abdomen Pain Score (Numeric/FACES): 8 - Related Data Allergies/Adverse Reactions: Allergies Allergy/AdvReac Type Severity Reaction Status Date / Time hydromorphone [From Dilaudid] AdvReac Itching Verified 08/19/20 14:19 oxycodone AdvReac Nausea and Verified 08/19/20 14:19 Vomiting Home Medications: Home Meds Valsartan/Hydrochlorothiazide [Valsartan-Hctz 80-12.5 mg Tab] 1 tab PO DAILY 09/09/13 [History] Fluticasone Propionate [Flonase] 2 spray NASBOTH DAILY PRN 04/03/14 [History] Gabapentin [Neurontin] 300 mg PO TID PRN 04/27/17 [History] Cyanocobalamin (Vitamin B12) [Vitamin B12] 1,000 mcg IM Q30D 09/30/18 [History] Benzonatate [Tessalon Perle] 200 mg PO TID PRN 01/18/19 [History] Linaclotide [Linzess] 145 mcg PO ASDIRECTED 01/18/19 [History] Cholecalciferol (Vitamin D3) [Vitamin D3] 5,000 unit PO DAILY 02/06/19 [History] Ondansetron [Zofran ODT] 4 mg PO Q4H PRN 02/06/19 [History] guaiFENesin 5 ml PO Q4H PRN 02/06/19 [History] Levothyroxine Sodium [Synthroid] 88 mcg PO ACBREAKFAST 05/15/20 [History] estradioL [Estradiol] 1 mg PO DAILY 05/15/20 [History] Albuterol [Proventil HFA] 2 puff INH Q4H PRN 06/04/20 [History] Docusate Sodium [Colace] 100 mg PO BID #60 cap 06/07/20 [Rx] Calcium Carbonate [Calcium] 500 mg PO DAILY 08/19/20 [History] Multivitamin [Flintstones] 1 tab PO DAILY 08/19/20 [History] Vitamin B Complex 1 tab PO DAILY 08/19/20 [History] Past Medical History HEENT History: Reports: Other (See Below) Other HEENT History: seasonal allergies 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: Reports: Hypertension Gastrointestinal History: Reports: Bowel Obstruction, Pancreatitis Genitourinary History: Reports: Pyelonephritis 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 OB/BYN History: has 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 Musculoskeletal History: Reports: None Neurological History: Reports: Migraines Endocrine/Metabolic History: Reports: Other (See Below) Other Endocrine/Metabolic History: thyroidectomy Hematologic History: Reports: Anemia, B12 Deficiency, Blood Transfusion(s), Iron Deficiency, Other (See Below) Other Hematologic History: potassium deficiency - Infectious Disease History Infectious Disease History: Reports: Chicken Pox - Past Surgical History HEENT Surgical History: Reports: Adenoidectomy, LASIK, Tonsillectomy GI Surgical History: Reports: Appendectomy, Bariatric Procedure, Cholecystectomy, Colonoscopy, EGD, Hernia Repair/Other, Small Bowel Female Surgical History: Reports: Breast Biopsy, Section, Hysterectomy, Salpingo-Oophorectomy, Tubal Ligation Endocrine Surgical History: Reports: Thyroid Biopsy Musculoskeletal Surgical History: Reports: Shoulder Surgery, Other (See Below) Other Musculoskeletal Surgeries/Procedures:: L knee reconstruction Social & Family History - Family History Family Medical History: Noncontributory - Tobacco Use Smoking Status *Q: Former Smoker Used Tobacco, but Quit: Yes Month/Year Tobacco Last Used: 0 Second Hand Smoke Exposure: No - Caffeine Use Caffeine Use: Reports: Soda Other Caffeine Use: diet pepsi - Recreational Drug Use Recreational Drug Use: No Drug Use in Last 12 Months: No - Living Situation & Occupation Living situation: Reports: (lives in [place], [place]. with , 10 child cm in ages 21 yr to 5 yrs. (10 adopted)) H&P Review of Systems - Review of Systems: Review Of Systems: See Below General: Reports: Fatigue HEENT: Reports: No Symptoms Pulmonary: Reports: No Symptoms 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: Reports: No Symptoms Gastrointestinal: Reports: Abdominal Pain, Nausea Genitourinary: Reports: No Symptoms Musculoskeletal: Reports: No Symptoms Skin: Reports: No Symptoms Psychiatric: Reports: No Symptoms Neurological: Reports: No Symptoms Hematologic/Lymphatic: Reports: No Symptoms Immunologic: Reports: No Symptoms Exam - Exam Exam: See Below - Vital Signs Vital Signs: Last Vital Signs Temp 96.4 F L 08/20/20 07:00 Pulse 95 08/20/20 07:00 Resp 18 08/20/20 07:00 BP 127/53 L 08/20/20 08:38 Pulse Ox 98 08/20/20 07:23 Weight: 133 lb 6.4 oz - Patient Data Lab Results Last 24 hrs: Laboratory Results - last 24 hr 08/19/20 08/19/20 08/19/20 Range/Units 14:19 14:29 14:29 WBC 10.4 (4.5-11.0) K/uL RBC 3.61 (3.30-5.50) M/uL Hgb 10.6 L (12.0-15.0) g/dL Hct 33.9 L (36.0-48.0) % MCV 94 (80-98) fL MCH 29 (27-31) pg MCHC 31 L (32-36) % Plt Count 361 (150-400) K/uL Neut % (Auto) 48 (36-66) % Lymph % (Auto) 41 (24-44) % Gage % (Auto) 8 H (2-6) % Eos % (Auto) 3 (2-4) % Baso % (Auto) 0 (0-1) % Sodium 139 L (140-148) mmol/L Potassium 4.2 (3.6-5.2) mmol/L Chloride 105 (100-108) mmol/L Carbon Dioxide 27 (21-32) mmol/L Anion Gap 11.2 (5.0-14.0) mmol/L BUN 17 (7-18) mg/dL Creatinine 0.8 (0.6-1.0) mg/dL Est Cr Clr Drug Dosing 69.59 mL/min Estimated GFR (MDRD) > 60 (>60) Glucose 85 (74-106) mg/dL Calcium 8.2 L (8.5-10.1) mg/dL Total Bilirubin 0.4 (0.2-1.0) mg/dL AST 24 (15-37) U/L ALT 28 (12-78) U/L Alkaline Phosphatase 83 (46-116) U/L C-Reactive Protein 0.42 H (0.0-0.3) mg/dL Total Protein 5.7 L (6.4-8.2) g/dL Albumin 2.8 L (3.4-5.0) g/dL Globulin 2.9 (2.3-3.5) g/dL Albumin/Globulin Ratio 1.0 L (1.2-2.2) Amylase (25-115) U/L Lipase (73-393) U/L Urine Color Yellow (YELLOW) Urine Appearance Clear (CLEAR) Urine pH 5.0 (5.0-8.0) Ur Specific [place] 1.025 (1.008-1.030) Urine Protein Negative (NEGATIVE) mg/dL Urine Glucose (UA) Negative (NEGATIVE) mg/dL Urine Ketones Negative (NEGATIVE) mg/dL Urine Occult Blood Negative (NEGATIVE) Urine Nitrite Negative (NEGATIVE) Urine Bilirubin Negative (NEGATIVE) Urine Urobilinogen 0.2 (0.2-1.0) EU/dL Ur Leukocyte Esterase Negative (NEGATIVE) Urine RBC 0-5 (0-5) Urine WBC 0-5 (0-5) Ur Epithelial Cells Few Amorphous Sediment Not seen Urine Bacteria Not seen Urine Mucus Not seen 08/19/20 08/19/20 08/20/20 Range/Units 14:39 14:40 04:10 WBC 7.0 (4.5-11.0) K/uL RBC 3.17 L (3.30-5.50) M/uL Hgb 9.4 L (12.0-15.0) g/dL Hct 30.3 L (36.0-48.0) % MCV 96 (80-98) fL MCH 30 (27-31) pg MCHC 31 L (32-36) % Plt Count 292 (150-400) K/uL Neut % (Auto) 41 (36-66) % Lymph % (Auto) 44 (24-44) % Gage % (Auto) 8 H (2-6) % Eos % (Auto) 6 H (2-4) % Baso % (Auto) 1 (0-1) % Sodium (140-148) mmol/L Potassium (3.6-5.2) mmol/L Chloride (100-108) mmol/L Carbon Dioxide (21-32) mmol/L Anion Gap (5.0-14.0) mmol/L BUN (7-18) mg/dL Creatinine (0.6-1.0) mg/dL Est Cr Clr Drug Dosing mL/min Estimated GFR (MDRD) (>60) Glucose (74-106) mg/dL Calcium (8.5-10.1) mg/dL Total Bilirubin (0.2-1.0) mg/dL AST (15-37) U/L ALT (12-78) U/L Alkaline Phosphatase (46-116) U/L C-Reactive Protein (0.0-0.3) mg/dL Total Protein (6.4-8.2) g/dL Albumin (3.4-5.0) g/dL Globulin (2.3-3.5) g/dL Albumin/Globulin Ratio (1.2-2.2) Amylase 37 (25-115) U/L Lipase 116 (73-393) U/L Urine Color (YELLOW) Urine Appearance (CLEAR) Urine pH (5.0-8.0) Ur Specific [place] (1.008-1.030) Urine Protein (NEGATIVE) mg/dL Urine Glucose (UA) (NEGATIVE) mg/dL Urine Ketones (NEGATIVE) mg/dL Urine Occult Blood (NEGATIVE) Urine Nitrite (NEGATIVE) Urine Bilirubin (NEGATIVE) Urine Urobilinogen (0.2-1.0) EU/dL Ur Leukocyte Esterase (NEGATIVE) Urine RBC (0-5) Urine WBC (0-5) Ur Epithelial Cells Amorphous Sediment Urine Bacteria Urine Mucus 08/20/20 Range/Units 04:10 WBC (4.5-11.0) K/uL RBC (3.30-5.50) M/uL Hgb (12.0-15.0) g/dL Hct (36.0-48.0) % MCV (80-98) fL MCH (27-31) pg MCHC (32-36) % Plt Count (150-400) K/uL Neut % (Auto) (36-66) % Lymph % (Auto) (24-44) % Gage % (Auto) (2-6) % Eos % (Auto) (2-4) % Baso % (Auto) (0-1) % Sodium 141 (140-148) mmol/L Potassium 3.1 L (3.6-5.2) mmol/L Chloride 108 (100-108) mmol/L Carbon Dioxide 27 (21-32) mmol/L Anion Gap 9.1 (5.0-14.0) mmol/L BUN 13 (7-18) mg/dL Creatinine 0.7 (0.6-1.0) mg/dL Est Cr Clr Drug Dosing 79.54 mL/min Estimated GFR (MDRD) > 60 (>60) Glucose 77 (74-106) mg/dL Calcium 7.8 L (8.5-10.1) mg/dL Total Bilirubin (0.2-1.0) mg/dL AST (15-37) U/L ALT (12-78) U/L Alkaline Phosphatase (46-116) U/L C-Reactive Protein (0.0-0.3) mg/dL Total Protein (6.4-8.2) g/dL Albumin (3.4-5.0) g/dL Globulin (2.3-3.5) g/dL Albumin/Globulin Ratio (1.2-2.2) Amylase (25-115) U/L Lipase (73-393) U/L Urine Color (YELLOW) Urine Appearance (CLEAR) Urine pH (5.0-8.0) Ur Specific [place] (1.008-1.030) Urine Protein (NEGATIVE) mg/dL Urine Glucose (UA) (NEGATIVE) mg/dL Urine Ketones (NEGATIVE) mg/dL Urine Occult Blood (NEGATIVE) Urine Nitrite (NEGATIVE) Urine Bilirubin (NEGATIVE) Urine Urobilinogen (0.2-1.0) EU/dL Ur Leukocyte Esterase (NEGATIVE) Urine RBC (0-5) Urine WBC (0-5) Ur Epithelial Cells Amorphous Sediment Urine Bacteria Urine Mucus Result Diagrams: 08/20/20 04:10 08/20/20 04:10 Sepsis Event Note - Evaluation Sepsis Screening Result: No Definite Risk - Focused Exam Vital Signs: Vital Signs Temp Pulse Resp BP BP Pulse Ox 08/20/20 08:38 127/53 L 08/20/20 07:23 98 08/20/20 07:00 96.4 F L 95 18 124/81 96 08/20/20 02:34 96.1 F L 60 16 140/97 H 100 08/20/20 00:35 94 L 08/19/20 22:39 96.7 F L 77 16 113/81 96 *Q Meaningful Use (ADM) - VTE *Q VTE Pharmacological Contraindications *Q: Patient Scheduled Surgery Problem List Initiated/Reviewed/Updated: Yes Orders Last 24hrs: Active Orders 24 hr Category Date Time Status Patient Status [ADT] Routine ADT 08/19/20 17:07 Active Ambulate [RC] QID Care 08/19/20 17:07 Active Antiembolic Devices [RC] .Routine Care 08/19/20 17:07 Active Communication Order [RC] ASDIRECTED Care 08/20/20 07:44 Active Height and Weight [RC] DAILY Care 08/19/20 17:07 Active Intake and Output [RC] QSHIFT Care 08/19/20 17:07 Active Notify Provider Vital Signs [RC] ASDIRECTED Care 08/19/20 17:07 Active Oxygen Therapy [RC] PRN Care 08/19/20 17:07 Active Peripheral IV Care [RC] . DIRECTED Care 08/19/20 17:07 Active Pulse Oximetry [RC] CONTINUOUS Care 08/19/20 17:07 Active RT Aerosol Therapy [RC] ASDIRECTED Care 08/19/20 17:07 Active RT Post Treatment Assessment [RC] Click to Edit Care 08/19/20 17:07 Active Up to Chair [RC] QID Care 08/19/20 17:07 Active Vital Signs [RC] Q4H Care 08/19/20 17:07 Active NPO Now [Nothing per Oral Now Diet] [DIET] Diet 08/20/20 Breakfast Active Nothing per Oral Now Diet [DIET] Diet 08/19/20 Dinner Active Abdomen 2V AP Flat Upright [CR] Timed Exams 08/21/20 04:00 Ordered Acetaminophen [Tylenol Extra Strength] Med 08/19/20 21:20 Active 1,000 mg PO Q6H PRN Acetaminophen/Caffeine [Excedrin Tension Headache] Med 08/20/20 07:47 Active 2 tab PO Q6H PRN Acetaminophen/HYDROcodone [[place] 325-5 MG] Med 08/20/20 07:48 Active 1 - 2 tab PO Q4H PRN Albuterol [Proventil Neb Soln] Med 08/19/20 17:07 Active 2.5 mg NEB Q4H PRN Albuterol [Ventolin HFA] Med 08/19/20 17:07 Active 0 gm INH Q4H PRN HYDROmorphone [Dilaudid] Med 08/19/20 17:07 Active 0.5 mg IVPUSH Q2H PRN Lactated Ringers [Ringers, Lactated] 1,000 ml Med 08/19/20 17:07 Active IV ASDIRECTED Levothyroxine [Synthroid] Med 08/20/20 07:30 Active 88 mcg PO ACBREAKFAST Linaclotide [Linzess] Med 08/19/20 17:07 Active 145 mcg PO ASDIRECTED PRN Losartan [Cozaar] Med 08/20/20 09:00 Active 50 mg PO DAILY Ondansetron [Zofran] Med 08/19/20 17:07 Active 4 mg IV Q4H PRN Pantoprazole [ProTONIX IV] Med 08/19/20 18:00 Active 40 mg IVPUSH Q24H Potassium Chloride 20 meq Med 08/20/20 10:00 Active Lidocaine 1% [Xylocaine 1%] 2 ml Sodium Chloride 0.9% [Normal Saline] 100 ml IV Q2H Sodium Chloride 0.9% [Normal Saline] 1,000 ml Med 08/19/20 16:30 Active IV ASDIRECTED Sodium Chloride 0.9% [Saline Flush] Med 08/19/20 17:07 Active 10 ml FLUSH ASDIRECTED PRN hydroCHLOROthiazide Med 08/20/20 09:00 Active 12.5 mg PO DAILY Peripheral IV Insertion Adult [OM.PC] Routine Oth 08/19/20 17:07 Ordered Sequential Compression Device [OM.PC] Per Unit Routine Oth 08/19/20 17:07 Ordered VTE Pharmacological Contraindications [AST] Per Unit Oth 08/19/20 17:07 Ordered Routine Resuscitation Status Routine Resus Stat 08/19/20 16:20 Ordered Medication Orders Acetaminophen (Tylenol Extra Strength) 1,000 mg PO Q6H PRN PRN Reason: Pain Last Admin: 08/19/20 21:46 Dose: 1,000 mg Documented by: BAKARI Acetaminophen/Caffeine (Excedrin Tension Headache) 2 tab PO Q6H PRN PRN Reason: Headache Hydrocodone Bitart/Acetaminophen ([place] 325-5 Mg) 1 - 2 tab PO Q4H PRN PRN Reason: Pain Albuterol (Ventolin Hfa) 0 gm INH Q4H PRN PRN Reason: Shortness of Breath Albuterol (Proventil Neb Soln) 2.5 mg NEB Q4H PRN PRN Reason: Shortness Of Breath/wheezing Hydrochlorothiazide (Hydrochlorothiazide) 12.5 mg PO DAILY [facility] Last Admin: 08/20/20 08:38 Dose: 12.5 mg Documented by: EDSON Hydromorphone HCl (Dilaudid) 0.5 mg IVPUSH Q2H PRN PRN Reason: Pain Last Admin: 08/20/20 07:35 Dose: 0.5 mg Documented by: Admin: 08/20/20 02:31 Dose: 0.5 mg Documented by: Admin: 08/19/20 19:45 Dose: 0.5 mg Documented by: BAKARI Sodium Chloride (Normal Saline) 1,000 mls @ 300 mls/hr IV ASDIRECTED [facility] Last Admin: 08/19/20 16:48 Dose: 300 mls/hr Documented by: BRINDA Lactated Ringer's (Ringers, Lactated) 1,000 mls @ 125 mls/hr IV ASDIRECTED [facility] Last Admin: 08/20/20 04:13 Dose: 125 mls/hr Documented by: Infusion: 08/20/20 03:45 Dose: 125 mls/hr Documented by: Admin: 08/19/20 19:45 Dose: 125 mls/hr Documented by: BAKARI Potassium Chloride 20 meq/Lidocaine HCl 2 ml/ Sodium Chloride 112 mls @ 56 mls/hr IV Q2H [facility] Stop: 08/20/20 15:59 Levothyroxine Sodium (Synthroid) 88 mcg PO ACBREAKFAST [facility] Last Admin: 08/20/20 08:38 Dose: 88 mcg Documented by: EDSON Linaclotide (Linzess) 145 mcg PO ASDIRECTED PRN PRN Reason: IBS Losartan Potassium (Cozaar) 50 mg PO DAILY [facility] Last Admin: 08/20/20 08:38 Dose: 50 mg Documented by: EDSON Ondansetron HCl (Zofran) 4 mg IV Q4H PRN PRN Reason: Nausea/Vomiting Last Admin: 08/20/20 07:35 Dose: 4 mg Documented by: Admin: 08/20/20 03:01 Dose: 4 mg Documented by: Admin: 08/19/20 23:33 Dose: 4 mg Documented by: ONOFRE Pantoprazole Sodium (Protonix Iv) 40 mg IVPUSH Q24H [facility] Last Admin: 08/19/20 18:16 Dose: 40 mg Documented by: EDSON Sodium Chloride (Saline Flush) 10 ml FLUSH ASDIRECTED PRN PRN Reason: Keep Vein Open Assessment/Plan Comment:: ASSESSMENT AND PLAN MECHANICAL SMALL BOWEL OBSTRUCTION-likely partial and that she has been passing some gas and did have a bowel movement earlier today. CT scan does show evidence of a transition point proximal to the ileocecal valve. -N.p.o. -IV fluids for hydration -Pain and nausea medication as needed -Follow-up abdominal x-ray in a.m. -Dr. Stevens to see in a.m. and assume care MAINTENANCE ISSUES -DVT prophylaxis; SCUDs -GI prophylaxis; not indicated -Zamora catheter; not indicated -Nutrition; n.p.o. -Nicotine dependence; not required CODE STATUS-FULL CODE ADMISSION STATUS-patient will be admitted to inpatient status, expect at least a 2 night hospital stay for evaluation and management of problems as outlined above. At the time of this admission I do not reasonably expected evaluation and management of this problem will require more than a 96 hour hospital stay. DISPOSITION-anticipate discharge to home after the hospital stay. PRIMARY CARE PROVIDER-Dr. Haines
[2020-08-20] MEDS: Potassium Chloride 20 MEQ, Lidocaine 1% 2 ML in Sodium Chloride 0.9% 100 ML IV SCH ×3 (10:58→17:01)
[2020-08-20] MEDS ORDERED: Fluticasone Propionate Nasal Spray 16 GM Bottle NASBOTH PRN (11:20)
[2020-08-20] MEDS ORDERED: Gabapentin 300 MG Cap PO PRN (11:20)
[2020-08-20] MEDS: Dextrose 5%-Lactated Ringers 1,000 ML IV SCH (11:38)
[2020-08-20] MEDS: Acetaminophen/HYDROcodone 325-5 MG Tab PO PRN ×2 (11:42→17:00)
[2020-08-20] MEDS: Pantoprazole 40 MG Vial IVPUSH SCH (13:09)
[2020-08-20] MEDS ORDERED: LORazepam 2 MG/ML SDV IVPUSH PRN (18:20)
[2020-08-20] MEDS: Metoclopramide 10 MG/2 ML SDV IVPUSH SCH (19:13)
[2020-08-20] MEDS: Docusate Sodium 100 MG Cap PO SCH (21:55)
[2020-08-21] MEDS: Metoclopramide 10 MG/2 ML SDV IVPUSH SCH ×2 (00:18→06:10)
[2020-08-21] MEDS: Dextrose 5%-Lactated Ringers 1,000 ML IV SCH (04:04)
[2020-08-21] MEDS ORDERED: Iopamidol 612 MG/ML 100 ML Bottle IV STA (04:13)
--- NOTE | 2020-08-21 06:09 | CRLCT ---
INDICATION: Abdominal and back pain. Small-bowel obstruction, follow-up TECHNIQUE: Axial images were obtained from the diaphragm to the pubic symphysis. Reformats were obtained in the coronal and sagittal plane. IV Contrast: 80 cc Isovue-300 Oral Contrast: None COMPARISON: Abdomen and pelvis CT 08/19/2020 FINDINGS: Lower chest: Unremarkable. Liver: Unremarkable. Normal in size and attenuation. No masses. Gallbladder and bile ducts: Status post cholecystectomy. Spleen: Minimal capsular calcification inferiorly without focal lesion. Pancreas: Unremarkable. No mass or inflammation. Adrenal glands: Unremarkable. No nodules. Kidneys: Unremarkable. No masses, stones, or hydronephrosis. Vasculature: Atherosclerosis without abdominal aortic aneurysm. GI tract: The patient is status post gastric bypass as well as sigmoid surgery. There has been interval decompression of the small bowel with no dilated loops demonstrated in today`s examination. Slight wall thickening of the rectosigmoid is demonstrated although similar to the prior exam. Trace free fluid in the deep pelvis. No localizing inflammation. Pelvis: Unremarkable. Bones: Unremarkable for age. IMPRESSION: 1. Status post sigmoid surgery and gastric bypass. Interval decompression of the previously noted small bowel obstruction. Small bowel caliber is within normal limits. 2. Trace free fluid in the deep pelvis. Please note that all CT scans at this facility use dose modulation, iterative reconstruction, and/or weight-based dosing when appropriate to reduce radiation dose to as low as reasonably achievable. Dictated by Harry Cosme MD @ Aug 21 2020 5:53AM Signed by Dr. Harry Cosme @ Aug 21 2020 6:08AM
[2020-08-21 07:50] VITALS: BP 105/71; PULSE 68
[2020-08-21] MEDS: Docusate Sodium 100 MG Cap PO SCH (08:05)
[2020-08-21] MEDS: Losartan 50 MG Tab PO SCH (08:06)
[2020-08-21] MEDS: Levothyroxine 88 MCG Tab PO SCH (08:06)
[2020-08-21] MEDS: Hydrochlorothiazide 12.5 MG Cap PO SCH (08:06)
[2020-08-21] MEDS: Pantoprazole 40 MG Vial IVPUSH SCH (08:12)
[2020-08-21] MEDS ORDERED: Estradiol 0.5 MG Tab PO SCH (09:00)
--- NOTE | 2020-08-22 00:26 | DISCH ---
ADMISSION DIAGNOSES: 1. Partial small bowel obstruction. 2. Abdominal pain. 3. Status post Calli-en-Y gastric bypass surgery. 4. Unspecified surgical malabsorption. 5. B12 deficiency. 6. Hyperlipidemia. 7. Hypothyroidism. 8. Hypertension. 9. History of pancreatitis. DISCHARGE DIAGNOSIS: Partial small bowel obstruction, resolved. HISTORY: Bertha Phoenix is a pleasant female who had a gastric bypass with revision and several partial small bowel obstructions. She presented to the emergency room with severe abdominal pain and CT showed distal ileal obstruction with transition 10 cm proximal to the ileocecal valve and no obstructing mass or inflammatory process. She was admitted on 08/19/2020, and on 08/20/2020, she had an abdominal flat and upright film and she was started on ice chips and sips of clear liquids. Given [place] 5/325 mg for pain and a saline enema 750 mL and Linzess was restarted. On 08/21/2020, her pain was much better. She was having bowel movements and was able to be discharged to home. A CT scan of abdomen was repeated and the obstruction had clearedBrittney Stone with her hospitalization, potassium was replaced with 60 mEq IV for potassium of 3.1 and labs otherwise remained within normal limits. She was able to be discharged to home after tolerating a full liquid diet and receiving dietary instructions. PHYSICAL EXAMINATION: GENERAL: Bertha hPoenix is a pleasant 49-year-old female. VITAL SIGNS: Height is 5 feet 2.99 inches. Weight is 133 pounds. TPR is 97.7, 68, 16. Blood pressure 105/71. HEENT: Negative. NECK: Supple. HEART: Regular rate and rhythm. LUNGS: Clear. ABDOMEN: Soft, flat, very minimally tender. EXTREMITIES: Without peripheral edema. DISPOSITION: Discharged to home. CONDITION: Stable and improving. FOLLOWUP APPOINTMENT: Dr. Nat Xiong PA-C on 08/28/2020 at 9 a.m. HOME MEDICATIONS: [place] 5/325 mg 1 to 2 orally every 4 hours p.r.n. pain #42. To resume home medication and encouraged to take Linzess every day. DIET: Step 2 gastric bypass diet for 2 weeks and low-residue and low-fiber diet senior care. To drink 8 to 10 glasses of water a day. ACTIVITY: As tolerated. Shower/bathing: May shower. DISCHARGE INSTRUCTIONS: Notify provider if any fever, increased pain, nausea or vomiting.
== END 2020-08-21 10:38 | disposition home or self-care (01) | DRG 389 ==
LOC: JP.ED 12:56 → JP.MS 16:17
PROVIDERS: ADMIT Hospitalist; ATTEND Surgery
DX: K56.600 Partial intestinal obstruction, unspecified as to cause (principal); K91.2 Postsurgical malabsorption, not elsewhere classified; E53.8 Deficiency of other specified B group vitamins; E78.5 Hyperlipidemia, unspecified; E03.9 Hypothyroidism, unspecified; I10 Essential (primary) hypertension; G43.909 Migraine, unspecified, not intractable, without status migrainosus; D50.9 Iron deficiency anemia, unspecified; Z96.652 Presence of left artificial knee joint; Z90.89 Acquired absence of other organs; Z79.899 Other long term (current) drug therapy; Z98.84 Bariatric surgery status; Z88.5 Allergy status to narcotic agent; Z79.890 Hormone replacement therapy; Z90.49 Acquired absence of other specified parts of digestive tract; Z90.710 Acquired absence of both cervix and uterus; Z98.890 Other specified postprocedural states; Z87.891 Personal history of nicotine dependence
CPT/HCPCS: 36415; 74021; 74021-26; 74177; 80048; 80053; 81001; 82150; 83690; 83735; 84100; 85025; 85027; 86140; 94762; 96361; 96374; 99221-AI; 99284; 99285-25; A9270-GY; C9113; J1170; J2001; J2060; J2405; J2765; J3480; J7030; J7050; J7120; J7121; Q9967

== ENCOUNTER 2021-05-03 07:37 | Day surgery (SDC) | payer OTHER ==
[~2021-05-03 07:37] MED LIST changes: -Bupivacaine 0.5% 50 ML MDV ONE; -Lidocaine 1% with EPINEPHrine 1:100,000 50 ML MDV ONE; -Meropenem 500 MG SDV ONE; +Midazolam 1 MG/ML 2 ML SDV ONE; +Propofol 200 MG/20 ML SDV ONE; +fentaNYL 100 MCG/2 ML SDV ONE
[2021-05-03] MEDS ORDERED: Dextrose 5%-Lactated Ringers 1,000 ML IV SCH (08:00)
[2021-05-03 11:22] VITALS: BP 113/83; PULSE 60
--- NOTE | 2021-05-12 14:19 | OR ---
DATE OF PROCEDURE: 05/03/2021 SURGEON: Fabricio Stevens MD PREOPERATIVE DIAGNOSIS: Recent rectal bleeding. POSTOPERATIVE DIAGNOSIS: Recent rectal bleeding secondary to internal hemorrhoids. OPERATIVE PROCEDURES: 1. Flexible colonoscopy. 2. Anoscopy with hemorrhoid banding x2. ANESTHESIA: IV sedation. INDICATIONS FOR PROCEDURE: This is a 50-year-old female presenting with some ongoing abrupt rectal bleeding. The plan is to proceed with a colonoscopy with biopsies and a polypectomy as indicated. If the bleeding source appears to be related to hemorrhoids, we will consider hemorrhoid banding just to the level of the hemorrhoids, this appeared to be appropriate procedure. Potential risks including bleeding and perforation and some pain following hemorrhoid banding that might occur were all gone over, and the patient wishes to proceed. DETAILS OF PROCEDURE: The patient was taken to the operating room and placed in a left lateral decubitus position. IV sedation was administered, after which the initial digital rectal exam was performed, it was unremarkable. Colonoscope was then passed into the rectum. Retroflexion revealed 2 engorged hemorrhoidal columns. These appeared to be mixed hemorrhoids with higher aspect being amenable for banding. Otherwise, the scope was then passed over the level of the cecum. The prep was quite good with only a small amount of liquid stool being present. Apart from the hemorrhoids noted, no pathology was seen. There were no areas of diverticulosis. No areas of polyps or other signs of neoplasia. No areas of colitis. The scope was then withdrawn and the colonoscopic procedure then concluded. The flexible anoscope was then passed into the rectum and the 2 hemorrhoid bands were sequentially brought up by suction and the bands applied, and needed to keep the level of the banding above the dentate line to minimize postprocedure pain. Both bands appeared to be seated well, and the procedure then concluded. The patient was taken to the recovery room in satisfactory condition. In general, the patient should have a repeat colonoscopy in 10 years for screening purposes. If she continues to have persistent hemorrhoid bleeding, then at about 3 weeks from this point, surgical consultation could be considered. Otherwise, she will be following up with Nat Xiong for routine bariatric surgical followup. Fabricio Stevens MD /[id number]
== END 2021-05-03 11:35 | disposition home or self-care (01) ==
LOC: JP.SDS 07:37
PROVIDERS: ATTEND Surgery
DX: K64.8 Other hemorrhoids (principal); I10 Essential (primary) hypertension; E78.5 Hyperlipidemia, unspecified; E03.9 Hypothyroidism, unspecified
CPT/HCPCS: 36415; 45378; 46221; 82728; 85025; J2250; J2704; J3010; J7121

== ENCOUNTER 2021-08-17 05:15 | Day surgery (SDC) | payer OTHER ==
[2021-08-17] MEDS ORDERED: Acetaminophen 500 MG Tab PO ONE (05:45)
[2021-08-17] MEDS: Dextrose 5%-Lactated Ringers 1,000 ML IV SCH ×3 (06:40→21:49)
[2021-08-17] MEDS ORDERED: Bupivacaine 0.5%/EPINEPHrine 1:200,000 50 ML MDV ONE (06:48)
[2021-08-17] MEDS ORDERED: Meropenem 500 MG SDV ONE (06:58)
[2021-08-17] MEDS ORDERED: Neostigmine Methylsulfate 1 MG/ML 5 ML Syringe ONE (07:08)
[2021-08-17] MEDS ORDERED: Rocuronium 50 MG/5 ML Vial ONE (07:08)
[2021-08-17] MEDS ORDERED: Succinylcholine 200 MG/10 ML MDV ONE (07:08)
[2021-08-17] MEDS ORDERED: Glycopyrrolate 0.2 MG/ML 5 ML MDV ONE (07:08)
[2021-08-17] MEDS ORDERED: Ondansetron 4 MG/2 ML SDV ONE (07:08)
[2021-08-17] MEDS ORDERED: Propofol 200 MG/20 ML SDV ONE (07:08)
[2021-08-17] MEDS ORDERED: Dexamethasone 4 MG/ML SDV ONE (07:08)
[2021-08-17] MEDS ORDERED: fentaNYL 250 MCG/5 ML SDV ONE ×2 (07:10→07:32)
[2021-08-17] MEDS ORDERED: ceFAZolin 2 GM in Premix Bag 1 BAG IV ONE (07:15)
[2021-08-17] MEDS ORDERED: Ropivacaine 30 ML, dexAMETHasone 8 MG, EPINEPHrine 0.4 MG, Sodium Chloride 0.9% 47.6 ML NERVRT SCH ×4 (07:30)
[2021-08-17] MEDS ORDERED: Ketamine 15 MG in Sodium Chloride 0.9% 19.85 ML IV SCH (07:30)
[2021-08-17] MEDS ORDERED: Ketamine 500 MG/5 ML MDV IV SCH (07:30)
[2021-08-17] MEDS ORDERED: Meropenem 500 MG SDV IRR ONE (07:45)
[2021-08-17] MEDS ORDERED: Bupivacaine 0.5% 50 ML MDV ONE (07:46)
[2021-08-17] MEDS ORDERED: Bupivacaine 0.5% 30 ML SDV ONE (07:46)
[2021-08-17] MEDS ORDERED: Lidocaine 1% with EPINEPHrine 1:100,000 50 ML MDV ONE (07:46)
[2021-08-17] MEDS ORDERED: Ketorolac 30 MG/ML SDV ONE ×3 (07:56→07:59)
[2021-08-17] MEDS ORDERED: Lactated Ringers 1,000 ML ONE (08:01)
[2021-08-17] MEDS ORDERED: Bupivacaine 0.5% 50 ML MDV INJECT ONE (08:12)
[2021-08-17] MEDS ORDERED: Lidocaine 1% with EPINEPHrine 1:100,000 50 ML MDV INJECT ONE (08:12)
[2021-08-17] MEDS ORDERED: Sugammadex Sodium 200 MG/2 ML VIAL ONE (08:29)
[2021-08-17] MEDS: Ondansetron 4 MG/2 ML SDV IVPUSH PRN ×2 (09:48→14:20)
[2021-08-17] MEDS ORDERED: Benzocaine/Cetylpyridinium/Menthol Lozenge MUCMEM PRN (09:51)
[2021-08-17] MEDS ORDERED: Albuterol/Ipratropium 3.0-0.5 MG/3 ML Neb Soln INH PRN (09:56)
[2021-08-17] MEDS ORDERED: HYDROmorphone 1 MG/ML Syringe IV PRN (10:18)
[2021-08-17] MEDS ORDERED: HYDROmorphone 0.5 MG/0.5 ML Syringe IVPUSH PRN (10:18)
[2021-08-17] MEDS ORDERED: HYDROmorphone 2 MG Tab PO PRN (10:19)
[2021-08-17] MEDS: Albuterol/Ipratropium 3.0-0.5 MG/3 ML Neb Soln INH SCH ×3 (10:50→22:13)
[2021-08-17] MEDS: Estradiol 0.5 MG Tab PO SCH (11:32)
[2021-08-17] MEDS: Levothyroxine 100 MCG, Levothyroxine 25 MCG PO SCH ×2 (11:32)
[2021-08-17] MEDS: Acetaminophen 500 MG Tab PO SCH ×3 (11:33→23:08)
[2021-08-17] MEDS: Metoprolol Succinate 50 MG Tab.ER PO SCH (11:33)
[2021-08-17] MEDS ORDERED: Metoclopramide 10 MG/2 ML SDV IV PRN (13:10)
[2021-08-17] MEDS ORDERED: Scopolamine 1.5 MG Transdermal Patch TOP ONE (13:10)
[2021-08-17] MEDS: ceFAZolin 1 GM in Premix Bag 1 BAG IV SCH ×2 (14:16→22:13)
[2021-08-17] MEDS: traMADol 50 MG Tab PO PRN (14:51)
[2021-08-17] MEDS: Celecoxib 200 MG Cap PO SCH (22:13)
[2021-08-18] MEDS: traMADol 50 MG Tab PO PRN ×2 (03:54→10:32)
[2021-08-18] MEDS: ceFAZolin 1 GM in Premix Bag 1 BAG IV SCH (06:19)
[2021-08-18] MEDS: Acetaminophen 500 MG Tab PO SCH (06:20)
[2021-08-18] MEDS: Levothyroxine 100 MCG, Levothyroxine 25 MCG PO SCH ×2 (07:58)
[2021-08-18] MEDS: Albuterol/Ipratropium 3.0-0.5 MG/3 ML Neb Soln INH SCH (07:59)
[2021-08-18] MEDS: Celecoxib 200 MG Cap PO SCH (08:31)
[2021-08-18] MEDS: Metoprolol Succinate 50 MG Tab.ER PO SCH (08:31)
[2021-08-18] MEDS: Estradiol 0.5 MG Tab PO SCH (08:31)
[2021-08-18 08:32] VITALS: BP 131/67; PULSE 74
[2021-08-18] MEDS ORDERED: VERIFY SCOP PATCH TOP SCH (09:00)
[2021-08-18] MEDS ORDERED: HCTZ PO SCH (09:00)
[2021-08-18] MEDS ORDERED: VALSARTAN PO SCH (09:00)
[2021-08-18] MEDS ORDERED: Ondansetron 4 MG Tab.DIS PO PRN (10:30)
--- NOTE | 2021-08-18 12:07 | DISCH ---
ADMISSION DIAGNOSIS: Recurrent incarcerated incisional hernia. DISCHARGE DIAGNOSES: Laparotomy, exploration of left lateral abdomen with: 1. Repair of recurrent incarcerated incisional hernia with mesh (extra-large plug). 2. Excision of a portion of left inguinal hernia. POSTOPERATIVE DIAGNOSES: 1. Recurrent incarcerated incisional hernia. 2. Left inguinal hernia at risk for some entrapment. Date of procedure: 08/17/2021. Surgeon: Fabricio Stevens MD. HISTORY: Bertha is a pleasant 50-year-old female with a recurrent incarcerated incisional hernia. After preoperative evaluation and discussion of possible risks and possible complications she wished to proceed with surgical procedure. HOSPITAL COURSE: Bertha had her surgery on 08/17/2021. She had no operative complications, and on postoperative day #1, she was able to be discharged to home with pain controlled, activity good, oral intake good, vital signs stable, and she had no other concerns or questions. PHYSICAL EXAMINATION: GENERAL: Bertha Phoenix is a pleasant 50-year-old female. VITAL SIGNS: Height is 5 feet 3 inches, weight 129 pounds. TPR is 97.4, 50, 16. Blood pressure 111/67. HEENT: Negative. NECK: Supple. HEART: Regular rate and rhythm. LUNGS: Clear. ABDOMEN: Dressings dry and intact. Abdominal binder is on. EXTREMITIES: Without peripheral edema. DISPOSITION: Discharged to home. CONDITION: Stable and improving. FOLLOWUP: Followup appointment with Fabricio Stevens MD on 09/01/2021 at 9 a.m. HOME MEDICATIONS: 1. Tramadol 50 mg q.6 hours p.r.n. pain, #18. 2. Celebrex 200 mg p.o. b.i.d., #28. 3. Tylenol Extra Strength 1000 mg q.6 hours p.r.n. pain. She is to resume all her home medications. DIET: Usual diet as tolerated. Drink 8 to 10 glasses of water a day. ACTIVITY: No lifting greater than 10 pounds for 6 weeks. OTHER ACTIVITY: Do not drive for 1 week or within 8 hours of taking tramadol. Shower/bathing: May shower. Keep operative site clean and dry. Wear abdominal binder for 6 weeks. Notify provider if any fever, increased pain, swelling, redness, drainage, nausea, vomiting. OTHER SPECIAL INSTRUCTIONS: Use incentive spirometer 10 times every hour while awake for 1 week. /[id number]
--- NOTE | 2021-08-18 15:37 | OR ---
DATE OF PROCEDURE: 08/17/2021 SURGEON: Fabricio Stevens MD PREOPERATIVE DIAGNOSIS: Recurrent incisional hernia. POSTOPERATIVE DIAGNOSES: 1. Recurrent incarcerated incisional hernia. 2. 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 PROCEDURE PERFORMED: Limited exploratory laparotomy of left lateral lower abdomen with: 1. Repair of recurrent incarcerated incisional hernia with mesh (43226, 97010). 2. Excision of portion of left iliohypogastric nerve (11670). ANESTHESIA: General. PROPERTY INSURANCE INSPECTOR: Nat Xiong PA-C INDICATIONS FOR PROCEDURE: This is a 50-year-old female presenting with an incisional hernia located lateral to some previously-placed mesh in a low transverse Pfannenstiel-type incision. The plan is to repair this with mesh-type technique. Potential risks of the procedure including bleeding, infection, injury to underlying viscera, problems with the hernia becoming recurrent or infected, problems with chronic pain following the repair were all reviewed, and the patient wishes to proceed. DETAILS OF PROCEDURE: The patient was taken to the operating room and placed in a supine position. After general endotracheal anesthesia was induced, a Zamora catheter was inserted and the abdomen prepped and draped. In the left lateral lower abdomen, a transverse incision was made at the premarked location and carried down through the skin and subcutaneous tissue and through the external oblique aponeurosis. To that plane posterior to that, the hernia had prolapsed into that space and contained some incarcerated preperitoneal fat and probably some urinary bladder flap. Bladder was dissected free from the incarcerated aspect and reduced internally. During the course of dissection, the iliohypogastric nerve and probably some branches of it were encountered, and these were excised and sent as a separate specimen to minimize chances of postoperative neuropathic pain. An extra-large mesh plug was then placed into the defect and affixed circumferentially on the side of the layers which would be consistent with the internal oblique and transversus abdominis muscle. Once these were in place, those layers were closed with a running #1 Vicryl stitch. Flat portion of the mesh plug system was fashioned so it lay over that plane, and over that, then the external oblique aponeurosis approximated with a running 2-0 Vicryl stitch, the subcutaneous tissue with some 4-0 Vicryl stitch, and the skin with a 4-0 Vicryl subcuticular stitch and surgical glue. Prior to closure, the wound had been irrigated with antibiotic-containing saline solution and the area anesthetized with 1% lidocaine mixed with Marcaine and the procedure concluded. The patient was taken to the recovery room in satisfactory condition. Physician physician assistant primary care, Nat Xiong, played an essential role in assisting in this case, helping to position the patient, retract structures as needed, as well as suturing and cutting sutures when indicated. Her presence improved the patient's safety and decreased the operative time. Fabricio Stevens MD /[id number]
== END 2021-08-18 11:31 | disposition home or self-care (01) ==
LOC: JP.SDS 05:15 → JP.MS 09:28 → JP.SDS 08-18 11:31
PROVIDERS: ATTEND Surgery
DX: K43.0 Incisional hernia with obstruction, without gangrene (principal); E53.8 Deficiency of other specified B group vitamins; D53.9 Nutritional anemia, unspecified; Z79.899 Other long term (current) drug therapy; E89.0 Postprocedural hypothyroidism; Z88.8 Allergy status to other drugs, medicaments and biological substances; Z88.5 Allergy status to narcotic agent; Z98.84 Bariatric surgery status
CPT/HCPCS: 36415; 49566; 49568; 84100; 94640; 94762; A9270; C1781; J0171; J0330; J0690; J1100; J1885; J2020; J2185; J2405; J2704; J2710; J2765; J2795; J3010; J3490; J7120; J7121; J7620-GY

== ENCOUNTER 2021-10-21 08:40 | Day surgery (SDC) | payer OTHER ==
[~2021-10-21 08:40] MED LIST changes: +Bupivacaine 0.5%/EPINEPHrine 1:200,000 50 ML MDV ONE; +Dexamethasone 4 MG/ML SDV ONE; +Glycopyrrolate 0.2 MG/ML 5 ML MDV ONE; +Meropenem 500 MG SDV ONE; -Midazolam 1 MG/ML 2 ML SDV ONE; +Neostigmine Methylsulfate 1 MG/ML 5 ML Syringe ONE; +Ondansetron 4 MG/2 ML SDV ONE; +Rocuronium 50 MG/5 ML Vial ONE; +Succinylcholine 200 MG/10 ML MDV ONE; -fentaNYL 100 MCG/2 ML SDV ONE; +fentaNYL 250 MCG/5 ML SDV ONE
[2021-10-21] MEDS ORDERED: Acetaminophen 500 MG Tab PO ONE (09:00)
[2021-10-21] MEDS ORDERED: Dextrose 5%-Lactated Ringers 1,000 ML IV SCH ×2 (09:30→14:30)
[2021-10-21 09:37] LABS: CORONAVIRUS COVID-19 NAA NEGATIVE (NEGATIVE)
[2021-10-21] MEDS ORDERED: Scopolamine 1.5 MG Transdermal Patch TRDERM PRN (09:45)
[2021-10-21] MEDS ORDERED: ceFAZolin 2 GM in Sodium Chloride 0.9% 100 ML IV ONE (10:30)
[2021-10-21] MEDS ORDERED: Ketorolac 30 MG/ML SDV ONE ×2 (11:35→12:54)
[2021-10-21] MEDS ORDERED: fentaNYL 250 MCG/5 ML SDV ONE (12:04)
[2021-10-21] MEDS ORDERED: hydrOXYzine HCL 100 MG/2 ML SDV IM ONE (13:15)
[2021-10-21] MEDS ORDERED: hydrOXYzine HCL 100 MG/2 ML SDV IM PRN (14:24)
[2021-10-21] MEDS ORDERED: Ondansetron 4 MG/2 ML SDV IVPUSH PRN (14:25)
[2021-10-21] MEDS: Acetaminophen/HYDROcodone 325-5 MG Tab PO PRN ×2 (14:47→20:47)
[2021-10-21] MEDS ORDERED: Morphine 4 MG/ML Syringe IVPUSH PRN (15:00)
[2021-10-21] MEDS ORDERED: Morphine 2 MG/ML SYRINGE IVPUSH PRN (15:00)
[2021-10-21] MEDS: Acetaminophen 325 MG Tab PO SCH ×2 (15:21→23:20)
[2021-10-21] MEDS: Hydrochlorothiazide 12.5 MG Cap PO SCH (15:21)
[2021-10-21] MEDS: Losartan 50 MG Tab PO SCH (15:21)
[2021-10-21] MEDS: ceFAZolin 1 GM in Premix Bag 1 BAG IV SCH (17:14)
[2021-10-21] MEDS: Cyclobenzaprine 10 MG Tab PO PRN (19:25)
[2021-10-21] MEDS: Docusate Sodium 100 MG Cap PO SCH (20:47)
[2021-10-22] MEDS: Acetaminophen/HYDROcodone 325-5 MG Tab PO PRN ×2 (01:07→07:59)
[2021-10-22] MEDS: ceFAZolin 1 GM in Premix Bag 1 BAG IV SCH ×2 (02:44→09:20)
[2021-10-22] MEDS: Acetaminophen 325 MG Tab PO SCH ×2 (03:54→09:20)
[2021-10-22] MEDS: Cyclobenzaprine 10 MG Tab PO PRN (03:54)
[2021-10-22] MEDS ORDERED: Levothyroxine 100 MCG, Levothyroxine 25 MCG PO SCH ×2 (07:30)
[2021-10-22 07:57] VITALS: BP 114/70; PULSE 68
[2021-10-22] MEDS: Losartan 50 MG Tab PO SCH (08:00)
[2021-10-22] MEDS: Docusate Sodium 100 MG Cap PO SCH (08:00)
[2021-10-22] MEDS: Hydrochlorothiazide 12.5 MG Cap PO SCH (08:01)
[2021-10-22] MEDS ORDERED: Estradiol 0.5 MG Tab PO SCH (09:00)
[2021-10-22] MEDS ORDERED: Metoprolol Succinate 25 MG Tab.ER PO SCH (09:00)
[2021-10-22] MEDS ORDERED: SCOPOLAMINE PATCH CHECK TOP SCH (09:00)
--- NOTE | 2021-10-23 20:51 | DISCH ---
ADMISSION DIAGNOSIS: Recurrent incisional hernia. DISCHARGE DIAGNOSES: Diagnostic laparoscopy with lysis of adhesions: 1. Repair of recurrent incarcerated incisional hernia and extensive intraabdominal adhesions. 2. Placement of Interceed mesh. POSTOPERATIVE DIAGNOSES: 1. Recurrent incarcerated incisional hernia. 2. Extensive intraabdominal adhesions. HISTORY: Bertha Phoenix had a recurrent incisional hernia. After preoperative evaluation and discussion of possible risks and possible complications, she wished to proceed with surgical procedure. HOSPITAL COURSE: Jonelle had her surgery on 10/21/2021. She was able to be discharged on 10/22/2021 without complications. PHYSICAL EXAMINATION: GENERAL: Bertha is a pleasant 50-year-old female. VITAL SIGNS: Height is 5 feet 2 inches, weight is 123 pounds. TPR is 98.9, 68, 16. Blood pressure 114/70. HEENT: Negative. NECK: Supple. HEART: Regular rate and rhythm. LUNGS: Clear. ABDOMEN: Dressings dry and intact. Pressure dressing over left hernia site. EXTREMITIES: Without peripheral edema. DISPOSITION: Discharged to home. CONDITION: Stable and improving home. FOLLOWUP APPOINTMENT: With Fabricio Stevens MD on 11/03/2021 at 11 a.m. HOME MEDICATIONS: 1. Randolph 5/325 mg, one q.4 hours p.r.n. pain, #18. 2. Flexeril 10 mg q.8 hours p.r.n. muscle spasms, #30. 3. Celebrex 200 mg p.o. b.i.d., #28. She is to resume her home medication. DIET: Usual diet as tolerated. Drink 8 to 10 glasses of water a day. ACTIVITY: No lifting greater than 10 pounds. Driving: Do not drive for 1 week or while on narcotic pain medication. Shower/bathing: May shower. Keep operative site clean and dry. Wound incision care, wear abdominal binder with pressure dressing over hernia site until first postop appointment. Notify provider if any fever, increased pain, swelling, redness, drainage, nausea, or vomiting. SPECIAL INSTRUCTIONS: Use incentive spirometer 10 times every hour while awake for 1 week. /[id number]
--- NOTE | 2021-10-26 12:15 | OR ---
DATE OF PROCEDURE: 10/21/2021 SURGEON: Fabricio Stevens MD PREOPERATIVE DIAGNOSIS: Recurrent incisional hernia. POSTOPERATIVE DIAGNOSES: 1. Recurrent incarcerated incisional hernia. 2. Extensive intraabdominal adhesions. OPERATIVE PROCEDURE: Diagnostic laparoscopy with lysis of adhesions and: 1. Repair of recurrent incarcerated incisional hernia with mesh (62348). 2. Placement of Interceed mesh to limit recurrent adhesion formation between pelvic and abdominal wall and underlying viscera (39683). ANESTHESIA: General. RESIDENTIAL THERAPIST: Nat Xiong PA-C INDICATIONS FOR PROCEDURE: This is a 50-year-old presenting with recurrent incisional hernia located in the left lower quadrant which is in the lateral aspect of Pfannenstiel- type incision. The plan was to proceed with a laparoscopic and if necessary open repair of this with mesh. Potential risks including bleeding, infection, injury to underlying viscera, problems with developing chronic pain following the procedure, mesh becoming infected or the hernia recurring were all gone over and the patient wishes to proceed. DETAILS OF PROCEDURE: The patient was taken to the operating room and placed in a supine position. After general endotracheal anesthesia was induced, a Zamora catheter was inserted and the abdomen prepped and draped. In the right lateral abdomen, a transverse incision was made and the peritoneal cavity entered under direct vision with an Optiview trocar, inflated to 15 mmHg pressure with CO2. Laparoscope was reinserted. No underlying trocar insertion site injuries were seen. Transversus abdominis plane blocks were then placed both on the right side and a 5-mm trocar placed in the right lower quadrant and the right upper quadrant. The patient had quite a bit in the way of adhesions between the omentum and the anterior abdominal wall. Fortunately, none of these involved bowel at this point. These were taken down with Harmonic scalpel. The area of herniation was identified. The lateral aspect of the previous repair appeared to be intact with a mesh plug being in place which had maintained a fairly solid fascial repair at that level. push out quite a bit and the anterior half of this mesh plug was then removed, so as to decrease the amount of outward presentation postoperatively, but still leave that portion of the repair intact. Medial to this was the area of recurrence. This area of recurrence likewise contained some incarcerated omentum which was taken down with Harmonic scalpel and its portion of the peritoneum then excised. The fascia at the site of the hernia was then closed with a series of 0 Vicryl sutures, and upon the completion of that, a 15.[address] mesh with the balloon positioning system was selected and this was placed in antibiotic-containing saline solution intra-abdominally and the balloon inflation catheter was then pulled up through a small stab wound with the suture passer in the more or less center of the area of herniation. The mesh was encircled and fixed circumferentially with absorbable tacking screws and the balloon then deflated and withdrawn. Good fixation of the mesh was noted in all areas. To limit recurrent adhesion formation, Interceed mesh was then placed underneath the newly placed mesh, and at that point, the abdomen was irrigated with additional antibiotic-containing saline solution and the trocars were then sequentially removed and the peritoneal cavity deflated. The fascia at the 12 mm site was closed with 0 Vicryl stitch and the skin at each incision with 4-0 Vicryl stitch. Incision was anesthetized with 1% lidocaine mixed with Marcaine as well. The patient was taken to the recovery room in satisfactory condition. Physician employment legal assistant, Nat Xiong played an essential role in assisting in this case, helping to position the patient, retract structures as needed as well as suturing and cutting sutures when indicated. Her presence improved patient safety and decreased the operative time. Fabricio Stevens MD /[id number]
== END 2021-10-22 11:17 | disposition home or self-care (01) ==
LOC: JP.SDS 08:40 → JP.MS 13:15 → JP.SDS 10-22 11:17
PROVIDERS: ATTEND Surgery
DX: K43.0 Incisional hernia with obstruction, without gangrene (principal); K66.0 Peritoneal adhesions (postprocedural) (postinfection); Z79.899 Other long term (current) drug therapy; Z01.812 Encounter for preprocedural laboratory examination; Z20.822 Contact with and (suspected) exposure to COVID-19
CPT/HCPCS: 0241U; 36415; 49657; 80048; 83735; 84100; 85027; 88302; A9270; C1781; J0171; J0330; J0690; J1100; J1885; J2020; J2185; J2270; J2405; J2704; J2710; J2795; J3010; J3410; J3490; J7121

== ENCOUNTER 2021-11-09 07:02 | Day surgery (SDC) | payer OTHER ==
[2021-11-09] MEDS ORDERED: fentaNYL 100 MCG/2 ML SDV ONE (07:15)
[2021-11-09] MEDS ORDERED: Midazolam 1 MG/ML 2 ML SDV ONE (07:15)
[2021-11-09] MEDS ORDERED: Propofol 200 MG/20 ML SDV ONE (07:15)
[2021-11-09] MEDS ORDERED: Dextrose 5%-Lactated Ringers 1,000 ML IV SCH (07:30)
[2021-11-09] MEDS ORDERED: Celecoxib 200 MG Cap PO ONE (10:10)
[2021-11-09 10:40] VITALS: BP 141/84; PULSE 90
--- NOTE | 2021-11-17 11:12 | OR ---
DATE OF PROCEDURE: 11/09/2021 SURGEON: Fabricio Stevens MD PREOPERATIVE DIAGNOSIS: History of rectal bleeding. POSTOPERATIVE DIAGNOSIS: Normal colonoscopy other than for engorged hemorrhoids. OPERATIVE PROCEDURE: 1. Flexible colonoscopy (16753). 2. Hemorrhoid banding x2 (61405). ANESTHESIA: IV sedation. INDICATION FOR PROCEDURE: This is a 50-year-old female, presenting with history of some recent rectal bleeding and this most likely related to hemorrhoids. The patient is status post a rectosigmoid resection and diverticular disease in the past. Plan is to proceed with a flexible colonoscopy with biopsies and/or polypectomy as indicated, and if findings are consistent with hemorrhoids, appropriate to place bands, at least 2 of these will be banded if 2 sites are identified that are problematic. Potential risks of the procedure including bleeding and perforation, some pain from hemorrhoid banding, some continued bleeding after hemorrhoid banding procedure were all reviewed, and the patient wishes to proceed. DETAILS OF PROCEDURE: The patient was taken to the operative room, placed in a left lateral decubitus position. IV sedation was administered after which the initial digital rectal exam was performed and was unremarkable. Colonoscope was then passed into the rectum with retroflexion revealing some excoriated hemorrhoidal columns. These were more or less mixed hemorrhoids with significant internal hemorrhoid component likely the patient's bleeding. Scope was eventually passed to the level of the cecum. Otherwise, there were no abnormalities noted. There were no diverticula and no areas of colitis. No polyps or other signs of neoplasia. Scope was withdrawn and the above findings reconfirmed. The hemorrhoid banding apparatus was then fixed to a gastroscope. This was placed in the rectum and 2 most engorged hemorrhoid columns were then banded with 2 bands placed on each side, and the procedure was then concluded. The patient had no complications and tolerated the procedure well. The patient will follow up with Dr. Stevens in roughly 1 month. If there is any recurrent bleeding, additional hemorrhoid banding could be considered. Fabricio Stevens MD /[id number]
== END 2021-11-09 10:50 | disposition home or self-care (01) ==
LOC: JP.SDS 07:02
PROVIDERS: ATTEND Surgery
DX: K62.5 Hemorrhage of anus and rectum (principal); K64.8 Other hemorrhoids; Z88.5 Allergy status to narcotic agent
CPT/HCPCS: 45378; 46221; A9270; J2250; J2704; J3010; J7121

== ENCOUNTER 2022-10-21 20:55 | Emergency (ER) | payer OTHER ==
[2022-10-21 21:48] VITALS: BP 142/74; PULSE 78
== END 2022-10-21 23:00 | disposition home or self-care (01) ==
LOC: JP.ED 20:55
DX: S83.92XA Sprain of unspecified site of left knee, initial encounter (principal); I10 Essential (primary) hypertension; E03.9 Hypothyroidism, unspecified; Z88.5 Allergy status to narcotic agent; Z79.899 Other long term (current) drug therapy
CPT/HCPCS: 73562-26-LT; 73562-LT; 99283

== ENCOUNTER 2023-07-29 19:35 | Inpatient (IN) | payer OTHER ==
[2023-07-29] MEDS ORDERED: Naloxone 0.4 MG/ML SDV IVPUSH PRN (20:20)
[2023-07-29] MEDS ORDERED: HYDROmorphone 1 MG/ML Syringe IVPUSH ONE (20:20)
[2023-07-29] MEDS ORDERED: Ondansetron 4 MG/2 ML SDV IVPUSH ONE (20:20)
[2023-07-29] MEDS ORDERED: diphenhydrAMINE 50 MG/ML SDV IVPUSH ONE (20:22)
[2023-07-29 20:24] LABS: BASOPHILS ABSOLUTE AUTO 0.07 K/uL (0.00-0.10); BASOPHILS PERCENT AUTO 0.6 % (0.1-1.3); EOSINOPHILS ABSOLUTE AUTO 0.23 K/uL (0.00-0.40); EOSINOPHILS PERCENT AUTO 1.9 % (0.0-5.4); HEMATOCRIT 33.3 % (34.3-46.0); HEMOGLOBIN 10.6 g/dL (11.2-15.5); IMMATURE GRAN ABSOLUTE AUTO 0.04 K/uL (0.00-0.23); IMMATURE GRAN PERCENT AUTO 0.3 % (0.0-0.7); LYMPHOCYTES ABSOLUTE AUTO 3.29 K/uL (0.8-3.3); LYMPHOCYTES PERCENT AUTO 27.1 % (11.4-47.7); MEAN CORPUSCULAR HGB CONC 31.8 g/dL (31.6-35.5); MEAN CORPUSCULAR VOLUME 94.3 fL (81.4-99.0); MONOCYTES ABSOLUTE AUTO 0.89 K/uL (0.20-0.90); MONOCYTES PERCENT AUTO 7.3 % (3.3-12.6); NEUTROPHILS ABSOLUTE AUTO 7.61 K/uL (1.0-7.6); NEUTROPHILS PERCENT AUTO 62.8 % (40.0-78.1); PLATELET COUNT,PLT 659 K/uL (130-375); RED BLOOD CELL COUNT 3.53 M/uL (3.77-5.24); WHITE BLOOD CELL COUNT,WBC 12.1 K/uL (3.2-11.0)
[2023-07-29] MEDS ORDERED: Sodium Chloride 0.9% 1,000 ML IV SCH (20:30)
[2023-07-29 20:46] LABS: A/G RATIO 0.8 (1.2-2.2); ALANINE AMINOTRANSFERASE,ALT 35 U/L (12-78); ALBUMIN 3.1 g/dL (3.4-5.0); ALKALINE PHOSPHATASE 88 U/L (46-116); ANION GAP 9.5 mmol/L (5.0-14.0); ASPARTATE AMNIOTRANSFERASE,AST 30 U/L (15-37); BILIRUBIN TOTAL 0.3 mg/dL (0.2-1.0); BLOOD UREA NITROGEN,BUN 15 mg/dL (7-18); CALCIUM 8.6 mg/dL (8.5-10.1); CARBON DIOXIDE,CO2 25 mmol/L (21-32); CHLORIDE,CL 107 mmol/L (100-108); CREATININE 0.6 mg/dL (0.6-1.0); ESTIMATED GFR 107 mL/min (>60); GLUCOSE RANDOM 99 mg/dL (74-106); POTASSIUM,K 4.1 mmol/L (3.6-5.2); PROTEIN TOTAL,TP 6.8 g/dL (6.4-8.2); SODIUM,NA 141 mmol/L (140-148)
[2023-07-29] MEDS ORDERED: Sodium Chloride 0.9% 10 ML Syringe FLUSH ONE (20:55)
[2023-07-29] MEDS ORDERED: Iopamidol 612 MG/ML 100 ML Bottle IV SCH (21:00)
[2023-07-29] MEDS ORDERED: Sodium Chloride 0.9% 50 ML IV SCH (21:00)
[2023-07-29 21:23] LABS: APPEARANCE,URINE CLEAR (CLEAR); BILIRUBIN,URINE NEGATIVE (NEGATIVE); COLOR,URINE YELLOW (YELLOW); GLUCOSE,URINE NEGATIVE (NEGATIVE); KETONES,URINE NEGATIVE (NEGATIVE); LEUKOCYTE ESTERASE,URINE NEGATIVE (NEGATIVE); NITRITE,URINE NEGATIVE (NEGATIVE); OCCULT BLOOD,URINE NEGATIVE (NEGATIVE); PH,URINE 5.5 (5.0-8.0); PROTEIN,URINE NEGATIVE (NEGATIVE); UROBILINOGEN,URINE 0.2 EU/dL (0.2-1.0)
[2023-07-29 21:24] LABS: AMORPHOUS SEDIMENT,URINE NOT SEEN; BACTERIA,URINE NOT SEEN; EPITHELIAL CELLS,URINE NOT SEEN; MUCUS,URINE NOT SEEN; RBC,URINE NOT SEEN (0-5); WBC,URINE NOT SEEN (0-5)
[2023-07-30] MEDS ORDERED: LORazepam 2 MG/ML SDV IV PRN (00:14)
[2023-07-30] MEDS ORDERED: Fluticasone NASAL Spray 16 GM Bottle NASBOTH PRN (00:14)
[2023-07-30] MEDS ORDERED: HYDROmorphone/Normal Saline 6 MG/30 ML PCA Vial IV PRN (00:14)
[2023-07-30] MEDS ORDERED: Naloxone 0.4 MG/ML SDV IVPUSH PRN ×2 (00:14)
[2023-07-30] MEDS ORDERED: Ondansetron 4 MG/2 ML SDV IVPUSH PRN (00:14)
[2023-07-30] MEDS: Ondansetron 4 MG/2 ML SDV IV PRN ×3 (00:59→14:00)
[2023-07-30] MEDS: Pantoprazole 40 MG Vial IV SCH ×2 (01:05→21:39)
[2023-07-30] MEDS ORDERED: diphenhydrAMINE 25 MG Cap PO PRN (04:22)
[2023-07-30] MEDS ORDERED: diphenhydrAMINE 50 MG/ML SDV IVPUSH PRN (04:22)
[2023-07-30 04:32] LABS: BASOPHILS ABSOLUTE AUTO 0.08 K/uL (0.00-0.10); BASOPHILS PERCENT AUTO 0.6 % (0.1-1.3); EOSINOPHILS PERCENT AUTO 2.4 % (0.0-5.4); HEMATOCRIT 30.1 % (34.3-46.0); HEMOGLOBIN 9.6 g/dL (11.2-15.5); IMMATURE GRAN ABSOLUTE AUTO 0.03 K/uL (0.00-0.23); IMMATURE GRAN PERCENT AUTO 0.2 % (0.0-0.7); LYMPHOCYTES ABSOLUTE AUTO 5.39 K/uL (0.8-3.3); LYMPHOCYTES PERCENT AUTO 42.2 % (11.4-47.7); MEAN CORPUSCULAR HEMOGLOBIN 30.2 pg (31.6-35.5); MEAN CORPUSCULAR HGB CONC 31.9 g/dL (31.6-35.5); MEAN CORPUSCULAR VOLUME 94.7 fL (81.4-99.0); MONOCYTES ABSOLUTE AUTO 1.07 K/uL (0.20-0.90); MONOCYTES PERCENT AUTO 8.4 % (3.3-12.6); NEUTROPHILS ABSOLUTE AUTO 5.89 K/uL (1.0-7.6); NEUTROPHILS PERCENT AUTO 46.2 % (40.0-78.1); PLATELET COUNT,PLT 543 K/uL (130-375); RED BLOOD CELL COUNT 3.18 M/uL (3.77-5.24); WHITE BLOOD CELL COUNT,WBC 12.8 K/uL (3.2-11.0)
[2023-07-30 04:51] LABS: CALCIUM 7.9 mg/dL (8.5-10.1); CREATININE 0.5 mg/dL (0.6-1.0); EST CRCL DRUG DOSING (CG) 107.64 mL/min; POTASSIUM,K 3.3 mmol/L (3.6-5.2)
[2023-07-30 05:10] LABS: ANION GAP 10.3 mmol/L (5.0-14.0)
[2023-07-30] MEDS: Dextrose 5%-Lactated Ringers 1,000 ML IV SCH ×3 (07:00→21:49)
[2023-07-30] MEDS: Levothyroxine 25 MCG Tab PO SCH (07:58)
[2023-07-30] MEDS: Acetaminophen 325 MG Tab PO PRN (07:59)
[2023-07-30] MEDS: Levothyroxine 100 MCG Tab PO SCH (07:59)
[2023-07-30] MEDS: Losartan 50 MG Tab PO SCH (07:59)
[2023-07-30] MEDS: Metoprolol Succinate 25 MG Tab.ER PO SCH (08:00)
[2023-07-30] MEDS: Hydrochlorothiazide 12.5 MG Cap PO SCH (08:00)
[2023-07-30] MEDS: Potassium Phos in 0.9 % NaCl 15 MMOL in Premix Bag 1 BAG IV SCH ×6 (09:16→14:00)
[2023-07-30] MEDS ORDERED: Sodium Phosphate,Monobasic/Sodium Phosphate,Dibasic Enema 133 ML Bottle RECTAL ONE ×2 (09:30→21:00)
[2023-07-30] MEDS ORDERED: Acetaminophen/HYDROcodone 325-5 MG Tab PO PRN (09:44)
[2023-07-30] MEDS ORDERED: Metoclopramide 10 MG/2 ML SDV IV PRN (17:24)
[2023-07-31 04:31] LABS: BASOPHILS ABSOLUTE AUTO 0.06 K/uL (0.00-0.10); BASOPHILS PERCENT AUTO 0.7 % (0.1-1.3); EOSINOPHILS PERCENT AUTO 3.7 % (0.0-5.4); HEMOGLOBIN 9.9 g/dL (11.2-15.5); IMMATURE GRAN PERCENT AUTO 0.1 % (0.0-0.7); LYMPHOCYTES ABSOLUTE AUTO 3.93 K/uL (0.8-3.3); LYMPHOCYTES PERCENT AUTO 48.8 % (11.4-47.7); MEAN CORPUSCULAR HEMOGLOBIN 29.6 pg (31.6-35.5); MEAN CORPUSCULAR HGB CONC 31.9 g/dL (31.6-35.5); MEAN CORPUSCULAR VOLUME 92.5 fL (81.4-99.0); MONOCYTES ABSOLUTE AUTO 0.86 K/uL (0.20-0.90); MONOCYTES PERCENT AUTO 10.7 % (3.3-12.6); PLATELET COUNT,PLT 528 K/uL (130-375); RED BLOOD CELL COUNT 3.35 M/uL (3.77-5.24); WHITE BLOOD CELL COUNT,WBC 8.1 K/uL (3.2-11.0)
[2023-07-31 05:04] LABS: A/G RATIO 0.8 (1.2-2.2); ALANINE AMINOTRANSFERASE,ALT 27 U/L (12-78); ALBUMIN 2.4 g/dL (3.4-5.0); ALKALINE PHOSPHATASE 70 U/L (46-116); ASPARTATE AMNIOTRANSFERASE,AST 24 U/L (15-37); BILIRUBIN TOTAL 0.2 mg/dL (0.2-1.0); BLOOD UREA NITROGEN,BUN 3 mg/dL (7-18); CALCIUM 8.2 mg/dL (8.5-10.1); CARBON DIOXIDE,CO2 30 mmol/L (21-32); CHLORIDE,CL 109 mmol/L (100-108); CREATININE 0.5 mg/dL (0.6-1.0); EST CRCL DRUG DOSING (CG) 107.64 mL/min; ESTIMATED GFR 112 mL/min (>60); GLUCOSE RANDOM 101 mg/dL (74-106); MAGNESIUM 1.7 mg/dL (1.8-2.4); PHOSPHORUS 3.2 mg/dL (2.5-4.9); POTASSIUM,K 3.6 mmol/L (3.6-5.2); PROTEIN TOTAL,TP 5.4 g/dL (6.4-8.2); SODIUM,NA 144 mmol/L (140-148); TSH ULTRASENSITIVE 0.049 uIU/mL (0.358-3.740)
[2023-07-31 05:07] LABS: IMMATURE GRAN ABSOLUTE AUTO 0.01 K/uL (0.00-0.23)
[2023-07-31 05:08] LABS: ANION GAP 8.6 mmol/L (5.0-14.0)
[2023-07-31] MEDS: Dextrose 5%-Lactated Ringers 1,000 ML IV SCH (05:27)
[2023-07-31 05:30] VITALS: BP 123/72
[2023-07-31] MEDS: Levothyroxine 100 MCG Tab PO SCH (07:33)
[2023-07-31] MEDS: Levothyroxine 25 MCG Tab PO SCH (07:34)
[2023-07-31] MEDS: Acetaminophen 325 MG Tab PO PRN (08:04)
[2023-07-31] MEDS ORDERED: Azithromycin 250 MG Tab PO SCH (09:00)
[2023-07-31 09:15] VITALS: PULSE 77
[2023-07-31] MEDS: Metoprolol Succinate 25 MG Tab.ER PO SCH (09:15)
[2023-07-31] MEDS: Losartan 50 MG Tab PO SCH (09:15)
[2023-07-31] MEDS: Hydrochlorothiazide 12.5 MG Cap PO SCH (09:15)
[2023-07-31] MEDS ORDERED: Pantoprazole 40 MG Tab.CR PO SCH (21:00)
== END 2023-07-31 09:30 | disposition home or self-care (01) | DRG 392 ==
LOC: JP.ED 19:35 → JP.MS 23:17
PROVIDERS: ADMIT Internal Medicine; ATTEND Surgery
DX: K59.09 Other constipation (principal); I10 Essential (primary) hypertension; E03.9 Hypothyroidism, unspecified; G43.909 Migraine, unspecified, not intractable, without status migrainosus; D64.9 Anemia, unspecified; Z90.89 Acquired absence of other organs; Z90.49 Acquired absence of other specified parts of digestive tract; Z87.891 Personal history of nicotine dependence; Z98.890 Other specified postprocedural states; Z98.84 Bariatric surgery status; Z90.81 Acquired absence of spleen; Z68.24 Body mass index [BMI] 24.0-24.9, adult; Z88.5 Allergy status to narcotic agent; Z79.899 Other long term (current) drug therapy; Z90.710 Acquired absence of both cervix and uterus; Z98.51 Tubal ligation status; Z90.721 Acquired absence of ovaries, unilateral
CPT/HCPCS: 36415; 74019; 74019-26; 74177; 80048; 80053; 81001; 83735; 84100; 84443; 85025; 96361; 96374; 96375; 99222; 99285-25; A9270-GY; C9113; J0456; J1170; J1200; J2060; J2405; J2765; J3490; J7030; J7121; Q9967; U0002

== ENCOUNTER 2025-04-17 15:38 | Emergency (ER) | payer OTHER ==
[2025-04-17 15:44] VITALS: BP 138/81; PULSE 89
[2025-04-17 16:28] LABS: BASOPHILS ABSOLUTE AUTO 0.05 K/uL (0.00-0.10); BASOPHILS PERCENT AUTO 0.4 % (0.1-1.3); EOSINOPHILS ABSOLUTE AUTO 0.27 K/uL (0.00-0.40); EOSINOPHILS PERCENT AUTO 2.2 % (0.0-5.4); HEMATOCRIT 31.3 % (34.3-46.0); HEMOGLOBIN 10.1 g/dL (11.2-15.5); IMMATURE GRAN ABSOLUTE AUTO 0.03 K/uL (0.00-0.23); IMMATURE GRAN PERCENT AUTO 0.2 % (0.0-0.7); LYMPHOCYTES ABSOLUTE AUTO 4.59 K/uL (0.8-3.3); LYMPHOCYTES PERCENT AUTO 37.4 % (11.4-47.7); MEAN CORPUSCULAR HEMOGLOBIN 34.4 pg (31.6-35.5); MEAN CORPUSCULAR HGB CONC 32.3 g/dL (31.6-35.5); MEAN CORPUSCULAR VOLUME 106.5 fL (81.4-99.0); MONOCYTES ABSOLUTE AUTO 1.08 K/uL (0.20-0.90); MONOCYTES PERCENT AUTO 8.8 % (3.3-12.6); NEUTROPHILS ABSOLUTE AUTO 6.25 K/uL (1.0-7.6); PLATELET COUNT,PLT 465 K/uL (130-375); RED BLOOD CELL COUNT 2.94 M/uL (3.77-5.24); WHITE BLOOD CELL COUNT,WBC 12.3 K/uL (3.2-11.0)
[2025-04-17 16:59] LABS: A/G RATIO 0.9 (1.2-2.2); ALANINE AMINOTRANSFERASE,ALT 46 U/L (12-78); ALBUMIN 2.4 g/dL (3.4-5.0); ALKALINE PHOSPHATASE 99 U/L (46-116); ASPARTATE AMNIOTRANSFERASE,AST 28 U/L (15-37); BILIRUBIN TOTAL 0.9 mg/dL (0.2-1.0); BLOOD UREA NITROGEN,BUN 13 mg/dL (7-18); CALCIUM 7.9 mg/dL (8.5-10.1); CARBON DIOXIDE,CO2 24 mmol/L (21-32); CHLORIDE,CL 110 mmol/L (100-108); CREATININE 0.9 mg/dL (0.6-1.0); EST CRCL DRUG DOSING (CG) 55.86 mL/min; ESTIMATED GFR 76 mL/min (>60); GLUCOSE RANDOM 82 mg/dL (74-106); POTASSIUM,K 3.9 mmol/L (3.6-5.2); PROTEIN TOTAL,TP 5.2 g/dL (6.4-8.2); SODIUM,NA 142 mmol/L (140-148)
[2025-04-17 17:02] LABS: ANION GAP 11.9 mmol/L (5.0-14.0); C-REACTIVE PROTEIN < 0.50 mg/dL (<0.50)
== END 2025-04-17 18:30 | disposition home or self-care (01) ==
LOC: JP.ED 15:38
DX: R60.0 Localized edema (principal); E03.9 Hypothyroidism, unspecified; Z79.899 Other long term (current) drug therapy; Z88.8 Allergy status to other drugs, medicaments and biological substances; Z79.890 Hormone replacement therapy
CPT/HCPCS: 36415; 80053; 82607; 83605; 85025; 86140; 99283

== ENCOUNTER 2025-07-16 09:03 | Emergency (ER) | payer OTHER ==
[2025-07-16 10:47] LABS: BASOPHILS ABSOLUTE AUTO 0.05 K/uL (0.00-0.10); BASOPHILS PERCENT AUTO 0.2 % (0.1-1.3); EOSINOPHILS PERCENT AUTO 0.0 % (0.0-5.4); IMMATURE GRAN ABSOLUTE AUTO 0.15 K/uL (0.00-0.23); IMMATURE GRAN PERCENT AUTO 0.7 % (0.0-0.7); LYMPHOCYTES ABSOLUTE AUTO 2.01 K/uL (0.8-3.3); LYMPHOCYTES PERCENT AUTO 8.8 % (11.4-47.7); MONOCYTES ABSOLUTE AUTO 2.62 K/uL (0.20-0.90); MONOCYTES PERCENT AUTO 11.4 % (3.3-12.6); NEUTROPHILS ABSOLUTE AUTO 18.12 K/uL (1.0-7.6); NEUTROPHILS PERCENT AUTO 78.9 % (40.0-78.1); PLATELET COUNT,PLT 442 K/uL (130-375); RED BLOOD CELL COUNT 2.90 M/uL (3.77-5.24); WHITE BLOOD CELL COUNT,WBC 23.0 K/uL (3.2-11.0)
[2025-07-16 10:51] LABS: EOSINOPHILS ABSOLUTE AUTO 0.00 K/uL (0.00-0.40)
[2025-07-16 11:11] LABS: A/G RATIO 0.5 (1.2-2.2); ALANINE AMINOTRANSFERASE,ALT 34 U/L (12-78); ASPARTATE AMNIOTRANSFERASE,AST 35 U/L (15-37); BILIRUBIN TOTAL 1.2 mg/dL (0.2-1.0); BLOOD UREA NITROGEN,BUN 16 mg/dL (7-18); CARBON DIOXIDE,CO2 25 mmol/L (21-32); CHLORIDE,CL 107 mmol/L (100-108); CREATININE 0.6 mg/dL (0.6-1.0); EST CRCL DRUG DOSING (CG) 87.64 mL/min; ESTIMATED GFR 106 mL/min (>60); GLUCOSE RANDOM 99 mg/dL (74-106); POTASSIUM,K 3.2 mmol/L (3.6-5.2); PROTEIN TOTAL,TP 5.0 g/dL (6.4-8.2); SODIUM,NA 139 mmol/L (140-148)
[2025-07-16] MEDS: Magnesium Sulfate 2 GM/50 mL 2 GM in Premix Bag 1 BAG IV ONE (11:43)
[2025-07-16 12:36] LABS: APPEARANCE,URINE CLOUDY (CLEAR); GLUCOSE,URINE NEGATIVE (NEGATIVE); OCCULT BLOOD,URINE TRACE-INTACT (NEGATIVE)
[2025-07-16 12:48] LABS: SQUAMOUS EPITHELIAL CELLS,UR RARE /HPF; UROTHELIAL CELLS,URINE RARE /HPF
[2025-07-16 13:26] VITALS: BP 122/65; PULSE 79
== END 2025-07-16 14:01 | disposition home or self-care (01) ==
LOC: JP.ED 09:03
DX: N39.0 Urinary tract infection, site not specified (principal); I10 Essential (primary) hypertension; E03.9 Hypothyroidism, unspecified; Z98.84 Bariatric surgery status; Z90.49 Acquired absence of other specified parts of digestive tract; Z90.710 Acquired absence of both cervix and uterus; Z88.5 Allergy status to narcotic agent; Z79.890 Hormone replacement therapy; Z79.899 Other long term (current) drug therapy
CPT/HCPCS: 36415; 80053; 81001; 85025; 86140; 96365; 96366; 99284; J3475; J7030